=== PATIENT | female | born 1945 | race Caucasian/White ===

== ENCOUNTER 2017-05-05 12:31 | Day surgery (SDC) | payer MEDICARE, OTHER, SELFPAY ==
[2017-05-05] VITALS (11 sets, daily range): BP systolic 126–145; BP diastolic 73–90; PULSE 85–99; RESP 16–20; TEMP 36.1–36.7; O2SAT 93–100; BMI 25.8
--- NOTE | 2017-05-05 12:51 | EKG12_ITS ---
Test Reason : CP Blood Pressure : / mmHG Vent. Rate : 093 BPM Atrial Rate : 093 BPM P-R Int : 168 ms QRS Dur : 092 ms QT Int : 356 ms P-R-T Axes : 056 -22 058 degrees QTc Int : 442 ms Normal sinus rhythm Normal ECG Confirmed by MARY HEALY, EMERITA ([id number]), research editor BOB KINSEY ([id number] on 05/06/2017 1:19:51 PM Referred By: CASSANDRA Confirmed By:EMERITA HERNANDEZ MD
--- NOTE | 2017-05-05 12:51 | RAD_ITS ---
STUDY: X-RAY CHEST REASON FOR EXAM: Female, 72 years old. One-month history of chest pain. TECHNIQUE: Single AP portable view of the chest. COMPARISON: Comparison is made with prior study dated April 08, 2017. FINDINGS: EKG electrodes are seen. The lungs are clear and expanded. There is no demonstrated pleural abnormality. There is borderline cardiomegaly. Normal mediastinum and arnav. Normal visualized pulmonary arteries. There is atherosclerotic calcification of the aortic arch with tortuosity. There is a dextroscoliosis of the thoracic spine. Normal visualized ribs, clavicles, and shoulders. There is no demonstrated abnormality of the visualized soft tissue structures of the upper abdomen. RAD/Chest 1 View (Portable) IMPRESSION: Borderline cardiomegaly. No acute abnormality is seen. Electronically Signed: Josr Su MD at 13:17 EST Tel [phone], Service support ,
--- NOTE | 2017-05-05 12:54 | ED.DCSUM_ITS ---
- ER Visit Summary Date of Service: 05/05/17 Chief Complaint: Chest pain History of Present Illness: The patient is a 72 F patient sent down by Dr. Toscano for evaluation. Seen approximately a month ago for chest pains in the ED. Boot Maker is Dr. Denny. States daily chest pain symptoms down her left arm and dyspnea with ambulation. Symptoms resolved with rest. Remote tobacco. History diabetes and hypercholesterolemia. Still with chronic back pain followed by pain management. No injuries. Also is on eardrops for right ear pain by Dr. Lazaro. No fevers. Patient had a stress test ordered today, however did not well well enough for the testing. Last stress test was in 2004. Currently no chest pains. Physical Examination: General: Alert and oriented ?3, no acute distress HEENT: Normocephalic, atraumatic. Moist mucosa membranes. Scarring around TM right ear, no erythema. Neck: supple, nontender. Cardiovascular: Regular rate and rhythm, no murmurs Respiratory: Normal breath sounds, symmetric, no distress Abdomen: Soft, nontender, nondistended Extremities: Nontender, no edema, pulses intact ?4 Neuro: no focal neurological deficits. Test Results: EKG: Sinus rate of 93, no ST or T-wave changes. Cardiac labs, chest x-ray pending. Emergency Department Course and Treatment: Patient evaluated, Dr. Toscano was bedside. EKG normal. Plan is to take the patient to straight to heart cath from the ED. Labs are ordered and is pending. She took aspirin at home today. Treatment Plan: Heart cath by cardiology Disposition: After heart cath by cardiology Impression: Acute chest pain This note was generated with [employer] dictation software. It may contain incorrect words, spelling, and punctuation that were not noted in review of the chart prior to signing ED Disposition - Plan for ED Patient: Disposition: Acute Care Hospital - Other Chief Complaint: General Illness Diagnosis: Acute chest pain
--- NOTE | 2017-05-05 13:02 | PCM.CONS.C ---
Reason for Consult Date of Consultation: 05/05/17 Reason for Consultation: Chest pain History of Present Illness: The patient is a 72 year old F no previous cardiac history who has been complaining of chest discomfort for a few months and has been seeing her primary documentation liaison Dr. Bora Denny. She describes these chest pains as being intense and sharp at times dull. She had previously been diagnosed with nonischemic cardiomyopathy and hypertension but has not had any previous cardiac catheterization. She had been scheduled to have a stress test for the above today and when she accompanied her to the hospital she also started complaining of chest discomfort at rest. It was therefore decided to defer the stress test and obtain blood work. When she went down to get the blood work done she got presyncopal and vagal. She also complained of marked shortness of breath when she exerted herself. She was therefore taken to the emergency room for evaluation and management. She was recently in the emergency room on April 08, 2017 with chest discomfort and heaviness as well as twinges. She was treated with aspirin and pain medication and subsequently discharged. It appears that she is rather concerned about this chest discomfort. She had a transthoracic echocardiogram in November 2016 which demonstrated an ejection fraction 52% with stage I diastolic dysfunction. No other wall motion abnormalities were noted. At this particular time she appears to be fading pain-free and Shultz echocardiogram demonstrates normal sinus rhythm with no acute changes. [] Past Medical History Allergies/Adverse Reactions: Allergies ciprofloxacin [From Cipro] Adverse Reaction (Verified 04/08/17 18:11) Rash erythromycin base Adverse Reaction (Verified 04/08/17 18:11) Rash Penicillins Adverse Reaction (Verified 04/08/17 18:11) Rash sulfamethoxazole [From Bactrim] Adverse Reaction (Verified 04/08/17 18:11) Rash trimethoprim [From Bactrim] Adverse Reaction (Verified 04/08/17 18:11) Rash Home Medications: Ambulatory Orders Medication Instructions Recorded Biotin 5 mg PO DAILY 03/09/17 Cholecalciferol (VIT D3) [Vitamin 5,000 unit PO DAILY 03/09/17 D] Loratadine/Pseudo 240/10 1 tablet PO DAILY 03/09/17 [Claritin-D 24 Hr] Nitroglycerin [Nitrostat] 0.4 mg SL PRN PRN 03/09/17 Omeprazole [Prilosec] 20 mg PO DAILY 03/09/17 Tizanidine HCl [Zanaflex] 4 mg PO QHS 03/09/17 Aspirin 81 mg PO DAILY 05/05/17 Docusate Sodium [Colace] 100 mg PO DAILY PRN 05/05/17 Tizanidine HCl [Tizanidine HCl] 4 mg PO BID 05/05/17 Surgical History: - - parotid surgery ASSISTANT PROFESSOR OF DRAMA History: No pertinent ASSISTANT PROFESSOR OF DRAMA history Lives: Spouse/ Significant Other Smoking Status: Former smoker Drugs: None Review of Systems - Review of Systems General: Denies: Fever, Night Sweats, Fatigue Cardiovascular: Reports: Chest Discomfort at Rest, Chest Discomfort with Exertion, Chest Pressure, Near Syncope. Denies: Chest Discomfort, Shortness of Breath, Orthopnea, PND, Peripheral Edema, Palpitations, Lightheadedness, Dizziness, Syncope Respiratory: Denies: Cough, Sputum Production, Hemoptysis Gastrointestinal: Denies: Hematemesis, Hematochezia, Melena Genitourinary: Denies: Dysuria, Hematuria Skin: Denies: Rash Psychiatric: Reports: Anxiety Subjectve: Lady in no apparent distress. Objective: Vital Signs Temp Pulse Resp BP Pulse Ox 97 F L 97 18 139/86 H 97 05/05/17 12:32 05/05/17 12:32 05/05/17 12:32 05/05/17 12:32 05/05/17 12:32 Oxygen Delivery Method Room Air Weight: 165 lb Body Mass Index (BMI) 25.8 General: Awake, Alert, Oriented x 3 HEENT: PERRL, EOMI, Sclera Non Icteric Neck: Supple, Good ROM, No Lymph Node Enlargement Lungs: Clear to auscultation Cardiovascular: Regular Rhythm, Normal S1, Normal S2, No Murmurs, No Rubs, No Gallops Vascular: No Carotid Bruits, Normal Femoral Pulses, Normal Radial Pulses, Normal Dorsalis Pedal Pulse, Normal Posterior Tibial Pulses Abdomen: Bowel Sounds Present, Soft, Non Tender, No HSM, No Organomegaly Extremities: No Cyanosis, No Clubbing, No edema Neurological: No Focal Motor or Sensory Deficit Rhythm: EKG: Sinus rhythm with no acute changes. Assessment/Plan 1. Chest discomfort Etiology of her chest discomfort is not clear at this particular time however she appears to be having it more frequently and more intensely and at this time it was decided that we should do further stress testing. I did talk to her and we decided to pursue a cardiac catheterization to assess her coronary anatomy. The risks benefits and alternatives have been explained to her she understands and agrees to proceed. Depending on the findings further recommendations will be made. 2. Hypertension Blood pressure appears to be under good control at this particular time and I would not recommend making any other changes. Thank you for allowing me to participate in the care of your patient. Please don't hesitate to call if any issues arise
[2017-05-05 13:19] LABS: Absolute Lymphocyte Count 1.33 X10^3/ul (0.83-4.51); Absolute Neutrophil Count 3.6 X10^3/uL (2.0-7.7); Basophil# 0.03 X10^3/uL; Basophil% 0.5 % (0-1); Eosinophil# 0.06 X10^3/uL; Eosinophils% 1.1 % (0-5); Hematocrit 38.5 % (37-47); Hemoglobin 12.6 g/dl (12.0-15.0); Lymphocyte # 1.33 X10^3/ul (4.0); Lymphocyte % 24.1 % (19-41); Mean Corp Hgb Conc 32.7 g/gl (32-36); Mean Corpuscular Hgb 29.5 pg (27.0-32.0); Mean Corpuscular Volume 90.2 fL (81-99); Mean Platelet Vol. 9.8 fl (6.2-12.0); Monocyte# 0.54 X10^3/uL; Monocyte% 9.8 % (0-10); Neutrophil # 3.55 X10^3/uL (2.7-7.7); Neutrophil % 64.3 % (47-70); Platelet Count 245 K/mm3 (150-450); RBC Distribution Width CV 12.2 % (11.6-14.6); RBC Distribution Width SD 39.7 fl (35.1-43.9); Red Blood Count 4.27 M/mm3 (4.2-5.4); White Blood Count 5.5 K/mm3 (4.4-11.0)
[2017-05-05 13:22] LABS: Prothrombin Time (Protime)PT. 12.8 SECONDS (11.7-14.9)
[2017-05-05 13:23] LABS: Partial Thromboplast Time 27.5 Seconds (24.1-36.2)
[2017-05-05 13:27] LABS: POSITIVE COUNT NO; POSITIVE DIFFERENTIAL NO; POSITIVE MORPHOLOGY NO
--- NOTE | 2017-05-05 13:29 | NURSING ---
PT IS NOT A STEMI. PT WAS SET UP FOR AN OUTPATIENT STRESS TEST, HOWEVER THE STORE PRODUCT DEMONSTRATOR WANTED TO JUST DO A CATH ON HER AND THEN DISCHARGE HER FROM BUSINESS INTEGRATION ANALYST.
[2017-05-05 13:30] LABS: Anion Gap 10 (5-15); BUN 20 mg/dL (7-18); BUN/Creat Ratio 25.6 RATIO (10-20); Calcium,Total 9.3 mg/dL (8.5-10.1); Chloride 105 mmol/L (98-107); Creatinine, Serum 0.78 mg/dL (0.55-1.02); EST Glomerular Filtration Rate 77 mL/min (>60); Est Glom Filt Rate - Afr Amer 93 mL/min (>60); Estimated Creatinine Clearance 49.45 ml/min; Glucose 134 mg/dL (74-106); Potassium 3.9 mmol/L (3.5-5.1); Sodium Level 140 mmol/L (136-145)
--- NOTE | 2017-05-05 14:42 | CL.D_ITS ---
Patient Name: AMALIA BRIGGS Study Date: 05/05/2017 Performing: Farshad Toscano MD Ht: 67 inches 170 cm : 1945 Wt: 165.6 lbs 75 kg Age: 72 Gender: female BSA: 1.86 PROCEDURE(S) PERFORMED [id number]/LV CLINICAL PROFILE AND INDICATIONS INDICATIONS: 72 yo lady with chest pain Stress/Imaging Stress/Image Study Performed: No CAD Presentations: No Sxs, no angina. Symptom unlikely to be ischemic. CONCLUSIONS Non obstructive coronary arteries RECOMMENDATIONS Medical therapy DESCRIPTION OF PROCEDURE The patient arrived to the procedure lab. The risks and benefits of the procedure as well as a full d escription of our services here and current unavailability of surgical backup were fully explained to the patient and/or their significant other prior to the catheterization. The Timeout was completed, verifying the correct patient and procedure. The patient's procedural site was prepped and draped in the usual fashion. Local anesthetic was given subcutaneously to right radial region with Lidocaine 2% . Using a modified Seldinger technique, arterial access was obtained via the right radial artery, a 6 Fr sheath was inserted. Left Coronary Artery selective angiography was performed in multiple views u sing a 5 Fr. 4.0 Ulm catheter. Right Coronary Artery selective angiography was then performed in mu ltiple views using a 5 Fr. 4.0 Ulm catheter. Left Ventriculography was performed in SALINAS projection using a 5 Fr. Pigtail catheter. LV to AO pullback pressures were then recorded.The arterial sheath wa s pulled and a TR Band was applied for hemostasis- 14cc of air CORONARY ANGIOGRAPHY DOMINANCE: Right Dominant LEFT HEART ASSESSMENT Left Ventricular Ejection Fraction: by LV Gram 55 % Normal Left Ventricular systolic function LEFT MAIN: Angiographically normal LEFT ANTERIOR DECENDING ARTERY: Mild luminal irregularities MID LAD: Moderate luminal irregularities up to 50% CIRCUMFLEX ARTERY: Mild luminal irregularities RIGHT CORONARY ARTERY: Mild luminal irregularities COMPLICATIONS No Complications PROCEDURE MEDICATIONS Versed 1 mg IV Fentanyl 50 mcg IV Versed 1 mg IV Oxygen: 2 L/min via nasal cannula Heparin diluted in 23cc Heparinized saline. Patient given 10cc IA of this solution. 05/05/2017 14:12: 53 Verapamil 2.5mg, Ntg 100mcgs, 2000 units of Heparin diluted in 23cc Heparinized saline. Patient give n 10cc IA of this solution. 05/05/2017 14:12:53 SUMMARY OF HEMODYNAMIC DATA Time AIR REST ECG 13:47:01 AO 102/77 (91) SA 14:15:18 LV 142/8, 16 14:23:26 LV 145/6, 13 14:23:33 LV 141/8, 15 14:24:38 LVp 143/7, 15 14:24:42 AOp 130/67 (95) 14:24:47 Signed By Farshad Toscano MD On 05/05/2017 2:42:05 PM Farshad Toscano MD
== END 2017-05-05 18:20 | disposition home or self-care (01) ==
LOC: ED 13:21 → CLSP 13:25 → PCU 14:56
PROVIDERS: Emergency Provider Emergency Medicine; Family Provider Internal Medicine; PCP Internal Medicine; Visit Provider Internal Medicine Cardiovascular Disease
DX: R07.9 Chest pain, unspecified (principal); I10 Essential (primary) hypertension; Z87.891 Personal history of nicotine dependence
CPT/HCPCS: 71045; 80048; 84484; 85025; 85610; 85730; 93005; 93458; 99152; 99153; 99284; J7040; Q9967; A4216; C1769; C1894

== ENCOUNTER 2017-09-28 09:41 | Emergency (ER) | payer MEDICARE, OTHER, SELFPAY ==
[2017-09-28 09:42] VITALS: BP 152/91; PULSE 98; RESP 15; TEMP 36.1; O2SAT 98; BMI 25.7
--- NOTE | 2017-09-28 09:58 | CT_ITS ---
STUDY: CT BRAIN WITHOUT CONTRAST REASON FOR EXAM: Female, 72 years old. Right-sided facial numbness for one month. RADIATION DOSAGE (If Supplied By Facility): CTDIvol = ( 44.99 ) mGy, DLP = ( 846.73 ) mGycm TECHNIQUE: Transaxial CT imaging of the brain was performed without administration of intravenous contrast material. Multiplanar reformations are submitted for interpretation. Individualized dose optimization techniques were used for this CT. COMPARISON: Prior comparable comparison studies are not available for review at this time. FINDINGS: Patient apparently has had surgical resection of the right parotid gland. 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 There is opacification of the right mastoid. This may be the result of acute or chronic disease. Sequela of treatment and/or metastatic parotid cancer is also possible. There is mild cerebral atrophy with widening of the extra-axial spaces and ventricular dilatation. There are areas of decreased attenuation within the white matter tracts of the supratentorial brain, consistent with microvascular disease changes. There are focal calcifications within the basal ganglia. Normal brainstem. There is mild cerebellar atrophy. There is no intracranial hemorrhage. There is mild atherosclerotic calcification of intracranial arteries. Normal visualized paranasal sinuses. CT/Brain/Head without Contrast IMPRESSION: 1. Chronic involutional changes of the brain. 2. No CT evidence of acute intracranial hemorrhage. 3. Status post right-sided parotidectomy. 4. Abnormal attenuation and opacification of the right-sided mastoid air cells may be the result of radiation therapy. An acute inflammatory process cannot be excluded. Electronically Signed: Trina Aguila MD at 10:39 EDT , Service support ,
--- NOTE | 2017-09-28 09:59 | EKG12_ITS ---
Test Reason : OTHER PAIN Blood Pressure : / mmHG Vent. Rate : 088 BPM Atrial Rate : 088 BPM P-R Int : 152 ms QRS Dur : 088 ms QT Int : 354 ms P-R-T Axes : 041 -21 049 degrees QTc Int : 428 ms Normal sinus rhythm Leftward axis Poor R wave progression Confirmed by DALE HEALY, JOSE ([id number]), editor house organ BOB KINSEY ([id number]) on 10/02/2017 1:02:57 PM Referred By: KOLE Confirmed By:JOSE HUNTER MD
--- NOTE | 2017-09-28 10:06 | ED.VISSUMM ---
- ER Visit Summary Date of Service: 09/28/17 Chief Complaint: Pain, arm pain, shortness of breath History of Present Illness: The patient is a 72 F who presents with multiple complaints. She has a history of chronic back pain and pain that radiates down her left arm. She states the pain has become constant and more severe. She has tried injections in the past with pain management. She states she is currently just taking Tylenol or ibuprofen. She is also complaining of right facial numbness for the past 1 month. She reports a history of shingles to that same area approximately a year and a half ago, the numbness did not start until recently. She complains of a full sensation in her right ear as if there is something in her ear. She is complaining of shortness of breath on exertion and states she is only able to take small steps when she walks, describing her legs just cannot keep up with her. She states she gets a pressure sensation in her trunk region with exertion. Patient's records were reviewed. She did have a cardiac cath in April that showed no significant coronary disease. 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 She again reports no facial numbness to that area after her surgery, it has only started in the past month or so. Physical Examination: Blood pressure is 152/91, temperature 97, heart rate 98, respiratory rate 15, pulse ox 98% on room air. Patient sitting upright in bed no acute distress. Head and neck examination reveals cerium in the right ear canal. Left TM is clear. There is no facial edema or erythema. Heart is regular rate and rhythm. Lung sounds are clear with good air movement. Abdomen is soft nontender. Patient does report decreased sensation to light touch over the right face. She has full range of motion to all extremities. She has strong and equal distal pulses throughout. Test Results: EKG is sinus 88 with no sign of acute ischemia. Two-view chest x-ray is normal. CT the head shows chronic involutional changes. There is abnormal attenuation of the right mastoid air cell which may be result of radiation. Acute inflammatory process is not excluded. Patient does confirm that she had radiation to this area. CBC and chemistry studies are unremarkable. Troponin is less than 0.015. D-dimer 0.47. Emergency Department Course and Treatment: Patient was given 1 tab of p.o. oxycodone. Debrox was placed in the right ear and right ear was irrigated. On repeat examination cerumen has been removed. She has a slightly hazy fluid behind the TM but no erythema or bulging. My suspicion is that her facial paresthesias are secondary to nerve damage from her prior surgery as well as her shingles. She was encouraged to follow-up with her primary care physician for this. She will be referred to different pain management physicians in the area as she was would like a second opinion. Treatment Plan: [] Disposition: Discharge Impression: 1. Chronic back pain with radiculopathy 2. Dyspnea, uncertain etiology This note was generated with [employer] dictation software. It may contain incorrect words, spelling, and punctuation that were not noted in review of the chart prior to signing ED Disposition - Plan for ED Patient: Chief Complaint: Other, Pain/Inj Referrals: Janki Conrad MD [Primary Care Provider] -
[2017-09-28] MEDS: oxyCODONE 5 MG Tablet PO (10:12)
[2017-09-28] MEDS: Carbamide Peroxide 15 ML Bottle 5 DRP OTIC (10:13)
--- NOTE | 2017-09-28 10:30 | RAD_ITS ---
STUDY: X-RAY CHEST REASON FOR EXAM: Female, 72 years old. Shortness of breath. TECHNIQUE: PA and lateral views of the chest. COMPARISON: May 05, 2017. FINDINGS: Cardiac monitoring leads are present. There are interstitial fibrotic changes of the lungs. There is pleural fibrotic thickening of the pulmonary lung apices. Normal size heart. There are calcified mediastinal and hilar lymph nodes. Normal visualized pulmonary arteries. There is atherosclerotic tortuosity of the aortic arch and descending thoracic aorta. There is demineralization of the osseous structures. There are multilevel degenerative changes of the thoracic spine. Normal visualized ribs, clavicles, and shoulders. Endovascular coils are visible in left upper quadrant. RAD/Chest PA and Lateral IMPRESSION: No radiographic evidence of acute cardiopulmonary disease. Electronically Signed: Trina Aguila MD at 10:43 EDT , Service support ,
[2017-09-28 10:38] LABS: Absolute Lymphocyte Count 0.96 X10^3/ul (0.83-4.51); Absolute Neutrophil Count 3.7 X10^3/uL (2.0-7.7); Basophil# 0.02 X10^3/uL; Basophil% 0.4 % (0-1); Eosinophils% 1.9 % (0-5); Hematocrit 37.6 % (37-47); Hemoglobin 12.8 g/dl (12.0-15.0); Lymphocyte # 0.96 X10^3/ul (4.0); Lymphocyte % 18.6 % (19-41); Mean Corpuscular Hgb 30.8 pg (27.0-32.0); Mean Corpuscular Volume 90.4 fL (81-99); Mean Platelet Vol. 9.6 fl (6.2-12.0); Monocyte# 0.42 X10^3/uL; Monocyte% 8.1 % (0-10); Neutrophil # 3.65 X10^3/uL (2.7-7.7); Neutrophil % 70.8 % (47-70); POSITIVE COUNT NO; POSITIVE DIFFERENTIAL NO; POSITIVE MORPHOLOGY NO; Platelet Count 283 K/mm3 (150-450); RBC Distribution Width SD 39.6 fl (35.1-43.9); Red Blood Count 4.16 M/mm3 (4.2-5.4); White Blood Count 5.2 K/mm3 (4.4-11.0)
[2017-09-28 10:39] LABS: D-Dimer Quantitative (DVT/PE) 0.47 FEU/ug/m (0.27-0.49)
[2017-09-28 10:47] LABS: Anion Gap 10 (5-15); BUN 18 mg/dL (7-18); BUN/Creat Ratio 20.2 RATIO (10-20); Calcium,Total 9.1 mg/dL (8.5-10.1); Chloride 101 mmol/L (98-107); Creatinine, Serum 0.89 mg/dL (0.55-1.02); EST Glomerular Filtration Rate 66 mL/min (>60); Est Glom Filt Rate - Afr Amer 80 mL/min (>60); Estimated Creatinine Clearance 55.56 ml/min; Glucose 140 mg/dL (74-106); Sodium Level 134 mmol/L (136-145)
--- NOTE | 2017-09-28 11:37 | ED.DEP ---
ED Disposition - Plan for ED Patient: Disposition: Home or Assisted Living Chief Complaint: Other, Pain/Inj Instructions: ED Neck Back Pain General, ED Dyspnea Shortness of Breath Prescriptions: Oxycodone HCl/Acetaminophen [Percocet 5/325] 1 tablet PO Q6H PRN PRN 3 Days #12 tablet PRN Reason: Pain Referrals: Janki Conrad MD [Primary Care Provider] - As soon as possible
--- NOTE | 2017-09-28 11:43 | ED.DEP ---
ED Disposition - Plan for ED Patient: Disposition: Home or Assisted Living Chief Complaint: Other, Pain/Inj Instructions: ED Dyspnea Shortness of Breath, ED Neck Back Pain General Prescriptions: Oxycodone HCl/Acetaminophen [Percocet 5/325] 1 tablet PO Q6H PRN PRN 3 Days #12 tablet PRN Reason: Pain Referrals: Janki Conrad MD [Primary Care Provider] - As soon as possible Renato Romero MD [STAFF PHYSICIAN] - Haroon Fulton MD [STAFF PHYSICIAN] -
== END 2017-09-28 11:50 | disposition home or self-care (01) ==
PROVIDERS: Emergency Provider Emergency Medicine; Family Provider Internal Medicine; PCP Internal Medicine
DX: R06.02 Shortness of breath (principal); G89.29 Other chronic pain; M54.9 Dorsalgia, unspecified; M54.10 Radiculopathy, site unspecified; R06.00 Dyspnea, unspecified; E11.9 Type 2 diabetes mellitus without complications; E78.00 Pure hypercholesterolemia, unspecified; Z85.89 Personal history of malignant neoplasm of other organs and systems
CPT/HCPCS: 70450; 71046; 80048; 84484; 85025; 85379; 93005; 99285

== ENCOUNTER 2017-10-14 18:18 | Emergency (ER) | payer MEDICARE, OTHER, SELFPAY ==
[2017-10-14 18:18] VITALS: BP 157/82; PULSE 100; PULSE 97; RESP 16; RESP 18; TEMP 36.9; O2SAT 98; O2SAT 99; BMI 25.0
--- NOTE | 2017-10-14 18:31 | ED.RN ---
RN CALLED FOR EKG, PULLED OLD EKG'S FOR
[2017-10-14 18:32] VITALS: BP 141/79; PULSE 98; RESP 20; O2SAT 96
--- NOTE | 2017-10-14 18:40 | US_ITS ---
STUDY: VENOUS DOPPLER ULTRASOUND - LEFT LOWER EXTREMITY REASON FOR EXAM: Female, 72 years old. Left leg pain. TECHNIQUE: Ultrasound evaluation of the deep vein system to include brar-scale imaging and compression was performed. Brar-scale imaging and Doppler sonographic evaluation, including duplex spectral analysis and qualitative color flow sonography, was performed. COMPARISON: None. FINDINGS: Common Femoral Vein: Normal compression, spontaneity and augmentation. Normal color Doppler. Common Femoral Vein/Greater Saphenous Junction: Normal compression, spontaneity and augmentation. Normal color Doppler. Deep Femoral Vein: Normal compression, spontaneity and augmentation. Normal color Doppler. Femoral Proximal: Normal compression, spontaneity and augmentation. Normal color Doppler. Femoral Middle: Normal compression, spontaneity and augmentation. Normal color Doppler. Femoral Distal: Normal compression, spontaneity and augmentation. Normal color Doppler. Popliteal Vein: Normal compression, spontaneity and augmentation. Normal color Doppler. Posterior Tibial Vein: Normal compression, spontaneity and augmentation. Normal color Doppler. Peroneal Vein: Normal compression, spontaneity and augmentation. Normal color Doppler. There is no demonstrated deep venous thrombosis. US/Venous Duplex Imag/Limited/Uni IMPRESSION: Normal venous Doppler ultrasound of the lower extremity. Electronically Signed: Fabio Poon MD at 19:14 EDT , Service support ,
--- NOTE | 2017-10-14 19:17 | ED.DCSUM_ITS ---
- ER Visit Summary Date of Service: 10/14/17 Chief Complaint: Left leg pain History of Present Illness: The patient is a 72 F who presents with left leg pain. She complains of aching pain in her calf that began earlier today. She also complains of some numbness in the lower leg and foot. She does complain of back pain and left arm pain as well however this is been a chronic recurrent issue which she was recently evaluated for. No chest pain or shortness of breath. No recent travel or surgery. No history of DVT or pulmonary embolism. No abdominal pain. Physical Examination: Afebrile vitals are unremarkable Moist mucous membranes Heart regular rate and rhythm Lungs are clear Abdomen soft Left calf tenderness but easily palpable dorsalis pedis pulse brisk capillary refill normal sensation to light touch Normal strength and sensation 5 out of 5 dorsiflexion, plantar flexion, extensor hallucis longus Test Results: Venous duplex is negative for DVT Emergency Department Course and Treatment: Venous duplex was obtained which is negative. Patient does not have evidence of arterial ischemia. Sensation is intact to light touch. Advised that this could be due to lumbar radiculopathy. She was advised to follow-up with her primary care physician. She was instructed on supportive care. She was discharged. Treatment Plan: [] Disposition: Discharge Impression: Left leg pain This note was generated with [employer] dictation software. It may contain incorrect words, spelling, and punctuation that were not noted in review of the chart prior to signing ED Disposition - Plan for ED Patient: Chief Complaint: Other, Pain/Inj Referrals: Janki Conrad MD [Primary Care Provider] -
--- NOTE | 2017-10-14 19:18 | ED.DEP ---
ED Disposition - Plan for ED Patient: Chief Complaint: Other, Pain/Inj Instructions: ED Muscle Pain Leg Cramps Referrals: Janki Conrad MD [Primary Care Provider] -
[2017-10-14 19:23] VITALS: BP 138/78; PULSE 92; RESP 14; O2SAT 94
== END 2017-10-14 19:32 | disposition home or self-care (01) ==
LOC: ED 19:11
PROVIDERS: Emergency Provider Emergency Medicine; Family Provider Internal Medicine; PCP Internal Medicine
DX: M79.662 Pain in left lower leg (principal); R20.0 Anesthesia of skin; M54.9 Dorsalgia, unspecified; M79.602 Pain in left arm; G89.29 Other chronic pain; K21.9 Gastro-esophageal reflux disease without esophagitis; E11.9 Type 2 diabetes mellitus without complications; Z86.39 Personal history of other endocrine, nutritional and metabolic disease; Z90.49 Acquired absence of other specified parts of digestive tract; Z79.82 Long term (current) use of aspirin; Z79.899 Other long term (current) drug therapy
CPT/HCPCS: 93971; 99282

== ENCOUNTER 2017-10-29 18:32 | Emergency (ER) | payer MEDICARE, OTHER, SELFPAY ==
[2017-10-29 18:33] VITALS: BP 166/94; PULSE 94; RESP 18; TEMP 36.9; O2SAT 97; BMI 25.0
--- NOTE | 2017-10-29 19:05 | RAD_ITS ---
STUDY: X-RAY CHEST REASON FOR EXAM: Female, 72 years old. Chest pain TECHNIQUE: 1 view COMPARISON: Prior chest radiograph of September 28, 2017 FINDINGS: The lungs are clear and expanded. Mild elevation of the left diaphragm. Normal size heart. Normal mediastinum and arnav. Normal visualized pulmonary arteries. There is atherosclerotic calcification of the aortic arch with tortuosity. There are diffuse degenerative changes of the visualized thoracic spine with a dextroscoliosis. Demineralized osseous structures. Stable group of coiled metallic opacities of the left abdomen. RAD/Chest 1 View (Portable) IMPRESSION: No acute cardiopulmonary findings or changes. Negative for new consolidation, focal atelectasis, cardiomegaly or pleural effusion. Mild elevation of the left diaphragm. Electronically Signed: Char Goldman MD at 19:16 EDT , Service support ,
[2017-10-29 19:14] VITALS: O2SAT 95
[2017-10-29] MEDS: 0.9% Normal Saline 1,000 ML 150 ML IV (19:15)
[2017-10-29] MEDS: Aspirin 81 MG TAB.CHEW 324 MG PO (19:15)
[2017-10-29 19:20] LABS: Absolute Lymphocyte Count 1.43 X10^3/ul (0.83-4.51); Absolute Neutrophil Count 4.2 X10^3/uL (2.0-7.7); Basophil# 0.02 X10^3/uL; Basophil% 0.3 % (0-1); Eosinophil# 0.11 X10^3/uL; Eosinophils% 1.8 % (0-5); Hematocrit 37.9 % (37-47); Hemoglobin 12.8 g/dl (12.0-15.0); Lymphocyte # 1.43 X10^3/ul (4.0); Lymphocyte % 22.8 % (19-41); Mean Corp Hgb Conc 33.8 g/gl (32-36); Mean Corpuscular Hgb 30.3 pg (27.0-32.0); Mean Corpuscular Volume 89.8 fL (81-99); Mean Platelet Vol. 9.9 fl (6.2-12.0); Monocyte# 0.54 X10^3/uL; Monocyte% 8.6 % (0-10); Neutrophil # 4.16 X10^3/uL (2.7-7.7); Neutrophil % 66.3 % (47-70); POSITIVE COUNT NO; POSITIVE DIFFERENTIAL NO; POSITIVE MORPHOLOGY NO; Platelet Count 287 K/mm3 (150-450); RBC Distribution Width SD 38.9 fl (35.1-43.9); Red Blood Count 4.22 M/mm3 (4.2-5.4); White Blood Count 6.3 K/mm3 (4.4-11.0)
[2017-10-29 20:05] VITALS: BP 164/86; PULSE 89; RESP 13; O2SAT 95
[2017-10-29 20:17] LABS: Anion Gap 11 (5-15); BUN 14 mg/dL (7-18); BUN/Creat Ratio 14.5 RATIO (10-20); Calcium,Total 9.1 mg/dL (8.5-10.1); Chloride 98 mmol/L (98-107); Creatinine, Serum 0.97 mg/dL (0.55-1.02); EST Glomerular Filtration Rate 60 mL/min (>60); Est Glom Filt Rate - Afr Amer 73 mL/min (>60); Estimated Creatinine Clearance 50.98 ml/min; Glucose 189 mg/dL (74-106); Potassium 3.8 mmol/L (3.5-5.1); Sodium Level 133 mmol/L (136-145)
--- NOTE | 2017-10-29 20:36 | NURSING ---
PATIENT TOLD TRANSIT OPERATOR AND THIS NURSE ABOUT HER MISSING PURPLE CANE. THIS NURSE AND OTHER STAFF LOOKED IN THE WAITING ROOM AND TRIAGE ROOM ALONG WITH HER ROOM AND WE ARE UNABLE TO LOCATE IT. THIS NURSE LET SECURITY KNOW ABOUT AND HE IS GOING TO FOLLOW UP WITH THE PATIENT.
--- NOTE | 2017-10-29 20:58 | ED.RN ---
DR. JANE MADE AWARE OF PATIENT'S NAUSEA AND VERBALLY TOLD ME TO PUT AN ORDER IN FOR ZOFRAN 4 MG WHICH I DID AND GAVE TO HER. THE HEMP FIBER TAKER OFF CHECKED IN THE PATIENT'S CAR AND SHE LEFT HER PURPLE CANE IN THERE. PATIENT WAS MADE AWARE.
[2017-10-29 21:02] VITALS: BP 146/106; PULSE 90; RESP 16; O2SAT 96
[2017-10-29] MEDS: Ondansetron 4 MG/2 ML Vial IV (21:02)
--- NOTE | 2017-10-29 21:56 | ED.VISSUMM ---
- ER Visit Summary Date of Service: 10/29/17 Chief Complaint: [Chest pain] History of Present Illness: The patient is a 72 F [presents the emergency department complaint chest pain for over 2 weeks. Patient states that she has intermittent episodes lasting over an hour at times. Patient states at times it is brought on by exertion. Patient describes a lot of pressure in center of her chest and epigastric region. Patient also describes a cough that she has had for 5 weeks and right ear congestion. Patient has been seen by ENT and is currently on clindamycin. Patient denies recent travel or surgery. Patient tells me that she was seen by cardiology and had a heart catheterization that was done in April of this year that did not show anything significant that would require any type of intervention. Patient does not currently have discomfort.] Physical Examination: [HEENT-PERRLA, EOMI. Cranial nerves II through XII grossly intact. TMs clear. Mucous membranes moist. No adenopathy. Cardiovascular-regular rate and rhythm without murmur or ectopy Lungs-clear to auscultation, chest wall stable without crepitus or subcu emphysema Abdomen-normoactive bowel sounds, soft, nontender, no rebound or rigidity, no peritoneal signs. Extremities-intact ?4, normal range of motion, normal pulses, atraumatic] Test Results: [EKG obtained on arrival showed a normal sinus rhythm with a ventricular rate of 92 bpm with no acute ST segment changes. CBC with differential obtained showed a white count of 6.3, hemoglobin 12.8, hematocrit 38, platelets 287. Chemistries unremarkable. Troponin is less than 0.015. D-dimer was 0.40. Chest x-ray showed a mild left hemidiaphragm elevation otherwise nothing acute.] Emergency Department Course and Treatment: [Patient received aspirin in the emergency department] Treatment Plan: [I did review patient's heart cath from April of this year and it was noted that she had no obstructive coronary arteries. Her LV function was 55%, left main was angiographically normal, left anterior descending had mild luminal irregularities, mid LAD had moderate luminal irregularities up to 50%, circumflex artery had mild luminal irregularities, and right coronary artery had mild luminal irregular piece. At this point I do not feel her chest pain is cardiac in nature. Patient also with respiratory symptoms including persistent cough and deep congestion. I discussed case with patient's tight cooper Dr. Froylan Saunders. At this point patient will be given referral to pulmonology for follow-up.] Disposition: [Discharged home in stable condition] Impression: [Chest pain-etiology uncertain Cough-chronic] This note was generated with [employer] dictation software. It may contain incorrect words, spelling, and punctuation that were not noted in review of the chart prior to signing ED Disposition - Plan for ED Patient: Chief Complaint: Chest Pain Referrals: Janki Conrad MD [Primary Care Provider] -
--- NOTE | 2017-10-29 21:59 | ED.DCSUM_ITS ---
- ER Visit Summary Date of Service: 10/29/17 Chief Complaint: [Chest pain] History of Present Illness: The patient is a 72 F [presents the emergency department complaint chest pain for over 2 weeks. Patient states that she has intermittent episodes lasting over an hour at times. Patient states at times it is brought on by exertion. Patient describes a lot of pressure in center of her chest and epigastric region. Patient also describes a cough that she has had for 5 weeks and right ear congestion. Patient has been seen by ENT and is currently on clindamycin. Patient denies recent travel or surgery. Patient tells me that she was seen by cardiology and had a heart catheterization that was done in April of this year that did not show anything significant that would require any type of intervention. Patient does not currently have discomfort.] Physical Examination: [HEENT-PERRLA, EOMI. Cranial nerves II through XII grossly intact. TMs clear. Mucous membranes moist. No adenopathy. Cardiovascular-regular rate and rhythm without murmur or ectopy Lungs-clear to auscultation, chest wall stable without crepitus or subcu emphysema Abdomen-normoactive bowel sounds, soft, nontender, no rebound or rigidity, no peritoneal signs. Extremities-intact ?4, normal range of motion, normal pulses, atraumatic] Test Results: [EKG obtained on arrival showed a normal sinus rhythm with a ventricular rate of 92 bpm with no acute ST segment changes. CBC with differential obtained showed a white count of 6.3, hemoglobin 12.8, hematocrit 38, platelets 287. Chemistries unremarkable. Troponin is less than 0.015. D- dimer was 0.40. Chest x-ray showed a mild left hemidiaphragm elevation otherwise nothing acute.] Emergency Department Course and Treatment: [Patient received aspirin in the emergency department] Treatment Plan: [I did review patient's heart cath from April of this year and it was noted that she had no obstructive coronary arteries. Her LV function was 55%, left main was angiographically normal, left anterior descending had mild luminal irregularities, mid LAD had moderate luminal irregularities up to 50%, circumflex artery had mild luminal irregularities, and right coronary artery had mild luminal irregular piece. At this point I do not feel her chest pain is cardiac in nature. Patient also with respiratory symptoms including persistent cough and deep congestion. I discussed case with patient's white sugar supervisor Dr. Froylan Saunders. At this point patient will be given referral to pulmonology for follow-up.] Disposition: [Discharged home in stable condition] Impression: [Chest pain-etiology uncertain Cough-chronic] This note was generated with [employer] dictation software. It may contain incorrect words, spelling, and punctuation that were not noted in review of the chart prior to signing ED Disposition - Plan for ED Patient: Chief Complaint: Chest Pain Referrals: Janki Conrad MD [Primary Care Provider] -
--- NOTE | 2017-10-29 22:00 | ED.DEP ---
ED Disposition - Plan for ED Patient: Chief Complaint: Chest Pain Instructions: ED Chest Pain Atypical Unkn Cause Referrals: Janki Conrad MD [Primary Care Provider] - Bogdan Cherry MD [STAFF PHYSICIAN] - 5-7 Days
[2017-10-29 22:03] VITALS: BP 165/93; PULSE 88; RESP 15; O2SAT 95
[2017-10-29 22:04] VITALS: BP 165/93; PULSE 88; RESP 17; O2SAT 94
== END 2017-10-29 22:13 | disposition home or self-care (01) ==
PROVIDERS: Emergency Provider Emergency Medicine; Family Provider Internal Medicine; PCP Internal Medicine
DX: R07.9 Chest pain, unspecified (principal); R05 Cough; R06.00 Dyspnea, unspecified; E11.9 Type 2 diabetes mellitus without complications; Z85.89 Personal history of malignant neoplasm of other organs and systems
CPT/HCPCS: 71045; 80048; 84484; 85025; 85379; 93005; 99284; J7030; A4216; J2405

== ENCOUNTER 2017-12-18 12:26 | Emergency (ER) | payer MEDICARE, OTHER, SELFPAY ==
[2017-12-18 12:27] VITALS: BP 127/76; PULSE 101; RESP 18; TEMP 36.6; O2SAT 98; BMI 25.8
[2017-12-18 12:33] VITALS: BP 120/75; PULSE 75; RESP 14; O2SAT 98
--- NOTE | 2017-12-18 13:03 | ED.VISSUMM ---
- ER Visit Summary Date of Service: 12/18/17 Chief Complaint: Chronic back pain History of Present Illness: The patient is a 72 F history of chronic pain for years. States that she sees pain management Dr. Alonso's office. Also see Dr. Conrad. Has a pending MRI at [facility] in 3-4 weeks. States he has to be sedated for that to be done. She states her pain is progressively gotten worse over the last several months. Nothing helps her pain. She states she has no relief with Tylenol, Motrin, Percocet, Vicodin or other medications. She denies any recent falls. She denies any recent fever. She denies any weakness to her upper or lower extremities. States the pain starts in her lower back goes all the way up to her neck. Sometimes radiates down her left arm. She denies any bowel or bladder incontinence. Physical Examination: Well-appearing older female. Family at bedside. Vital signs stable afebrile. H EENT exam unremarkable. Neck nontender. Lungs clear to auscultation bilaterally. Heart regular rhythm no murmur. Chest nontender. Abdomen soft nontender. She is moving all 4 extremities. They are neurovascularly intact. She has 5 out of 5 disabilities caregiver strength in both upper extremities. Dorsi and plantar flexion intact in both lower extremities. No cauda equina. No saddle anesthesia. Normal medial thigh sensation. Her back has diffuse tenderness along the spine. There is no redness or warmth. No signs of trauma. Neurologically she is awake and alert with no focal motor or sensory deficits. Test Results: None Emergency Department Course and Treatment: I discussed with the patient and family with limited options since nothing is helped her. She requested to be tried on a fentanyl patch. She will be discharged to home and she will follow-up with her pain management physician Dr. Alonso. Treatment Plan: Fentanyl patch. Disposition: Discharge Impression: Acute on chronic back pain This note was generated with [employer] dictation software. It may contain incorrect words, spelling, and punctuation that were not noted in review of the chart prior to signing ED Disposition - Plan for ED Patient: Chief Complaint: Back Referrals: Janki Conrad MD [Primary Care Provider] -
--- NOTE | 2017-12-18 13:06 | ED.DCSUM_ITS ---
- ER Visit Summary Date of Service: 12/18/17 Chief Complaint: Chronic back pain History of Present Illness: The patient is a 72 F history of chronic pain for years. States that she sees pain management Dr. Alonso's office. Also see Dr. Conrad. Has a pending MRI at [facility] in 3-4 weeks. States he has to be sedated for that to be done. She states her pain is progressively gotten worse over the last several months. Nothing helps her pain. She states she has no relief with Tylenol, Motrin, Percocet, Vicodin or other medications. She denies any recent falls. She denies any recent fever. She denies any weakness to her upper or lower extremities. States the pain starts in her lower back goes all the way up to her neck. Sometimes radiates down her left arm. She denies any bowel or bladder incontinence. Physical Examination: Well-appearing older female. Family at bedside. Vital signs stable afebrile. H EENT exam unremarkable. Neck nontender. Lungs clear to auscultation bilaterally. Heart regular rhythm no murmur. Chest nontender. Abdomen soft nontender. She is moving all 4 extremities. They are neurovascularly intact. She has 5 out of 5 cut off machine helper strength in both upper extremities. Dorsi and plantar flexion intact in both lower extremities. No c auda equina. No saddle anesthesia. Normal medial thigh sensation. Her back has diffuse tenderness along the spine. There is no redness or warmth. No signs of trauma. Neurologically she is awake and alert with no focal motor or sensory deficits. Test Results: None Emergency Department Course and Treatment: I discussed with the patient and family with limited options since nothing is helped her. She requested to be tried on a fentanyl patch. She will be discharged to home and she will follow- up with her pain management physician Dr. Alonso. Treatment Plan: Fentanyl patch. Disposition: Discharge Impression: Acute on chronic back pain This note was generated with [employer] dictation software. It may contain incorrect words, spelling, and punctuation that were not noted in review of the chart prior to signing ED Disposition - Plan for ED Patient: Chief Complaint: Back Referrals: Janki Conrad MD [Primary Care Provider] -
--- NOTE | 2017-12-18 13:06 | ED.DEP ---
ED Disposition - Plan for ED Patient: Disposition: Home or Assisted Living Chief Complaint: Back Referrals: Janki Conrad MD [Primary Care Provider] - As soon as possible Jim Alonso [NON-STAFF] - As soon as possible Additional Instructions: Use fentanyl patch if it gives her relief Dr. Gavin Conrad can write her prescription. See if they can move up your MRI or have it scheduled here at [facility] they may be able do it sooner than the next 3 weeks.
[2017-12-18 13:27] VITALS: BP 129/80; PULSE 95; RESP 14; O2SAT 98
== END 2017-12-18 13:28 | disposition home or self-care (01) ==
PROVIDERS: Emergency Provider Emergency Medicine; Family Provider Internal Medicine; PCP Internal Medicine
DX: G89.29 Other chronic pain (principal); M54.9 Dorsalgia, unspecified
CPT/HCPCS: 99283

== ENCOUNTER 2018-01-04 17:11 | Emergency (ER) | payer MEDICARE, OTHER, SELFPAY ==
[2018-01-04 17:12] VITALS: BP 147/82; PULSE 93; RESP 15; TEMP 36.9; O2SAT 98; BMI 24.4
--- NOTE | 2018-01-04 18:04 | ED.VISSUMM ---
- ER Visit Summary Date of Service: 01/04/18 Chief Complaint: Right ear pain History of Present Illness: The patient is a 72 F who presents with right ear pain that has gotten worse over the past several months. Patient states the pain became worse today. Patient admits to some paresthesias over the right side of her face as well. Patient describes her pain as aching. Patient states nothing makes the pain better or worse. Patient also admits to a headache. Patient also admits to some blurred vision out of her right eye. Patient states her ear pain is worse with movement of her external ear. Patient states she feels like there is congestion in her ears. Physical Examination: Vital signs are stable. Patient is afebrile. Patient is in no acute distress. The right external auditory canal is erythematous and edematous. There is pain with manipulation of the right external ear. There is no discharge or drainage. The tympanic membrane is partially occluded with cerumen. The left tympanic membrane and external auditory canal are clear. Oral mucosa is pink and moist. Neck is supple. Trachea is midline. There is no JVD noted. There is no lymphadenopathy noted. Cranial nerves II through XII are intact. There are no focal motor or sensory deficits noted. There is no tenderness over the temporal artery. The remaining physical exam is within normal limits. Emergency Department Course and Treatment: The right external auditory canal was irrigated. Patient was given a prescription for Cortisporin otic suspension. Patient was instructed to follow-up with her primary care physician in 5-7 days. Patient understood and was agreeable with the plan. All questions were answered. Disposition: Discharged home Impression: Right otitis externa This note was generated with [employer] dictation software. It may contain incorrect words, spelling, and punctuation that were not noted in review of the chart prior to signing ED Disposition - Plan for ED Patient: Disposition: Home or Assisted Living Chief Complaint: Ear Problem Diagnosis: Right otitis externa Instructions: ED Otitis Externa Prescriptions: Neomycin Coyle/Colist/Hc/Thonzon [Coly-Mycin S Otic Susp Drop] 4 drp OT 4X/DAY #10 ml Referrals: Janki Conrad MD [Primary Care Provider] -
[2018-01-04] MEDS: Carbamide Peroxide 15 ML Bottle 5 DRP OTIC (18:58)
[2018-01-04 19:57] VITALS: BP 150/93; PULSE 84; RESP 16; O2SAT 94
== END 2018-01-04 20:13 | disposition home or self-care (01) ==
LOC: ED 18:23
PROVIDERS: Emergency Provider Emergency Medicine; Family Provider Internal Medicine; PCP Internal Medicine
DX: H60.91 Unspecified otitis externa, right ear (principal); R11.0 Nausea; R51 Headache; E11.9 Type 2 diabetes mellitus without complications
CPT/HCPCS: 99283

== ENCOUNTER 2018-01-05 15:46 | Emergency (ER) | payer MEDICARE, OTHER, SELFPAY ==
[2018-01-05 15:48] VITALS: BP 150/80; PULSE 93; RESP 16; TEMP 36.6; O2SAT 98; BMI 24.0
--- NOTE | 2018-01-05 16:07 | CT_ITS ---
STUDY: CT BRAIN WITHOUT CONTRAST REASON FOR EXAM: Female, 72 years old. Headache. RADIATION DOSAGE (If Supplied By Facility): CTDIvol = ( 44.99 ) mGy, DLP = ( 829.85 ) mGycm TECHNIQUE: Transaxial CT imaging of the brain was performed without administration of intravenous contrast material. Individualized dose optimization techniques were used for this CT. COMPARISON: September 28, 2017 FINDINGS: Normal soft tissue structures. Stable calvarium. There is mild cerebral atrophy with widening of the extra-axial spaces and ventricular dilatation. Normal white matter tracts of the cerebral hemispheres. There are small punctate calcifications of the basal ganglia which are seen in the aging brain as a normal variant. Normal brainstem. There is mild cerebellar atrophy. There is no intracranial hemorrhage. There are no findings of an acute ischemic infarction. Normal visualized paranasal sinuses. There is stable opacification of the right mastoid air cells associated with increased sclerosis. CT/Brain/Head without Contrast IMPRESSION: Chronic involutional changes of the brain. No acute intracranial process. Stable opacification and increased sclerosis of the right mastoid air cells may be partially related to a history of mastoiditis. Electronically Signed: Lashaun Barajas MD at 17:08 EDT Tel , Service support ,
--- NOTE | 2018-01-05 16:07 | EKG12_ITS ---
Test Reason : WEAKNESS Blood Pressure : / mmHG Vent. Rate : 082 BPM Atrial Rate : 082 BPM P-R Int : 158 ms QRS Dur : 092 ms QT Int : 366 ms P-R-T Axes : 055 -08 052 degrees QTc Int : 427 ms Sinus rhythm with Premature atrial complexes Minimal voltage criteria for LVH, may be normal variant Borderline ECG Confirmed by DALE HEALY, JOSE ([id number]), photograph editor BOB KINSEY ([id number]) on 01/08/2018 11:11:06 AM Referred By: DEVAN Confirmed By:JOSE HUNTER MD
[2018-01-05] MEDS: hydrOXYzine PAM 25 MG Capsule PO (16:10)
--- NOTE | 2018-01-05 16:14 | ED.VISSUMM ---
- ER Visit Summary Date of Service: 01/05/18 Chief Complaint: Weakness History of Present Illness: The patient is a 72 F with multiple complaints. She was diagnosed with an otitis externa yesterday and was irrigated today she presents with weakness bilateral hand numbness blurred vision headache head and chest will popped open. She feels like she cannot breathe she has neck pain she has congestion of the nose and ears she has anxiety and also dyspnea. Which she denies is fever chills and urinary symptoms, otherwise she agrees to most review of system items. To sum it up she has a generalized feeling of not feeling well. Physical Examination: Not appear in acute distress. Moist mucous membranes, no obvious facial deformity and she has a right-sided otitis media, she has upper airway congestion swollen nasal turbinates which are erythematous. She has postnasal drip and frontal sinus pressure. She has normal posterior oropharynx, she has no lymphadenopathy. No C-spine tenderness supple neck. Regular rate and rhythm without any obvious murmurs Clear lungs bilaterally speaking in full sentences without any obvious respiratory distress Abdomen soft and nontender no guarding or rebound Moves all extremities without any difficulty or pain. Skin does not show any obvious rashes or lesions, no trauma. Alert oriented ?3 with no gross focal deficit. She has normal gait. Normal cerebellar. Normal strength. NIH stroke scale done by me was 0. Emergency Department Course and Treatment: Patient has a benign physical examination other than an upper respiratory infection however because of her age and her multiple: Planes, for her safety head CT and chest x-ray as well as blood work were done. EKG showed sinus rhythm at 82 without any significant abnormalities. The rest of her workup is unremarkable. She certainly has an upper respiratory infection and otitis media. She has some sinusitis I will treat her with azithromycin. She is discharged in stable condition. Disposition: [Discharge stable condition] Impression: Sinusitis Generalized feeling of not being well This note was generated with [employer] dictation software. It may contain incorrect words, spelling, and punctuation that were not noted in review of the chart prior to signing ED Disposition - Plan for ED Patient: Disposition: Home or Assisted Living Chief Complaint: Weakness Instructions: ED Weakness [facility] Prescriptions: Azithromycin 250 mg PO DAILY #4 tab Referrals: Janki Conrad MD [Primary Care Provider] - 3-5 Days
--- NOTE | 2018-01-05 16:15 | RAD_ITS ---
STUDY: X-RAY CHEST REASON FOR EXAM: Female, 72 years old. Weakness. TECHNIQUE: Single frontal view of the chest. COMPARISON: October 29, 2017 FINDINGS: There is no new focal consolidation. Normal size heart. Normal mediastinum and arnav. Normal visualized pulmonary arteries. There is atherosclerotic calcification of the aortic arch with tortuosity. There is a dextroscoliosis of the thoracic spine associated with degenerative changes. Normal visualized ribs, clavicles, and shoulders. There are stable metallic coils projecting over the left upper quadrant of the abdomen. RAD/Chest 1 View (Portable) IMPRESSION: No acute cardiopulmonary process. Electronically Signed: Lashaun Barajas MD at 16:38 EDT Tel , Service support ,
[2018-01-05 16:59] LABS: Absolute Lymphocyte Count 1.19 X10^3/ul (0.83-4.51); Absolute Neutrophil Count 3.4 X10^3/uL (2.0-7.7); Basophil# 0.02 X10^3/uL; Basophil% 0.4 % (0-1); Eosinophil# 0.05 X10^3/uL; Hematocrit 37.1 % (37-47); Hemoglobin 12.4 g/dl (12.0-15.0); Lymphocyte # 1.19 X10^3/ul (4.0); Lymphocyte % 22.7 % (19-41); Mean Corp Hgb Conc 33.4 g/gl (32-36); Mean Corpuscular Volume 89.6 fL (81-99); Mean Platelet Vol. 10.1 fl (6.2-12.0); Monocyte# 0.62 X10^3/uL; Monocyte% 11.8 % (0-10); Neutrophil # 3.35 X10^3/uL (2.7-7.7); Neutrophil % 63.9 % (47-70); Platelet Count 276 K/mm3 (150-450); RBC Distribution Width CV 12.3 % (11.6-14.6); RBC Distribution Width SD 40.1 fl (35.1-43.9); Red Blood Count 4.14 M/mm3 (4.2-5.4); White Blood Count 5.2 K/mm3 (4.4-11.0)
[2018-01-05 17:09] LABS: ALB/GLOB Ratio 1.2 RATIO (0.9-2.4); AST(SGOT) 11 U/L (15-37); Alanine Aminotransfer ALT/SGPT 25 U/L (13-56); Albumin, Serum 3.9 g/dL (3.2-5.0); Alkaline Phosphatase 80 U/L (45-117); Anion Gap 9 (5-15); BUN 15 mg/dL (7-18); BUN/Creat Ratio 21.3 RATIO (10-20); Calcium,Total 9.2 mg/dL (8.5-10.1); Chloride 102 mmol/L (98-107); EST Glomerular Filtration Rate 87 mL/min (>60); Est Glom Filt Rate - Afr Amer 105 mL/min (>60); Estimated Creatinine Clearance 49.45 ml/min; Globulin 3.2 g/dL (2.2-4.2); Glucose 139 mg/dL (74-106); Potassium 3.7 mmol/L (3.5-5.1); Protein, Total 7.1 g/dL (6.4-8.2); Sodium Level 135 mmol/L (136-145)
[2018-01-05 17:12] LABS: POSITIVE COUNT NO; POSITIVE DIFFERENTIAL NO; POSITIVE MORPHOLOGY NO
[2018-01-05 17:32] VITALS: BP 155/96; PULSE 79; RESP 16; O2SAT 97
[2018-01-05] MEDS: Azithromycin 250 MG Tablet 500 MG PO (17:36)
== END 2018-01-05 18:09 | disposition home or self-care (01) ==
PROVIDERS: Emergency Provider Emergency Medicine; Family Provider Internal Medicine; PCP Internal Medicine
DX: J32.9 Chronic sinusitis, unspecified (principal); F41.9 Anxiety disorder, unspecified; E11.9 Type 2 diabetes mellitus without complications; Z85.89 Personal history of malignant neoplasm of other organs and systems
CPT/HCPCS: 70450; 71045; 80053; 85025; 93005; 99284; J7030; J7040

== ENCOUNTER 2018-01-22 17:15 | Inpatient (IN) | payer MEDICARE, OTHER, SELFPAY ==
[2018-01-22 18:05] VITALS: BP 117/68; PULSE 88; RESP 20; TEMP 35.9; O2SAT 98; BMI 24.2
[2018-01-22 19:30] VITALS: RESP 18
[2018-01-22] MEDS: traZODone 50 MG Tablet PO (21:22)
[2018-01-22] MEDS: oxyCODONE 5 MG Tablet 20 MG PO (21:22)
[2018-01-22] MEDS: Montelukast 10 MG Tablet PO (21:23)
[2018-01-22] MEDS: Atorvastatin Calcium 40 MG Tablet PO (21:23)
[2018-01-22] MEDS: Gabapentin 300 MG Capsule PO (21:23)
[2018-01-22] MEDS: Amitriptyline 10 MG Tablet PO (21:23)
[2018-01-22 21:50] LABS: Bedside Glucose 279 mg/dL (70-110)
--- NOTE | 2018-01-22 21:52 | PCM.HP.STD ---
Problem List (1) Metastatic sarcoma Status: Acute (2) Coronary artery disease Status: Chronic (3) Vitamin D deficiency Status: Chronic (4) GERD (gastroesophageal reflux disease) Status: Chronic (5) Muscle spasm Status: Chronic (6) Stroke Status: Chronic (7) Right hemiplegia Status: Acute (8) Diabetes mellitus Status: Chronic (9) Hypertension Status: Chronic (10) Urinary incontinence Status: Acute History of Present Illness Date of Admission: 01/22/18 Chief Complaint: Here for rehabilitation, strengthening, prior to disposition determination. The patient is a 72 year old Female with below past medical history presented to [facility] Emergency Department 01/05/2018 with weakness. 01/05/2018 CT brain showed chronic involutional changes, mastoiditis. 01/15/2018 EKG showed sinus rhythm with premature atrial contractions, minimal left ventricular hypertrophy. Patient had multiple complaints, summed up as malaise, physical exam benign. Treated for sinusitis with Z-ger. Patient has remote history of sarcoma right parotid gland which was treated. Thoracic mass removed consistent sarcoma. 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 Patient underwent radiation treatment, suffered stroke with dense right hemiplegia. Intermittent urinary incontinence. 01/22/2018 Admit to TCU with debility, here for rehabilitation, strengthening, prior to disposition determination. Resident is [id number]-[id number], palliative care. Past Medical History Past Medical History (Chronic Problems): Chronic Problems Coronary artery disease (Chronic) Vitamin D deficiency (Chronic) GERD (gastroesophageal reflux disease) (Chronic) Muscle spasm (Chronic) Stroke (Chronic) Diabetes mellitus (Chronic) Hypertension (Chronic) Allergies cephalexin [From Keflex] Allergy (Verified 01/22/18 19:01) Rash ciprofloxacin [From Cipro] Adverse Reaction (Verified 01/04/18 17:12) Rash erythromycin base Adverse Reaction (Verified 01/04/18 17:12) Rash Penicillins Adverse Reaction (Verified 01/04/18 17:12) Rash sulfamethoxazole [From Bactrim] Adverse Reaction (Verified 01/04/18 17:12) Rash trimethoprim [From Bactrim] Adverse Reaction (Verified 01/04/18 17:12) Rash Home Medications: Ambulatory Orders Medication Instructions Recorded Calcium Carbonate/Vitamin D3 1 tab PO DAILY 12/18/17 [Caltrate 600 Plus D3 Tablet] Cholecalciferol (Vitamin D3) 2,000 unit PO DAILY 01/04/18 [Vitamin D3] Montelukast Sodium 10 mg PO QHS 01/05/18 Amitriptyline HCl [Elavil] 10 mg PO QHS 01/22/18 Aspirin E.C. [Ecotrin] 81 mg PO DAILY@0800 01/22/18 Atorvastatin Calcium 40 mg PO QHS 01/22/18 Clobetasol Propionate [Temovate 1 applic TOPICAL DAILY 01/22/18 Ointment] Dexamethasone [Decadron] 4 mg PO BIDCM 01/22/18 Gabapentin [Neurontin] 300 mg PO QHS 01/22/18 Guaifenesin [Mucinex] 1,200 mg PO BID 01/22/18 Insulin Lispro [Humalog KwikPen] 15 unit SQ TIDCM 01/22/18 Lactulose [Chronulac, Cephulac] 20 gm PO TID 01/22/18 Loratadine/Pseudo 240/10 1 tablet PO DAILY PRN PRN 01/22/18 [Claritin-D 24 Hr] Nitroglycerin 0.4 mg SL X1 PRN 01/22/18 [place]-3 Fatty Acids [Fish Oil] 500 mg PO DAILY 01/22/18 Omeprazole [Prilosec] 20 mg PO DAILY 01/22/18 Oxycodone [Oxyir] 20 mg PO Q3H PRN 01/22/18 Senna/Docusate Sodium [Senokot-S, 2 tablet PO BID 01/22/18 Sheila-Colace] Sertraline HCl [Zoloft] 25 mg PO DAILY 01/22/18 Topiramate [Topamax] 25 mg PO QHS PRN PRN 01/22/18 traZODone [Desyrel] 50 mg PO QHS 01/22/18 Surgical History: - - parotid surgery Psychiatric History: No pertinent psych hx 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 Smoking Status: Former smoker Tobacco Use: Non-smoker Alcohol: None Drugs: None - *Family History Maternal History Items: No pertinent history Paternal History Items: No pertinent history Review of Systems Constitutional: Denies: Chills, Fever, Weight Change HEENT: Denies: Head Aches, Sinus Congestion, Sinus Drainage Cardiovascular: Denies: Chest Pain, Palpitations Respiratory: Denies: Cough, Shortness of breath at rest, Sputum production Gastrointestinal: Reports: Diarrhea. Denies: Abdominal Pain, Nausea, Vomiting Genitourinary: Denies: Dysuria Musculoskeletal: Denies: Joint Pain, Joint Tenderness Skin: Denies: Rash, Wounds Neurological: Reports: - - Right sided weakness.. Denies: Focal weakness, Numbness, Tingling Psychiatric: Denies: Anxiety, Depression, Homicidal Ideations, Suicidal Ideations Hematologic/ Lymphatic: Denies: Easy Bruising, Easy Bleeding VTE Information - Inpt Only VTE Present on Admission: No VTE Mechan Device Prophylaxis: Knee High WILLY Hose VTE Pharm Prophylaxis ordered?: Yes Patient Problems: Active and Suspected Problems Metastatic sarcoma (Acute) Right hemiplegia (Acute) Urinary incontinence (Acute) - Physical Exam General: Alert, Oriented x3, Cooperative HEENT: Atraumatic, PERRLA, EOMI, Normocephalic Neck: Supple, No JVD, Negative Carotid Bruits Lungs: Clear to auscultation, Normal air movement Cardiovascular: Regular rate, No murmurs Abdomen: Bowel Sounds Present, Soft, Non Tender Extremities: No edema, Capillary Refill Less than 3 Seconds Skin: No rashes, No breakdown Musculoskeletal: No Tenderness to Palpation of Joints or Extremities Neurological: Cranial nerves II-XII grossly intact, - - Dense right hemiplegia. Psych/Mental Status: Normal Affect, Appropriate Vital Signs Temp Pulse Resp BP Pulse Ox 96.6 F L 88 20 H 117/68 98 01/22/18 18:05 01/22/18 18:05 01/22/18 18:05 01/22/18 18:05 01/22/18 18:05 Oxygen Delivery Method Room Air Weight: 68.039 kg Body Mass Index (BMI) 24.2 POC Glucose 01/22/18 21:14 POC Glucose 279 H Assessment/Plan All Active Problems Acute chest pain (Acute) Metastatic sarcoma (Acute) Right hemiplegia (Acute) Urinary incontinence (Acute) 72 year old female with below past medical history significant for metastatic sarcoma, hospitalized for stroke, dense right hemiplegia, admitted to TCU with debility, here for rehabilitation, strengthening, prior to disposition determination. Debility - PT/OT. Pain - Tylenol 1000MG Q8H PRN mild pain, Oxycodone 20MG Q3H PRN severe pain. Bowel - Miralax 17GM daily, Senna/colace 2 tablets BID, Dulcolax 10MG PO daily PRN. Pneumonia vaccination - Administer Prevnar 13 and/or Pneumovax 23 as necessary. DVT prophylaxis - Lovenox 40MG SC daily. Stroke right hemiplegia - Aspirin 81MG daily. Hyperlipidemia - Atorvastatin 40MG QHS. Calcium deficiency - Os-Jimmie 500MG daily. Vitamin D deficiency - D3 2000IU daily. Vaginitis - Temovate ointment daily PRN. Metastatic sarcoma - Decadron taper. Neuropathic pain - Gabapentin 300MG QHS. Congestion - Mucinex 1200MG BID. 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 Allergic Rhinitis - Singulair 10MG QHS. GERD - Pantoprazole 20MG daily. Depression - Rx Paroxetine 20MG QHS. Insomnia - Doxepin 25MG QHS.
--- NOTE | 2018-01-22 21:59 | HP.PCM_ITS ---
Problem List (1) Metastatic sarcoma Status: Acute (2) Coronary artery disease Status: Chronic (3) Vitamin D deficiency Status: Chronic (4) GERD (gastroesophageal reflux disease) Status: Chronic (5) Muscle spasm Status: Chronic (6) Stroke Status: Chronic (7) Right hemiplegia Status: Acute (8) Diabetes mellitus Status: Chronic (9) Hypertension Status: Chronic (10) Urinary incontinence Status: Acute History of Present Illness Date of Admission: 01/22/18 Chief Complaint: Here for rehabilitation, strengthening, prior to disposition determination. The patient is a 72 year old Female with below past medical history presented to [facility] Emergency Department 01/05/2018 with weakness. 01/05/2018 CT brain showed chronic involutional changes, mastoiditis. 01/15/2018 EKG showed sinus rhythm with premature atrial contractions, minimal left ventricular hypertrophy. Patient had multiple complaints, summed up as malaise, physical exam benign. Treated for sinusitis with Z-ger. Patient has remote history of sarcoma right parotid gland which was treated. Thoracic mass removed consistent sarcoma. 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 Patient underwent radiation treatment, suffered stroke with dense right hemiplegia. Intermittent urinary incontinence. 01/22/2018 Admit to TCU with debility, here for rehabilitation, strengthening, prior to disposition determination. Resident is DNRCC-A, palliative care. Past Medical History Past Medical History (Chronic Problems): Chronic Problems Coronary artery disease (Chronic) Vitamin D deficiency (Chronic) GERD (gastroesophageal reflux disease) (Chronic) Muscle spasm (Chronic) Stroke (Chronic) Diabetes mellitus (Chronic) Hypertension (Chronic) Allergies cephalexin [From Keflex] Allergy (Verified 01/22/18 19:01) Rash ciprofloxacin [From Cipro] Adverse Reaction (Verified 01/04/18 17:12) Rash erythromycin base Adverse Reaction (Verified 01/04/18 17:12) Rash Penicillins Adverse Reaction (Verified 01/04/18 17:12) Rash sulfamethoxazole [From Bactrim] Adverse Reaction (Verified 01/04/18 17:12) Rash trimethoprim [From Bactrim] Adverse Reaction (Verified 01/04/18 17:12) Rash Home Medications: Ambulatory Orders Medication Instructions Recorded Calcium Carbonate/Vitamin D3 1 tab PO DAILY 12/18/17 [Caltrate 600 Plus D3 Tablet] Cholecalciferol (Vitamin D3) 2,000 unit PO DAILY 01/04/18 [Vitamin D3] Montelukast Sodium 10 mg PO QHS 01/05/18 Amitriptyline HCl [Elavil] 10 mg PO QHS 01/22/18 Aspirin E.C. [Ecotrin] 81 mg PO DAILY@0800 01/22/18 Atorvastatin Calcium 40 mg PO QHS 01/22/18 Clobetasol Propionate [Temovate 1 applic TOPICAL DAILY 01/22/18 Ointment] Dexamethasone [Decadron] 4 mg PO BIDCM 01/22/18 Gabapentin [Neurontin] 300 mg PO QHS 01/22/18 Guaifenesin [Mucinex] 1,200 mg PO BID 01/22/18 Insulin Lispro [Humalog KwikPen] 15 unit SQ TIDCM 01/22/18 Lactulose [Chronulac, Cephulac] 20 gm PO TID 01/22/18 Loratadine/Pseudo 240/10 1 tablet PO DAILY PRN PRN 01/22/18 [Claritin-D 24 Hr] Nitroglycerin 0.4 mg SL X1 PRN 01/22/18 [place]-3 Fatty Acids [Fish Oil] 500 mg PO DAILY 01/22/18 Omeprazole [Prilosec] 20 mg PO DAILY 01/22/18 Oxycodone [Oxyir] 20 mg PO Q3H PRN 01/22/18 Senna/Docusate Sodium [Senokot-S, 2 tablet PO BID 01/22/18 Sheila-Colace] Sertraline HCl [Zoloft] 25 mg PO DAILY 01/22/18 Topiramate [Topamax] 25 mg PO QHS PRN PRN 01/22/18 traZODone [Desyrel] 50 mg PO QHS 01/22/18 Surgical History: - - parotid surgery Psychiatric History: No pertinent psych hx 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 Smoking Status: Former smoker Tobacco Use: Non-smoker Alcohol: None Drugs: None - *Family History Maternal History Items: No pertinent history Paternal History Items: No pertinent history Review of Systems Constitutional: Denies: Chills, Fever, Weight Change HEENT: Denies: Head Aches, Sinus Congestion, Sinus Drainage Cardiovascular: Denies: Chest Pain, Palpitations Respiratory: Denies: Cough, Shortness of breath at rest, Sputum production Gastrointestinal: Reports: Diarrhea. Denies: Abdominal Pain, Nausea, Vomiting Genitourinary: Denies: Dysuria Musculoskeletal: Denies: Joint Pain, Joint Tenderness Skin: Denies: Rash, Wounds Neurological: Reports: - - Right sided weakness.. Denies: Focal weakness, Numbness, Tingling Psychiatric: Denies: Anxiety, Depression, Homicidal Ideations, Suicidal Ideations Hematologic/ Lymphatic: Denies: Easy Bruising, Easy Bleeding VTE Information - Inpt Only VTE Present on Admission: No VTE Mechan Device Prophylaxis: Knee High WILLY Hose VTE Pharm Prophylaxis ordered?: Yes Patient Problems: Active and Suspected Problems Metastatic sarcoma (Acute) Right hemiplegia (Acute) Urinary incontinence (Acute) - Physical Exam General: Alert, Oriented x3, Cooperative HEENT: Atraumatic, PERRLA, EOMI, Normocephalic Neck: Supple, No JVD, Negative Carotid Bruits Lungs: Clear to auscultation, Normal air movement Cardiovascular: Regular rate, No murmurs Abdomen: Bowel Sounds Present, Soft, Non Tender Extremities: No edema, Capillary Refill Less than 3 Seconds Skin: No rashes, No breakdown Musculoskeletal: No Tenderness to Palpation of Joints or Extremities Neurological: Cranial nerves II-XII grossly intact, - - Dense right hemiplegia. Psych/Mental Status: Normal Affect, Appropriate Vital Signs Temp Pulse Resp BP Pulse Ox 96.6 F L 88 20 H 117/68 98 01/22/18 18:05 01/22/18 18:05 01/22/18 18:05 01/22/18 18:05 01/22/18 18:05 Oxygen Delivery Method Room Air Weight: 68.039 kg Body Mass Index (BMI) 24.2 POC Glucose 01/22/18 21:14 POC Glucose 279 H Assessment/Plan All Active Problems Acute chest pain (Acute) Metastatic sarcoma (Acute) Right hemiplegia (Acute) Urinary incontinence (Acute) 72 year old female with below past medical history significant for metastatic sarcoma, hospitalized for stroke, dense right hemiplegia, admitted to TCU with debility, here for rehabilitation, strengthening, prior to disposition determination. * Debility - PT/OT. * Pain - Tylenol 1000MG Q8H PRN mild pain, Oxycodone 20MG Q3H PRN severe pain. * Bowel - Miralax 17GM daily, Senna/colace 2 tablets BID, Dulcolax 10MG PO daily PRN. * Pneumonia vaccination - Administer Prevnar 13 and/or Pneumovax 23 as necessary. * DVT prophylaxis - Lovenox 40MG SC daily. * Stroke right hemiplegia - Aspirin 81MG daily. * Hyperlipidemia - Atorvastatin 40MG QHS. * Calcium deficiency - Os-Jimmie 500MG daily. * Vitamin D deficiency - D3 2000IU daily. * Vaginitis - Temovate ointment daily PRN. * Metastatic sarcoma - Decadron taper. * Neuropathic pain - Gabapentin 300MG QHS. * Congestion - Mucinex 1200MG BID. 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 * Allergic Rhinitis - Singulair 10MG QHS. * GERD - Pantoprazole 20MG daily. * Depression - Rx Paroxetine 20MG QHS. * Insomnia - Doxepin 25MG QHS.
[2018-01-23] MEDS: Pantoprazole Sodium 20 MG Tablet PO (05:41)
[2018-01-23] MEDS: Enoxaparin 30 MG/0.3 ML Syringe SC (05:41)
[2018-01-23 05:52] LABS: Hematocrit 37.5 % (37-47); Hemoglobin 12.5 g/dl (12.0-15.0); Mean Corp Hgb Conc 33.3 g/gl (32-36); Mean Corpuscular Hgb 30.7 pg (27.0-32.0); Mean Corpuscular Volume 92.1 fL (81-99); Platelet Count 246 K/mm3 (150-450); RBC Distribution Width CV 12.5 % (11.6-14.6); RBC Distribution Width SD 40.7 fl (35.1-43.9); Red Blood Count 4.07 M/mm3 (4.2-5.4); White Blood Count 7.9 K/mm3 (4.4-11.0)
[2018-01-23 05:56] LABS: Differential Indicated MANUAL DIFF; POSITIVE COUNT YES; POSITIVE DIFFERENTIAL YES; POSITIVE MORPHOLOGY YES
[2018-01-23 06:12] LABS: Anion Gap 8 (5-15); BUN 30 mg/dL (7-18); BUN/Creat Ratio 54.9 RATIO (10-20); Calcium,Total 8.2 mg/dL (8.5-10.1); Chloride 102 mmol/L (98-107); Creatinine, Serum 0.55 mg/dL (0.55-1.02); EST Glomerular Filtration Rate 116 mL/min (>60); Est Glom Filt Rate - Afr Amer 141 mL/min (>60); Glucose 132 mg/dL (74-106); Potassium 3.9 mmol/L (3.5-5.1); Sodium Level 137 mmol/L (136-145)
[2018-01-23 06:18] LABS: Lymphocyte 7 % (19-41); Monocyte 8 % (0-10); Neutrophil-Segmented 85 % (47-70); Total Cells Counted 100 (MANUAL DIFF)
[2018-01-23 06:21] LABS: Absolute Lymphocyte Count 0.55 X10^3/ul (0.83-4.51); Absolute Neutrophil Count 6.7 X10^3/uL (2.0-7.7)
[2018-01-23 07:15] LABS: Bedside Glucose 145 mg/dL (70-110)
[2018-01-23] MEDS: Aspirin E.C. 81 MG Tablet PO (10:02)
[2018-01-23] MEDS: Insulin Lispro 100 UNIT/ML INSULN.PEN 15 UNIT SC ×3 (10:02→17:37)
[2018-01-23] MEDS: oxyCODONE 5 MG Tablet 20 MG PO ×2 (10:05→20:53)
[2018-01-23] MEDS: Glucerna Shake 120 ML LIQUID PO ×3 (12:04→20:43)
[2018-01-23] MEDS: Tuberculin,Purif.prot.deriv. 50 TU/ML Vial 5 ML ID (13:45)
[2018-01-23 14:32] LABS: Pathologist Review Reviewed
--- NOTE | 2018-01-23 16:06 | CASEMGMT ---
Reviewed and approved attached social work student documentation. SIAURA HartW, TRAVEL INSURANCE AGENT
[2018-01-23] MEDS: guaiFENesin 1,200 MG Tablet 1200 MG PO (17:35)
[2018-01-23] MEDS: Senna/Docusate Sodium 1 Tablet 2 TABLET PO (17:35)
[2018-01-23] MEDS: Menthol/Lanolin/Calamine/Znox 113 GM Tube 1 APPLIC TOPICAL ×2 (17:38→20:58)
[2018-01-23 17:41] LABS: Bedside Glucose 350 mg/dL (70-110)
[2018-01-23] MEDS: Gabapentin 300 MG Capsule PO (20:44)
[2018-01-23] MEDS: Atorvastatin Calcium 40 MG Tablet PO (20:44)
[2018-01-23] MEDS: Montelukast 10 MG Tablet PO (20:45)
[2018-01-23] MEDS: Doxepin Hcl 25 MG Capsule PO (20:45)
[2018-01-23 22:51] LABS: Bedside Glucose 336 mg/dL (70-110)
[2018-01-24] MEDS: Glucerna Shake 120 ML LIQUID PO ×4 (05:53→20:24)
[2018-01-24] MEDS: oxyCODONE 5 MG Tablet 20 MG PO ×3 (05:53→20:34)
[2018-01-24] MEDS: guaiFENesin 1,200 MG Tablet 1200 MG PO ×2 (05:54→17:40)
[2018-01-24] MEDS: Enoxaparin 30 MG/0.3 ML Syringe SC (05:54)
[2018-01-24] MEDS: Pantoprazole Sodium 20 MG Tablet PO (05:54)
[2018-01-24] MEDS: Senna/Docusate Sodium 1 Tablet 2 TABLET PO ×2 (05:54→17:40)
[2018-01-24] MEDS: Nystatin Powder 15gm Bottle 1 APPLIC TOPICAL ×2 (06:32→20:24)
[2018-01-24] MEDS: Menthol/Lanolin/Calamine/Znox 113 GM Tube 1 APPLIC TOPICAL ×3 (06:32→20:24)
[2018-01-24 06:36] LABS: Bedside Glucose 170 mg/dL (70-110)
[2018-01-24] MEDS: Aspirin E.C. 81 MG Tablet PO (08:47)
[2018-01-24] MEDS: Insulin Lispro 100 UNIT/ML INSULN.PEN 10 UNIT SC ×2 (08:48→11:54)
[2018-01-24 11:56] LABS: Bedside Glucose 236 mg/dL (70-110)
[2018-01-24 16:00] VITALS: BP 119/61; PULSE 81; RESP 16; TEMP 36.1; O2SAT 98
[2018-01-24 17:01] LABS: Bedside Glucose 296 mg/dL (70-110)
[2018-01-24] MEDS: Insulin Lispro 100 UNIT/ML INSULN.PEN 13 UNIT SC (17:42)
[2018-01-24] MEDS: Atorvastatin Calcium 40 MG Tablet PO (20:25)
[2018-01-24] MEDS: Montelukast 10 MG Tablet PO (20:27)
[2018-01-24] MEDS: Gabapentin 300 MG Capsule PO (20:27)
[2018-01-24] MEDS: Doxepin Hcl 25 MG Capsule PO (20:27)
[2018-01-24 20:35] VITALS: PULSE 84; O2SAT 96
[2018-01-24 21:25] LABS: Bedside Glucose 256 mg/dL (70-110)
[2018-01-25] MEDS: Menthol/Lanolin/Calamine/Znox 113 GM Tube 1 APPLIC TOPICAL ×3 (05:42→21:21)
[2018-01-25] MEDS: Glucerna Shake 120 ML LIQUID PO ×4 (05:43→21:21)
[2018-01-25] MEDS: guaiFENesin 1,200 MG Tablet 1200 MG PO ×2 (05:43→17:14)
[2018-01-25] MEDS: Nystatin Powder 15gm Bottle 1 APPLIC TOPICAL ×2 (05:43→17:18)
[2018-01-25] MEDS: Enoxaparin 30 MG/0.3 ML Syringe SC (05:43)
[2018-01-25] MEDS: Senna/Docusate Sodium 1 Tablet 2 TABLET PO ×2 (05:43→17:11)
[2018-01-25] MEDS: Pantoprazole Sodium 20 MG Tablet PO (05:43)
[2018-01-25] MEDS: oxyCODONE 5 MG Tablet 20 MG PO ×2 (05:46→21:34)
[2018-01-25 06:21] LABS: Bedside Glucose 150 mg/dL (70-110)
[2018-01-25] MEDS: Insulin Lispro 100 UNIT/ML INSULN.PEN 13 UNIT SC (07:56)
[2018-01-25] MEDS: Aspirin E.C. 81 MG Tablet PO (07:56)
[2018-01-25 11:55] LABS: Bedside Glucose 266 mg/dL (70-110)
[2018-01-25] MEDS: Insulin Lispro 100 UNIT/ML INSULN.PEN 10 UNIT SC ×2 (12:35→17:12)
[2018-01-25 16:00] VITALS: BP 128/75; PULSE 93; RESP 16; TEMP 37.1; O2SAT 95
[2018-01-25 17:05] LABS: Bedside Glucose 178 mg/dL (70-110)
[2018-01-25 17:24] LABS: Bacteria 0 SEEN /hpf (None Seen); Mucous, Urine 0 SEEN /hpf (<or=2+); Red Blood Cells-Urine 0 SEEN /hpf (0-5); Squamous Epithelial Cells - UA 0 SEEN /hpf (5-10); White Blood Cells 0 SEEN /hpf (0-5)
[2018-01-25 17:30] LABS: Color, Urine Yellow (Yellow); Glucose, Dipstick 250 mg/dl (Normal); Ketone-Dipstick Negative (Negative); Leukocyte Esterase-Dipstick Negative /ul (Negative); Nitrite-Dipstick Negative (Negative); Occult Blood-Urine Negative /ul (Negative); Protein-Dipstick Negative (Negative); Specific Gravity, Urine 1.005 (1.002-1.030); Urine Bilirubin Dipstick Negative (Negative); Urine Clarity Clear (Clear); Urine Urobilinogen Normal (Normal); Urine pH 6.5 (5.0 - 8.0)
[2018-01-25] MEDS: Doxepin Hcl 25 MG Capsule PO (21:22)
[2018-01-25] MEDS: Atorvastatin Calcium 40 MG Tablet PO (21:22)
[2018-01-25] MEDS: Gabapentin 300 MG Capsule PO (21:22)
[2018-01-25] MEDS: Montelukast 10 MG Tablet PO (21:22)
[2018-01-25 21:25] LABS: Bedside Glucose 204 mg/dL (70-110)
[2018-01-25 21:36] VITALS: PULSE 76; O2SAT 99
[2018-01-26 06:51] LABS: Bedside Glucose 135 mg/dL (70-110)
[2018-01-26] MEDS: Menthol/Lanolin/Calamine/Znox 113 GM Tube 1 APPLIC TOPICAL ×3 (06:55→21:21)
[2018-01-26] MEDS: Glucerna Shake 120 ML LIQUID PO ×3 (06:56→21:19)
[2018-01-26] MEDS: Senna/Docusate Sodium 1 Tablet 2 TABLET PO ×2 (06:57→16:58)
[2018-01-26] MEDS: Nystatin Powder 15gm Bottle 1 APPLIC TOPICAL ×2 (06:57→16:57)
[2018-01-26] MEDS: oxyCODONE 5 MG Tablet 20 MG PO ×2 (06:57→12:47)
[2018-01-26] MEDS: Pantoprazole Sodium 20 MG Tablet PO (06:57)
[2018-01-26] MEDS: Enoxaparin 30 MG/0.3 ML Syringe SC (06:57)
[2018-01-26] MEDS: guaiFENesin 1,200 MG Tablet 1200 MG PO ×2 (06:57→16:57)
[2018-01-26] MEDS: Insulin Lispro 100 UNIT/ML INSULN.PEN 10 UNIT SC ×3 (08:54→16:56)
[2018-01-26] MEDS: Aspirin E.C. 81 MG Tablet PO (08:55)
[2018-01-26 11:15] LABS: Bedside Glucose 250 mg/dL (70-110)
--- NOTE | 2018-01-26 12:40 | RAD_ITS ---
STUDY: X-RAY - ABDOMEN/PELVIS REASON FOR EXAM: Female, 72 years old. Left upper quadrant abdominal pain TECHNIQUE: Two AP supine views of the abdomen and pelvis. COMPARISON: None. FINDINGS: Normal visualized lung bases. There is an abundance of fecal material throughout the colon. There is no demonstrated free abdominal air. Vascular coils in the left upper quadrant region. Prior ventral wall abdominal hernia repair mesh The visualized liver, spleen and kidneys are grossly normal in size and morphology. Normal soft tissue structures. Normal visualized osseous structures. RAD/Abdomen Single View (Portable) IMPRESSION: Abundant constipation Electronically Signed: Fausto Ramirez DO at 13:42 EST Tel , Service support ,
[2018-01-26] MEDS: Magnesium Citrate 300 ML PO (15:04)
[2018-01-26 16:00] VITALS: BP 124/66; PULSE 84; RESP 18; TEMP 35.8; O2SAT 96
[2018-01-26] MEDS: Ondansetron ODT 4 MG Tablet PO (16:56)
--- NOTE | 2018-01-26 18:06 | NURSING ---
Addendum entered by Elza Johnson 01/26/18 18:35: dr craig notified of pharmacy does not carry norflex, new order to give baclofen now. Original Note: c/o stiff neck and severe pain when she leans her head back. she would like to see you. Dr Craig aware, new order appt with dr brand and start toradol, diclofen, norflex and baclofen.
[2018-01-26] MEDS: Ketorolac 60 MG/2 ML Vial IM (18:15)
[2018-01-26] MEDS: Baclofen 10 MG Tablet PO ×2 (18:36→21:19)
[2018-01-26] MEDS: Gabapentin 300 MG Capsule PO (21:19)
[2018-01-26] MEDS: Atorvastatin Calcium 40 MG Tablet PO (21:19)
[2018-01-26] MEDS: Montelukast 10 MG Tablet PO (21:19)
[2018-01-26] MEDS: Doxepin Hcl 25 MG Capsule PO (21:19)
[2018-01-27] MEDS: oxyCODONE 5 MG Tablet 20 MG PO ×3 (03:23→20:11)
[2018-01-27] MEDS: Menthol/Lanolin/Calamine/Znox 113 GM Tube 1 APPLIC TOPICAL ×3 (03:28→21:56)
[2018-01-27] MEDS: Nystatin Powder 15gm Bottle 1 APPLIC TOPICAL ×2 (03:29→18:21)
[2018-01-27] MEDS: Glucerna Shake 120 ML LIQUID PO ×4 (06:14→21:55)
[2018-01-27] MEDS: Polyethylene Glycol 3350 17 GM PACKET PO (06:14)
[2018-01-27] MEDS: Pantoprazole Sodium 20 MG Tablet PO (06:14)
[2018-01-27] MEDS: guaiFENesin 1,200 MG Tablet 1200 MG PO ×2 (06:14→18:20)
[2018-01-27] MEDS: Enoxaparin 30 MG/0.3 ML Syringe SC (06:14)
[2018-01-27] MEDS: Senna/Docusate Sodium 1 Tablet 2 TABLET PO ×2 (06:14→18:20)
[2018-01-27 06:56] LABS: Bedside Glucose 112 mg/dL (70-110)
[2018-01-27] MEDS: Aspirin E.C. 81 MG Tablet PO (09:02)
[2018-01-27 11:16] LABS: Bedside Glucose 221 mg/dL (70-110)
--- NOTE | 2018-01-27 13:31 | NURSING ---
Soap suds enema given with lg soft formed stool. daughters at bedside. Resting in bed, call light in reach.
--- NOTE | 2018-01-27 14:53 | PCM.PN.RX ---
<Senthil Tidwellip D - Last Filed: 01/27/18 14:53> Progress Note - Pharmacy Subjective: TCU Admission Objective: Allergies cephalexin [From Keflex] Allergy (Verified 01/22/18 19:01) Rash ciprofloxacin [From Cipro] Adverse Reaction (Verified 01/04/18 17:12) Rash erythromycin base Adverse Reaction (Verified 01/04/18 17:12) Rash Penicillins Adverse Reaction (Verified 01/04/18 17:12) Rash sulfamethoxazole [From Bactrim] Adverse Reaction (Verified 01/04/18 17:12) Rash trimethoprim [From Bactrim] Adverse Reaction (Verified 01/04/18 17:12) Rash Current Medications Generic Name Dose Route Start Last Admin Trade Name Freq PRN Reason Stop Dose Admin Aspirin 81 mg 01/23/18 08:00 01/27/18 09:02 Ecotrin PO 81 mg DAILY@0800 [facility] Administration Atorvastatin Calcium 40 mg 01/22/18 22:00 01/26/18 21:19 Lipitor PO 40 mg QHS [facility] Administration Baclofen 10 mg 01/26/18 22:00 01/26/18 21:19 Lioresal PO 02/02/18 22:01 10 mg QHS [facility] Administration Bisacodyl 10 mg 01/22/18 22:19 Dulcolax PO DAILY PRN Constipation Calamine/Phenol 1 applic 01/23/18 14:00 01/27/18 03:28 Calmoseptine Ointment TOPICAL 1 applicatio TID IMTIAZ Administration Protocol Clobetasol Propionate 1 applic 01/22/18 18:45 Temovate Ointment TOPICAL DAILY PRN PRN ITCHING Protocol Dexamethasone 4 mg 01/26/18 08:00 01/27/18 09:01 Decadron PO 01/28/18 10:00 4 mg DAILY@0800 [facility] Administration Diclofenac Sodium 50 mg 01/27/18 08:00 01/27/18 09:01 Voltaren PO 02/03/18 08:01 50 mg BIDCM IMT[facility] Administration Doxepin HCl 25 mg 01/23/18 22:00 01/26/18 21:19 Sinequan PO 25 mg QHS [facility] Administration Enoxaparin Sodium 30 mg 01/23/18 06:00 01/27/18 06:14 Lovenox SC 30 mg DAILY@0600 [facility] Administration Gabapentin 300 mg 01/22/18 22:00 01/26/18 21:19 Neurontin PO 300 mg QHS [facility] Administration Guaifenesin 1,200 mg 01/23/18 06:00 01/27/18 06:14 Mucinex PO 1,200 mg BID IMTIAZ Administration Insulin Glargine 10 units 01/27/18 18:00 Lantus (Bkc) SC BID IMTIAZ Montelukast Sodium 10 mg 01/22/18 22:00 01/26/18 21:19 Singulair PO 10 mg QHS [facility] Administration Nitroglycerin 0.4 mg 01/22/18 18:47 Nitrostat SUBLINGUAL X1 PRN CARDIAC/CHEST PAIN Nutritional Formula (Lactose Free) 120 ml 01/23/18 12:00 01/27/18 11:41 Glucerna Shake PO 120 ml 4X/DAY IMTIAZ Administration Nystatin 1 applic 01/23/18 18:00 01/27/18 03:29 Mycostatin Powder TOPICAL 1 applicatio BID IMTIAZ Administration Protocol Ondansetron HCl 4 mg 01/26/18 08:09 01/26/18 16:56 Zofran Odt PO 4 mg Q6H PRN PRN Administration NAUSEA Oxycodone HCl 20 mg 01/22/18 22:19 01/27/18 11:43 Oxyir PO 20 mg Q3H PRN PRN Administration SEVERE PAIN (6-10/10) Pantoprazole Sodium 20 mg 01/23/18 06:00 01/27/18 06:14 Protonix PO 20 mg DAILY IMTIAZ Administration Paroxetine HCl 20 mg 01/23/18 22:00 01/26/18 21:19 Paxil PO 20 mg QHS I[facility] Administration Polyethylene Glycol 17 gm 01/23/18 06:00 01/27/18 06:14 Miralax PO 17 gm DAILY IMTIAZ Administration Senna/Docusate Sodium 2 tablet 01/23/18 06:00 01/27/18 06:14 Senokot-S, Sheila-Colace PO 2 tablet BID [facility] Administration Tuberculin PPD 5 tu 01/30/18 10:00 Tubersol, Aplisol, Ppd ID 01/30/18 10:01 X1 ONE Problem List Metastatic sarcoma (Acute) Coronary artery disease (Chronic) Vitamin D deficiency (Chronic) GERD (gastroesophageal reflux disease) (Chronic) Muscle spasm (Chronic) Stroke (Chronic) Right hemiplegia (Acute) Diabetes mellitus (Chronic) Hypertension (Chronic) Urinary incontinence (Acute) Vital Signs Temp Pulse Resp BP Pulse Ox 96.4 F L 84 18 124/66 H 96 01/26/18 16:00 01/26/18 16:00 01/26/18 16:00 01/26/18 16:00 01/26/18 16:00 Oxygen Delivery Method Room Air Weight: 69.513 kg Body Mass Index (BMI) 24.2 Sodium 137 mmol/L (136-145) 01/23/18 05:25 Potassium 3.9 mmol/L (3.5-5.1) 01/23/18 05:25 Chloride 102 mmol/L (98-107) 01/23/18 05:25 Carbon Dioxide 27.0 mmol/L (21.0-32.0) 01/23/18 05:25 Anion Gap 8 (5-15) 01/23/18 05:25 BUN 30 mg/dL (7-18) H 01/23/18 05:25 Creatinine 0.55 mg/dL (0.55-1.02) 01/23/18 05:25 Est GFR (MDRD) Af Amer 141 mL/min (>60) 01/23/18 05:25 Est GFR (MDRD) Non-Af 116 mL/min (>60) 01/23/18 05:25 BUN/Creatinine Ratio 54.9 RATIO (10-20) H 01/23/18 05:25 Glucose 132 mg/dL (74-106) H 01/23/18 05:25 Assessment/Plan: 1) Pain Oxycodone for severe pain, gabapentin at HS, short term baclofen, dexamethasone, and diclofenac. Continue to monitor daily pain scores, prn medication use. 2) Hx Stroke ASA, atorvastatin. Continue to monitor lipids, s/s stroke. 3) DM (steroid induced) Insulin glargine twice daily. Continue to monitor BGT, s/s hyper/hypoglycemia. 4) GI Pantoprazole daily, ondansetron as needed. Continue to monitor prn medication use, s/s GI distress. 5) DVT PPx Enoxaparin daily. Continue to monitor s/s bleeding/clot. 6) Pulm Guaifenesin, montelukast. Continue to monitor for congestion, shortness of breath. Psychotropic Medications: 7) Depression/Insomnia Paroxetine daily, doxepin at HS. Continue to monitor for depression, s/s serotonin syndrome with dual serotonergic drug use. Unnecessary Medications: None Bowel Regimen: 8) Senna/s, PEG, prn bisacodyl. Continue to monitor prn medication use, for constipation/diarrhea. Date of Note:: 01/27/18 - Provider Comments Provider responsibility: Provider responsible to enter orders to implement recommendations <Lukas Craig Chi - Last Filed: 01/27/18 17:43> Progress Note - Pharmacy Subjective: [] Objective: Allergies cephalexin [From Keflex] Allergy (Verified 01/22/18 19:01) Rash ciprofloxacin [From Cipro] Adverse Reaction (Verified 01/04/18 17:12) Rash erythromycin base Adverse Reaction (Verified 01/04/18 17:12) Rash Penicillins Adverse Reaction (Verified 01/04/18 17:12) Rash sulfamethoxazole [From Bactrim] Adverse Reaction (Verified 01/04/18 17:12) Rash trimethoprim [From Bactrim] Adverse Reaction (Verified 01/04/18 17:12) Rash Current Medications Generic Name Dose Route Start Last Admin Trade Name Freq PRN Reason Stop Dose Admin Aspirin 81 mg 01/23/18 08:00 01/27/18 09:02 Ecotrin PO 81 mg DAILY@0800 [facility] Administration Atorvastatin Calcium 40 mg 01/22/18 22:00 01/26/18 21:19 Lipitor PO 40 mg QHS [facility] Administration Baclofen 10 mg 01/26/18 22:00 01/26/18 21:19 Lioresal PO 02/02/18 22:01 10 mg QHS I[facility] Administration Bisacodyl 10 mg 01/22/18 22:19 Dulcolax PO DAILY PRN Constipation Calamine/Phenol 1 applic 01/23/18 14:00 01/27/18 15:55 Calmoseptine Ointment TOPICAL 1 applicatio TID IMTIAZ Administration Protocol Clobetasol Propionate 1 applic 01/22/18 18:45 Temovate Ointment TOPICAL DAILY PRN PRN ITCHING Protocol Dexamethasone 4 mg 01/26/18 08:00 01/27/18 09:01 Decadron PO 01/28/18 10:00 4 mg DAILY@0800 [facility] Administration Diclofenac Sodium 50 mg 01/27/18 08:00 01/27/18 09:01 Voltaren PO 02/03/18 08:01 50 mg BIDCM IMT[facility] Administration Doxepin HCl 25 mg 01/23/18 22:00 01/26/18 21:19 Sinequan PO 25 mg QHS [facility] Administration Enoxaparin Sodium 30 mg 01/23/18 06:00 01/27/18 06:14 Lovenox SC 30 mg DAILY@0600 [facility] Administration Gabapentin 300 mg 01/22/18 22:00 01/26/18 21:19 Neurontin PO 300 mg QHS [facility] Administration Guaifenesin 1,200 mg 01/23/18 06:00 01/27/18 06:14 Mucinex PO 1,200 mg BID IMTIAZ Administration Insulin Glargine 10 units 01/27/18 18:00 Lantus (Bkc) SC BID IMTIAZ Montelukast Sodium 10 mg 01/22/18 22:00 01/26/18 21:19 Singulair PO 10 mg QHS [facility] Administration Nitroglycerin 0.4 mg 01/22/18 18:47 Nitrostat SUBLINGUAL X1 PRN CARDIAC/CHEST PAIN Nutritional Formula (Lactose Free) 120 ml 01/23/18 12:00 01/27/18 11:41 Glucerna Shake PO 120 ml 4X/DAY [facility] Administration Nystatin 1 applic 01/23/18 18:00 01/27/18 03:29 Mycostatin Powder TOPICAL 1 applicatio BID IMTIAZ Administration Protocol Ondansetron HCl 4 mg 01/26/18 08:09 01/26/18 16:56 Zofran Odt PO 4 mg Q6H PRN PRN Administration NAUSEA Oxycodone HCl 20 mg 01/22/18 22:19 01/27/18 11:43 Oxyir PO 20 mg Q3H PRN PRN Administration SEVERE PAIN (6-10/10) Pantoprazole Sodium 20 mg 01/23/18 06:00 01/27/18 06:14 Protonix PO 20 mg DAILY IMT[facility] Administration Paroxetine HCl 20 mg 01/23/18 22:00 01/26/18 21:19 Paxil PO 20 mg QHS [facility] Administration Polyethylene Glycol 17 gm 01/23/18 06:00 01/27/18 06:14 Miralax PO 17 gm DAILY [facility] Administration Senna/Docusate Sodium 2 tablet 01/23/18 06:00 01/27/18 06:14 Senokot-S, Sheila-Colace PO 2 tablet BID [facility] Administration Tuberculin PPD 5 tu 01/30/18 10:00 Tubersol, Aplisol, Ppd ID 01/30/18 10:01 X1 ONE Problem List Metastatic sarcoma (Acute) Coronary artery disease (Chronic) Vitamin D deficiency (Chronic) GERD (gastroesophageal reflux disease) (Chronic) Muscle spasm (Chronic) Stroke (Chronic) Right hemiplegia (Acute) Diabetes mellitus (Chronic) Hypertension (Chronic) Urinary incontinence (Acute) Vital Signs Temp Pulse Resp BP Pulse Ox 98.6 F 81 18 128/75 H 95 01/27/18 16:00 01/27/18 16:00 01/27/18 16:00 01/27/18 16:00 01/27/18 16:00 Oxygen Delivery Method Room Air Weight: 69.513 kg Body Mass Index (BMI) 24.2 Sodium 137 mmol/L (136-145) 01/23/18 05:25 Potassium 3.9 mmol/L (3.5-5.1) 01/23/18 05:25 Chloride 102 mmol/L (98-107) 01/23/18 05:25 Carbon Dioxide 27.0 mmol/L (21.0-32.0) 01/23/18 05:25 Anion Gap 8 (5-15) 01/23/18 05:25 BUN 30 mg/dL (7-18) H 01/23/18 05:25 Creatinine 0.55 mg/dL (0.55-1.02) 01/23/18 05:25 Est GFR (MDRD) Af Amer 141 mL/min (>60) 01/23/18 05:25 Est GFR (MDRD) Non-Af 116 mL/min (>60) 01/23/18 05:25 BUN/Creatinine Ratio 54.9 RATIO (10-20) H 01/23/18 05:25 Glucose 132 mg/dL (74-106) H 01/23/18 05:25 Assessment/Plan: Psychotropic Medications: Unnecessary Medications: Bowel Regimen: - Provider Comments Provider responsibility: Provider responsible to enter orders to implement recommendations Provider Comments to Recommendations by Pharmacy: Agree
--- NOTE | 2018-01-27 15:01 | PHA.CONS_ITS ---
<Senthil Tidwellip D - Last Filed: 01/27/18 14:53> Progress Note - Pharmacy Subjective: TCU Admission Objective: Allergies cephalexin [From Keflex] Allergy (Verified 01/22/18 19:01) Rash ciprofloxacin [From Cipro] Adverse Reaction (Verified 01/04/18 17:12) Rash erythromycin base Adverse Reaction (Verified 01/04/18 17:12) Rash Penicillins Adverse Reaction (Verified 01/04/18 17:12) Rash sulfamethoxazole [From Bactrim] Adverse Reaction (Verified 01/04/18 17:12) Rash trimethoprim [From Bactrim] Adverse Reaction (Verified 01/04/18 17:12) Rash Current Medications Generic Name Dose Route Start Last Admin Trade Name Freq PRN Reason Stop Dose Admin Aspirin 81 mg 01/23/18 08:00 01/27/18 09:02 Ecotrin PO 81 mg DAILY@0800 [facility] Administration Atorvastatin Calcium 40 mg 01/22/18 22:00 01/26/18 21:19 Lipitor PO 40 mg QHS [facility] Administration Baclofen 10 mg 01/26/18 22:00 01/26/18 21:19 Lioresal PO 02/02/18 22:01 10 mg QHS [facility] Administration Bisacodyl 10 mg 01/22/18 22:19 Dulcolax PO DAILY PRN Constipation Calamine/Phenol 1 applic 01/23/18 14:00 01/27/18 03:28 Calmoseptine Ointment TOPICAL 1 applicatio TID IMTIAZ Administration Protocol Clobetasol Propionate 1 applic 01/22/18 18:45 Temovate Ointment TOPICAL DAILY PRN PRN ITCHING Protocol Dexamethasone 4 mg 01/26/18 08:00 01/27/18 09:01 Decadron PO 01/28/18 10:00 4 mg DAILY@0800 [facility] Administration Diclofenac Sodium 50 mg 01/27/18 08:00 01/27/18 09:01 Voltaren PO 02/03/18 08:01 50 mg BIDCM I[facility] Administration Doxepin HCl 25 mg 01/23/18 22:00 01/26/18 21:19 Sinequan PO 25 mg QHS [facility] Administration Enoxaparin Sodium 30 mg 01/23/18 06:00 01/27/18 06:14 Lovenox SC 30 mg DAILY@0600 [facility] Administration Gabapentin 300 mg 01/22/18 22:00 01/26/18 21:19 Neurontin PO 300 mg QHS [facility] Administration Guaifenesin 1,200 mg 01/23/18 06:00 01/27/18 06:14 Mucinex PO 1,200 mg BID IMTIAZ Administration Insulin Glargine 10 units 01/27/18 18:00 Lantus (Bkc) SC BID IMTIAZ Montelukast Sodium 10 mg 01/22/18 22:00 01/26/18 21:19 Singulair PO 10 mg QHS [facility] Administration Nitroglycerin 0.4 mg 01/22/18 18:47 Nitrostat SUBLINGUAL X1 PRN CARDIAC/CHEST PAIN Nutritional Formula (Lactose Free) 120 ml 01/23/18 12:00 01/27/18 11:41 Glucerna Shake PO 120 ml 4X/DAY IMT[facility] Administration Nystatin 1 applic 01/23/18 18:00 01/27/18 03:29 Mycostatin Powder TOPICAL 1 applicatio BID IMTIAZ Administration Protocol Ondansetron HCl 4 mg 01/26/18 08:09 01/26/18 16:56 Zofran Odt PO 4 mg Q6H PRN PRN Administration NAUSEA Oxycodone HCl 20 mg 01/22/18 22:19 01/27/18 11:43 Oxyir PO 20 mg Q3H PRN PRN Administration SEVERE PAIN (6-10/10) Pantoprazole Sodium 20 mg 01/23/18 06:00 01/27/18 06:14 Protonix PO 20 mg DAILY IMTIAZ Administration Paroxetine HCl 20 mg 01/23/18 22:00 01/26/18 21:19 Paxil PO 20 mg QHS [facility] Administration Polyethylene Glycol 17 gm 01/23/18 06:00 01/27/18 06:14 Miralax PO 17 gm DAILY [facility] Administration Senna/Docusate Sodium 2 tablet 01/23/18 06:00 01/27/18 06:14 Senokot-S, Sheila-Colace PO 2 tablet BID [facility] Administration Tuberculin PPD 5 tu 01/30/18 10:00 Tubersol, Aplisol, Ppd ID 01/30/18 10:01 X1 ONE Problem List Metastatic sarcoma (Acute) Coronary artery disease (Chronic) Vitamin D deficiency (Chronic) GERD (gastroesophageal reflux disease) (Chronic) Muscle spasm (Chronic) Stroke (Chronic) Right hemiplegia (Acute) Diabetes mellitus (Chronic) Hypertension (Chronic) Urinary incontinence (Acute) Vital Signs Temp Pulse Resp BP Pulse Ox 96.4 F L 84 18 124/66 H 96 01/26/18 16:00 01/26/18 16:00 01/26/18 16:00 01/26/18 16:00 01/26/18 16:00 Oxygen Delivery Method Room Air Weight: 69.513 kg Body Mass Index (BMI) 24.2 Sodium 137 mmol/L (136-145) 01/23/18 05:25 Potassium 3.9 mmol/L (3.5-5.1) 01/23/18 05:25 Chloride 102 mmol/L (98-107) 01/23/18 05:25 Carbon Dioxide 27.0 mmol/L (21.0-32.0) 01/23/18 05:25 Anion Gap 8 (5-15) 01/23/18 05:25 BUN 30 mg/dL (7-18) H 01/23/18 05:25 Creatinine 0.55 mg/dL (0.55-1.02) 01/23/18 05:25 Est GFR (MDRD) Af Amer 141 mL/min (>60) 01/23/18 05:25 Est GFR (MDRD) Non-Af 116 mL/min (>60) 01/23/18 05:25 BUN/Creatinine Ratio 54.9 RATIO (10-20) H 01/23/18 05:25 Glucose 132 mg/dL (74-106) H 01/23/18 05:25 Assessment/Plan: 1) Pain Oxycodone for severe pain, gabapentin at HS, short term baclofen, dexamethasone, and diclofenac. Continue to monitor daily pain scores, prn medication use. 2) Hx Stroke ASA, atorvastatin. Continue to monitor lipids, s/s stroke. 3) DM (steroid induced) Insulin glargine twice daily. Continue to monitor BGT, s/s hyper/hypoglycemia. 4) GI Pantoprazole daily, ondansetron as needed. Continue to monitor prn medication use, s/s GI distress. 5) DVT PPx Enoxaparin daily. Continue to monitor s/s bleeding/clot. 6) Pulm Guaifenesin, montelukast. Continue to monitor for congestion, shortness of breath. Psychotropic Medications: 7) Depression/Insomnia Paroxetine daily, doxepin at HS. Continue to monitor for depression, s/s serotonin syndrome with dual serotonergic drug use. Unnecessary Medications: None Bowel Regimen: 8) Senna/s, PEG, prn bisacodyl. Continue to monitor prn medication use, for constipation/diarrhea. Date of Note:: 01/27/18 - Provider Comments Provider responsibility: Provider responsible to enter orders to implement recommendations <Lukas Craig Chi - Last Filed: 01/27/18 17:43> Progress Note - Pharmacy Subjective: [] Objective: Allergies cephalexin [From Keflex] Allergy (Verified 01/22/18 19:01) Rash ciprofloxacin [From Cipro] Adverse Reaction (Verified 01/04/18 17:12) Rash erythromycin base Adverse Reaction (Verified 01/04/18 17:12) Rash Penicillins Adverse Reaction (Verified 01/04/18 17:12) Rash sulfamethoxazole [From Bactrim] Adverse Reaction (Verified 01/04/18 17:12) Rash trimethoprim [From Bactrim] Adverse Reaction (Verified 01/04/18 17:12) Rash Current Medications Generic Name Dose Route Start Last Admin Trade Name Freq PRN Reason Stop Dose Admin Aspirin 81 mg 01/23/18 08:00 01/27/18 09:02 Ecotrin PO 81 mg DAILY@0800 [facility] Administration Atorvastatin Calcium 40 mg 01/22/18 22:00 01/26/18 21:19 Lipitor PO 40 mg QHS [facility] Administration Baclofen 10 mg 01/26/18 22:00 01/26/18 21:19 Lioresal PO 02/02/18 22:01 10 mg QHS [facility] Administration Bisacodyl 10 mg 01/22/18 22:19 Dulcolax PO DAILY PRN Constipation Calamine/Phenol 1 applic 01/23/18 14:00 01/27/18 15:55 Calmoseptine Ointment TOPICAL 1 applicatio TID IMTIAZ Administration Protocol Clobetasol Propionate 1 applic 01/22/18 18:45 Temovate Ointment TOPICAL DAILY PRN PRN ITCHING Protocol Dexamethasone 4 mg 01/26/18 08:00 01/27/18 09:01 Decadron PO 01/28/18 10:00 4 mg DAILY@0800 [facility] Administration Diclofenac Sodium 50 mg 01/27/18 08:00 01/27/18 09:01 Voltaren PO 02/03/18 08:01 50 mg BIDCM [facility] Administration Doxepin HCl 25 mg 01/23/18 22:00 01/26/18 21:19 Sinequan PO 25 mg QHS [facility] Administration Enoxaparin Sodium 30 mg 01/23/18 06:00 01/27/18 06:14 Lovenox SC 30 mg DAILY@0600 [facility] Administration Gabapentin 300 mg 01/22/18 22:00 01/26/18 21:19 Neurontin PO 300 mg QHS [facility] Administration Guaifenesin 1,200 mg 01/23/18 06:00 01/27/18 06:14 Mucinex PO 1,200 mg BID IMT[facility] Administration Insulin Glargine 10 units 01/27/18 18:00 Lantus (Bkc) SC BID IMT[facility] Montelukast Sodium 10 mg 01/22/18 22:00 01/26/18 21:19 Singulair PO 10 mg QHS [facility] Administration Nitroglycerin 0.4 mg 01/22/18 18:47 Nitrostat SUBLINGUAL X1 PRN CARDIAC/CHEST PAIN Nutritional Formula (Lactose Free) 120 ml 01/23/18 12:00 01/27/18 11:41 Glucerna Shake PO 120 ml 4X/DAY [facility] Administration Nystatin 1 applic 01/23/18 18:00 01/27/18 03:29 Mycostatin Powder TOPICAL 1 applicatio BID [facility] Administration Protocol Ondansetron HCl 4 mg 01/26/18 08:09 01/26/18 16:56 Zofran Odt PO 4 mg Q6H PRN PRN Administration NAUSEA Oxycodone HCl 20 mg 01/22/18 22:19 01/27/18 11:43 Oxyir PO 20 mg Q3H PRN PRN Administration SEVERE PAIN (6-10/10) Pantoprazole Sodium 20 mg 01/23/18 06:00 01/27/18 06:14 Protonix PO 20 mg DAILY IMT[facility] Administration Paroxetine HCl 20 mg 01/23/18 22:00 01/26/18 21:19 Paxil PO 20 mg QHS [facility] Administration Polyethylene Glycol 17 gm 01/23/18 06:00 01/27/18 06:14 Miralax PO 17 gm DAILY [facility] Administration Senna/Docusate Sodium 2 tablet 01/23/18 06:00 01/27/18 06:14 Senokot-S, Sheila-Colace PO 2 tablet BID [facility] Administration Tuberculin PPD 5 tu 01/30/18 10:00 Tubersol, Aplisol, Ppd ID 01/30/18 10:01 X1 ONE Problem List Metastatic sarcoma (Acute) Coronary artery disease (Chronic) Vitamin D deficiency (Chronic) GERD (gastroesophageal reflux disease) (Chronic) Muscle spasm (Chronic) Stroke (Chronic) Right hemiplegia (Acute) Diabetes mellitus (Chronic) Hypertension (Chronic) Urinary incontinence (Acute) Vital Signs Temp Pulse Resp BP Pulse Ox 98.6 F 81 18 128/75 H 95 01/27/18 16:00 01/27/18 16:00 01/27/18 16:00 01/27/18 16:00 01/27/18 16:00 Oxygen Delivery Method Room Air Weight: 69.513 kg Body Mass Index (BMI) 24.2 Sodium 137 mmol/L (136-145) 01/23/18 05:25 Potassium 3.9 mmol/L (3.5-5.1) 01/23/18 05:25 Chloride 102 mmol/L (98-107) 01/23/18 05:25 Carbon Dioxide 27.0 mmol/L (21.0-32.0) 01/23/18 05:25 Anion Gap 8 (5-15) 01/23/18 05:25 BUN 30 mg/dL (7-18) H 01/23/18 05:25 Creatinine 0.55 mg/dL (0.55-1.02) 01/23/18 05:25 Est GFR (MDRD) Af Amer 141 mL/min (>60) 01/23/18 05:25 Est GFR (MDRD) Non-Af 116 mL/min (>60) 01/23/18 05:25 BUN/Creatinine Ratio 54.9 RATIO (10-20) H 01/23/18 05:25 Glucose 132 mg/dL (74-106) H 01/23/18 05:25 Assessment/Plan: Psychotropic Medications: Unnecessary Medications: Bowel Regimen: - Provider Comments Provider responsibility: Provider responsible to enter orders to implement recommendations Provider Comments to Recommendations by Pharmacy: Agree
[2018-01-27 16:00] VITALS: BP 128/75; PULSE 81; RESP 18; TEMP 37; O2SAT 95
[2018-01-27 17:10] LABS: Bedside Glucose 326 mg/dL (70-110)
[2018-01-27] MEDS: Electrolyte Solution/Peg's 4000 ML 1000 ML PO (20:16)
[2018-01-27 21:50] LABS: Bedside Glucose 280 mg/dL (70-110)
[2018-01-27] MEDS: Gabapentin 300 MG Capsule PO (21:55)
[2018-01-27] MEDS: Montelukast 10 MG Tablet PO (21:55)
[2018-01-27] MEDS: Baclofen 10 MG Tablet PO (21:55)
[2018-01-27] MEDS: Atorvastatin Calcium 40 MG Tablet PO (21:55)
[2018-01-27] MEDS: Doxepin Hcl 25 MG Capsule PO (21:55)
[2018-01-28] MEDS: Polyethylene Glycol 3350 17 GM PACKET PO (06:31)
[2018-01-28] MEDS: Senna/Docusate Sodium 1 Tablet 2 TABLET PO ×2 (06:35→16:40)
[2018-01-28] MEDS: oxyCODONE 5 MG Tablet 20 MG PO ×2 (06:35→10:00)
[2018-01-28] MEDS: Pantoprazole Sodium 20 MG Tablet PO (06:35)
[2018-01-28] MEDS: guaiFENesin 1,200 MG Tablet 1200 MG PO ×2 (06:35→16:39)
[2018-01-28] MEDS: Menthol/Lanolin/Calamine/Znox 113 GM Tube 1 APPLIC TOPICAL ×3 (06:36→21:27)
[2018-01-28] MEDS: Enoxaparin 30 MG/0.3 ML Syringe SC (06:36)
[2018-01-28] MEDS: Nystatin Powder 15gm Bottle 1 APPLIC TOPICAL ×2 (06:36→16:40)
[2018-01-28] MEDS: Glucerna Shake 120 ML LIQUID PO ×4 (06:40→21:21)
[2018-01-28 06:45] LABS: Bedside Glucose 145 mg/dL (70-110)
[2018-01-28] MEDS: Aspirin E.C. 81 MG Tablet PO (09:25)
[2018-01-28 10:00] VITALS: PULSE 84; RESP 18
[2018-01-28 12:06] LABS: Bedside Glucose 249 mg/dL (70-110)
--- NOTE | 2018-01-28 14:55 | CASEMGMT ---
Plan of care meeting held. Resident present as well as resident family. No discharge date set at this time. Resident plans to discharge to home alone at time of discharge. Resident currently requires 24hr care as well as assist of 2 people at times. Resident aware that home alone is something that resident is not able to do at this time. Resident making progress with therapy. Resident spouse currently at the [facility] [place] receiving care and this would be resident first choice is resident would need to discharge to another facility. At this time resident will continue with further care and treatment on the Transitional Care Unit. Support given. Will continue to follow. Rosana Bhat, COMBINATION SAW OPERATOR, PRODUCTION CONTROL SPECIALIST
[2018-01-28 16:00] VITALS: BP 119/78; PULSE 97; RESP 18; TEMP 36.7; O2SAT 94
[2018-01-28 16:50] LABS: Bedside Glucose 441 mg/dL (70-110)
[2018-01-28 21:16] LABS: Bedside Glucose 315 mg/dL (70-110)
[2018-01-28] MEDS: Atorvastatin Calcium 40 MG Tablet PO (21:21)
[2018-01-28] MEDS: Doxepin Hcl 25 MG Capsule PO (21:21)
[2018-01-28] MEDS: Montelukast 10 MG Tablet PO (21:21)
[2018-01-28] MEDS: Gabapentin 300 MG Capsule PO (21:21)
[2018-01-28] MEDS: Baclofen 10 MG Tablet PO (21:22)
[2018-01-29] MEDS: guaiFENesin 1,200 MG Tablet 1200 MG PO ×2 (05:34→17:49)
[2018-01-29] MEDS: Enoxaparin 30 MG/0.3 ML Syringe SC (05:34)
[2018-01-29] MEDS: Polyethylene Glycol 3350 17 GM PACKET PO (05:34)
[2018-01-29] MEDS: Pantoprazole Sodium 20 MG Tablet PO (05:34)
[2018-01-29] MEDS: Senna/Docusate Sodium 1 Tablet 2 TABLET PO ×2 (05:34→17:49)
[2018-01-29] MEDS: oxyCODONE 5 MG Tablet 20 MG PO ×4 (05:34→21:11)
[2018-01-29] MEDS: Glucerna Shake 120 ML LIQUID PO ×4 (05:35→21:12)
[2018-01-29] MEDS: Nystatin Powder 15gm Bottle 1 APPLIC TOPICAL ×2 (05:38→17:57)
[2018-01-29] MEDS: Menthol/Lanolin/Calamine/Znox 113 GM Tube 1 APPLIC TOPICAL ×3 (05:39→21:15)
[2018-01-29 06:51] LABS: Bedside Glucose 206 mg/dL (70-110)
[2018-01-29] MEDS: Aspirin E.C. 81 MG Tablet PO (09:51)
[2018-01-29] MEDS: Insulin Lispro 100 UNIT/ML INSULN.PEN 10 UNIT SC ×3 (09:52→17:50)
[2018-01-29 11:21] LABS: Bedside Glucose 244 mg/dL (70-110)
--- NOTE | 2018-01-29 13:37 | CASEMGMT ---
Addendum entered by Rosana Bhat 01/29/18 14:17: Reviewed and approved social work student MDS documentation. MARQUES Hart, GRAIN PICKER Original Note: Brief interview for mental status (BIMS) and mood (PHQ-9) completed on this day. BIMS score 13/15. PHQ-9 score 13/27. Herberth Mosqueda social work student
[2018-01-29 15:25] VITALS: BP 108/64; PULSE 90; RESP 14; TEMP 36.9; O2SAT 96
[2018-01-29 17:06] LABS: Bedside Glucose 156 mg/dL (70-110)
[2018-01-29] MEDS: Baclofen 10 MG Tablet PO (21:11)
[2018-01-29] MEDS: Montelukast 10 MG Tablet PO (21:11)
[2018-01-29] MEDS: Doxepin Hcl 25 MG Capsule PO (21:11)
[2018-01-29] MEDS: Atorvastatin Calcium 40 MG Tablet PO (21:11)
[2018-01-29] MEDS: Gabapentin 300 MG Capsule PO (21:14)
[2018-01-29 21:16] LABS: Bedside Glucose 254 mg/dL (70-110)
[2018-01-30] MEDS: oxyCODONE 5 MG Tablet 20 MG PO ×3 (01:59→10:23)
[2018-01-30] MEDS: Bisacodyl 5 MG Tablet 10 MG PO (01:59)
--- NOTE | 2018-01-30 02:00 | NURSING ---
Pt complaint of severe lower abd pain. Abd distended and firm. Dr. Craig updated. Orders entered.
[2018-01-30] MEDS: Electrolyte Solution/Peg's 4000 ML 2000 ML PO (03:13)
[2018-01-30 05:58] LABS: Hematocrit 34.3 % (37-47); Hemoglobin 10.9 g/dl (12.0-15.0); Mean Corp Hgb Conc 31.8 g/gl (32-36); Mean Corpuscular Hgb 30.4 pg (27.0-32.0); Mean Corpuscular Volume 95.5 fL (81-99); Mean Platelet Vol. 9.8 fl (6.2-12.0); Platelet Count 135 K/mm3 (150-450); RBC Distribution Width CV 13.1 % (11.6-14.6); RBC Distribution Width SD 43.7 fl (35.1-43.9); Red Blood Count 3.59 M/mm3 (4.2-5.4); White Blood Count 4.6 K/mm3 (4.4-11.0)
[2018-01-30 06:01] LABS: Differential Indicated MANUAL DIFF; POSITIVE COUNT YES; POSITIVE DIFFERENTIAL YES; POSITIVE MORPHOLOGY YES
[2018-01-30 06:19] LABS: Anion Gap 9 (5-15); BUN 39 mg/dL (7-18); BUN/Creat Ratio 83.9 RATIO (10-20); Calcium,Total 8.1 mg/dL (8.5-10.1); Chloride 99 mmol/L (98-107); Creatinine, Serum 0.46 mg/dL (0.55-1.02); EST Glomerular Filtration Rate 140 mL/min (>60); Est Glom Filt Rate - Afr Amer 169 mL/min (>60); Glucose 123 mg/dL (74-106); Potassium 3.9 mmol/L (3.5-5.1); Sodium Level 137 mmol/L (136-145)
[2018-01-30] MEDS: Pantoprazole Sodium 20 MG Tablet PO (06:27)
[2018-01-30] MEDS: Enoxaparin 30 MG/0.3 ML Syringe SC (06:27)
[2018-01-30] MEDS: Senna/Docusate Sodium 1 Tablet 2 TABLET PO ×2 (06:27→17:47)
[2018-01-30] MEDS: Polyethylene Glycol 3350 17 GM PACKET PO (06:27)
[2018-01-30] MEDS: guaiFENesin 1,200 MG Tablet 1200 MG PO ×2 (06:28→17:47)
[2018-01-30] MEDS: Nystatin Powder 15gm Bottle 1 APPLIC TOPICAL ×2 (06:33→17:46)
[2018-01-30] MEDS: Menthol/Lanolin/Calamine/Znox 113 GM Tube 1 APPLIC TOPICAL ×3 (06:33→21:15)
[2018-01-30 06:41] LABS: Bedside Glucose 117 mg/dL (70-110)
[2018-01-30 06:41] LABS: Eosinophil 1 % (0-5); Lymphocyte 6 % (19-41); Metamyelocyte 1 % (0-1); Monocyte 2 % (0-10); Neutrophil-Band 5 % (0-5); Neutrophil-Segmented 85 % (47-70); Total Cells Counted 100 (MANUAL DIFF)
[2018-01-30 06:42] LABS: Platelet Estimate SLT DEC (ADEQ); Red Cell Morphology NORM C+C NORMAL (NORM C&C)
[2018-01-30 06:46] LABS: Absolute Lymphocyte Count 0.28 X10^3/ul (0.83-4.51); Absolute Neutrophil Count 4.1 X10^3/uL (2.0-7.7)
--- NOTE | 2018-01-30 08:25 | RAD_ITS ---
STUDY: X-RAY - ABDOMEN/PELVIS REASON FOR EXAM: Female, 72 years old. Constipation with abdominal distention TECHNIQUE: Two AP supine views of the abdomen and pelvis. COMPARISON: 01/26/2018 FINDINGS: As compared to the most recent prior, significant decrease in fecal retention throughout the colon. Scattered gaseous distended loops of colon with gaseous distended stomach. No evidence of small bowel obstruction. Remainder is unchanged RAD/Abdomen Single View (Portable) IMPRESSION: Overall, decreased fecal retention. Gaseous distended loops of colon and stomach. No evidence of small bowel obstruction. Electronically Signed: Fausto Ramirez DO at 12:38 EST Tel , Service support ,
[2018-01-30] MEDS: Aspirin E.C. 81 MG Tablet PO (08:59)
[2018-01-30 10:00] VITALS: PULSE 70
[2018-01-30] MEDS: Tuberculin,Purif.prot.deriv. 50 TU/ML Vial 5 ML ID (10:27)
[2018-01-30] MEDS: Magnesium Citrate 300 ML PO (10:29)
--- NOTE | 2018-01-30 10:33 | NURSING ---
Pt very down, depressed. Pt ABD firm and tender Pt c/o stabbing pain 9/10 at this time. Pt given mag citriate per Dr order, and drank all 300Ml. Pt refused breakfast and therapy this day. Elza SINGH aware.
[2018-01-30 11:20] LABS: Bedside Glucose 105 mg/dL (70-110)
[2018-01-30 12:55] LABS: Pathologist Review Reviewed
[2018-01-30 15:39] VITALS: BP 118/64; PULSE 72; RESP 18; TEMP 36.7; O2SAT 91
[2018-01-30 17:16] LABS: Bedside Glucose 101 mg/dL (70-110)
--- NOTE | 2018-01-30 17:55 | NURSING ---
reported to this nurse by Crystal SINGH Pt has small green bile emesis. Elza SINGH aware
[2018-01-30] MEDS: Gabapentin 300 MG Capsule PO (21:14)
[2018-01-30] MEDS: Baclofen 10 MG Tablet PO (21:14)
[2018-01-30] MEDS: Atorvastatin Calcium 40 MG Tablet PO (21:14)
[2018-01-30] MEDS: Doxepin Hcl 25 MG Capsule PO (21:14)
[2018-01-30] MEDS: Montelukast 10 MG Tablet PO (21:14)
[2018-01-30] MEDS: Glucerna Shake 120 ML LIQUID PO (21:15)
[2018-01-30 21:31] LABS: Bedside Glucose 94 mg/dL (70-110)
[2018-01-31 03:42] VITALS: BP 122/70; PULSE 83; O2SAT 91
[2018-01-31] MEDS: Bisacodyl 5 MG Tablet 10 MG PO (05:10)
[2018-01-31] MEDS: guaiFENesin 1,200 MG Tablet 1200 MG PO ×2 (05:10→17:02)
[2018-01-31] MEDS: Polyethylene Glycol 3350 17 GM PACKET PO ×2 (05:11→17:01)
[2018-01-31] MEDS: Senna/Docusate Sodium 1 Tablet 2 TABLET PO ×2 (05:11→17:01)
[2018-01-31] MEDS: Pantoprazole Sodium 20 MG Tablet PO (05:11)
[2018-01-31] MEDS: Nystatin Powder 15gm Bottle 1 APPLIC TOPICAL ×2 (05:11→17:07)
[2018-01-31] MEDS: Enoxaparin 30 MG/0.3 ML Syringe SC (05:11)
[2018-01-31] MEDS: Glucerna Shake 120 ML LIQUID PO ×3 (05:11→21:21)
[2018-01-31] MEDS: Menthol/Lanolin/Calamine/Znox 113 GM Tube 1 APPLIC TOPICAL ×3 (05:11→21:21)
[2018-01-31] MEDS: Ondansetron ODT 4 MG Tablet PO (05:19)
--- NOTE | 2018-01-31 06:50 | NURSING ---
Pt had two large BM last HS but unable to void this AM. Bladder scanned for >999mL after two attempts to void. Dr. Craig updated, N.O. to start Flomax 0.4mg daily and insert a FC. Pt updated and FC inserted at this time. fish and wildlife technician used and FC had an immediate return of clear yellow urine. Pt expressing relief.
[2018-01-31 06:51] LABS: Bedside Glucose 145 mg/dL (70-110)
[2018-01-31] MEDS: Aspirin E.C. 81 MG Tablet PO (09:02)
[2018-01-31] MEDS: Insulin Lispro 100 UNIT/ML INSULN.PEN 10 UNIT SC ×3 (09:03→17:00)
[2018-01-31 11:10] LABS: Bedside Glucose 255 mg/dL (70-110)
[2018-01-31] MEDS: oxyCODONE 5 MG Tablet 20 MG PO ×2 (11:29→16:09)
[2018-01-31 16:00] VITALS: BP 111/56; PULSE 97; RESP 18; TEMP 36.6; O2SAT 94
[2018-01-31 16:50] LABS: Bedside Glucose 170 mg/dL (70-110)
[2018-01-31] MEDS: Tamsulosin HCl 0.4 MG Capsule PO (17:00)
[2018-01-31 21:16] LABS: Bedside Glucose 259 mg/dL (70-110)
[2018-01-31 21:20] VITALS: PULSE 93; O2SAT 97
[2018-01-31] MEDS: Baclofen 10 MG Tablet PO (21:22)
[2018-01-31] MEDS: Gabapentin 300 MG Capsule PO (21:22)
[2018-01-31] MEDS: Atorvastatin Calcium 40 MG Tablet PO (21:22)
[2018-01-31] MEDS: Montelukast 10 MG Tablet PO (21:23)
[2018-01-31] MEDS: Doxepin Hcl 25 MG Capsule PO (21:23)
[2018-02-01] MEDS: Menthol/Lanolin/Calamine/Znox 113 GM Tube 1 APPLIC TOPICAL ×3 (06:17→21:03)
[2018-02-01] MEDS: Polyethylene Glycol 3350 17 GM PACKET PO (06:17)
[2018-02-01] MEDS: Bisacodyl 5 MG Tablet 10 MG PO (06:18)
[2018-02-01] MEDS: Glucerna Shake 120 ML LIQUID PO ×3 (06:18→17:46)
[2018-02-01] MEDS: Nystatin Powder 15gm Bottle 1 APPLIC TOPICAL ×2 (06:19→17:46)
[2018-02-01] MEDS: Enoxaparin 30 MG/0.3 ML Syringe SC (06:19)
[2018-02-01] MEDS: Senna/Docusate Sodium 1 Tablet 2 TABLET PO ×2 (06:19→17:45)
[2018-02-01] MEDS: Pantoprazole Sodium 20 MG Tablet PO (06:19)
[2018-02-01] MEDS: guaiFENesin 1,200 MG Tablet 1200 MG PO ×2 (06:19→17:45)
[2018-02-01 06:56] LABS: Bedside Glucose 126 mg/dL (70-110)
[2018-02-01] MEDS: Aspirin E.C. 81 MG Tablet PO (08:14)
[2018-02-01] MEDS: Insulin Lispro 100 UNIT/ML INSULN.PEN 10 UNIT SC ×3 (08:15→17:44)
[2018-02-01 11:15] LABS: Bedside Glucose 236 mg/dL (70-110)
[2018-02-01 15:30] VITALS: BP 128/70; PULSE 91; RESP 18; TEMP 36.2; O2SAT 95
[2018-02-01 16:55] LABS: Bedside Glucose 187 mg/dL (70-110)
[2018-02-01] MEDS: Tamsulosin HCl 0.4 MG Capsule PO (17:45)
[2018-02-01 21:01] LABS: Bedside Glucose 215 mg/dL (70-110)
[2018-02-01] MEDS: Baclofen 10 MG Tablet PO (21:03)
[2018-02-01] MEDS: Gabapentin 300 MG Capsule PO (21:04)
[2018-02-01] MEDS: Atorvastatin Calcium 40 MG Tablet PO (21:04)
[2018-02-01] MEDS: Montelukast 10 MG Tablet PO (21:04)
[2018-02-01] MEDS: Doxepin Hcl 25 MG Capsule PO (21:04)
[2018-02-01 21:07] VITALS: PULSE 95; O2SAT 97
[2018-02-02 01:45] VITALS: PULSE 92; RESP 18; O2SAT 97
[2018-02-02] MEDS: Menthol/Lanolin/Calamine/Znox 113 GM Tube 1 APPLIC TOPICAL ×3 (05:56→21:23)
[2018-02-02] MEDS: oxyCODONE 5 MG Tablet 20 MG PO ×3 (05:56→18:12)
[2018-02-02] MEDS: Bisacodyl 5 MG Tablet 10 MG PO (05:57)
[2018-02-02] MEDS: guaiFENesin 1,200 MG Tablet 1200 MG PO ×2 (05:57→18:13)
[2018-02-02] MEDS: Pantoprazole Sodium 20 MG Tablet PO (05:57)
[2018-02-02] MEDS: Glucerna Shake 120 ML LIQUID PO ×3 (05:57→21:25)
[2018-02-02] MEDS: Nystatin Powder 15gm Bottle 1 APPLIC TOPICAL ×2 (05:57→21:22)
[2018-02-02] MEDS: Senna/Docusate Sodium 1 Tablet 2 TABLET PO ×2 (05:57→18:13)
[2018-02-02] MEDS: Enoxaparin 30 MG/0.3 ML Syringe SC (05:57)
[2018-02-02 07:01] LABS: Bedside Glucose 130 mg/dL (70-110)
[2018-02-02] MEDS: Aspirin E.C. 81 MG Tablet PO (08:10)
[2018-02-02] MEDS: Insulin Lispro 100 UNIT/ML INSULN.PEN 10 UNIT SC ×3 (08:11→18:14)
[2018-02-02 11:45] LABS: Bedside Glucose 149 mg/dL (70-110)
[2018-02-02 15:33] VITALS: BP 117/67; PULSE 92; RESP 14; TEMP 36.8; O2SAT 98
[2018-02-02 16:55] LABS: Bedside Glucose 151 mg/dL (70-110)
[2018-02-02] MEDS: Tamsulosin HCl 0.4 MG Capsule PO (18:13)
[2018-02-02] MEDS: Polyethylene Glycol 3350 17 GM PACKET PO (18:13)
[2018-02-02 21:06] LABS: Bedside Glucose 219 mg/dL (70-110)
[2018-02-02] MEDS: Montelukast 10 MG Tablet PO (21:20)
[2018-02-02] MEDS: Gabapentin 300 MG Capsule PO (21:21)
[2018-02-02] MEDS: Doxepin Hcl 25 MG Capsule PO (21:21)
[2018-02-02] MEDS: Atorvastatin Calcium 40 MG Tablet PO (21:21)
[2018-02-02] MEDS: Baclofen 10 MG Tablet PO (21:21)
[2018-02-03] MEDS: Enoxaparin 30 MG/0.3 ML Syringe SC (04:43)
[2018-02-03] MEDS: Glucerna Shake 120 ML LIQUID PO ×2 (04:43→11:36)
[2018-02-03] MEDS: Bisacodyl 5 MG Tablet 10 MG PO (04:43)
[2018-02-03] MEDS: Pantoprazole Sodium 20 MG Tablet PO (04:43)
[2018-02-03] MEDS: Menthol/Lanolin/Calamine/Znox 113 GM Tube 1 APPLIC TOPICAL ×3 (04:43→21:09)
[2018-02-03] MEDS: guaiFENesin 1,200 MG Tablet 1200 MG PO ×2 (04:43→17:20)
[2018-02-03] MEDS: Senna/Docusate Sodium 1 Tablet 2 TABLET PO ×2 (04:43→17:20)
[2018-02-03] MEDS: Nystatin Powder 15gm Bottle 1 APPLIC TOPICAL ×2 (04:47→21:09)
[2018-02-03 06:36] LABS: Bedside Glucose 130 mg/dL (70-110)
[2018-02-03] MEDS: Insulin Lispro 100 UNIT/ML INSULN.PEN 10 UNIT SC ×3 (08:32→17:56)
[2018-02-03] MEDS: Aspirin E.C. 81 MG Tablet PO (08:36)
--- NOTE | 2018-02-03 09:36 | MDS.RN ---
Information for the mds was obtained from review of the clinical record, interview of resident, staff, and direct observation of resident's care.
[2018-02-03] MEDS: oxyCODONE 5 MG Tablet 20 MG PO ×3 (11:36→21:03)
[2018-02-03 11:55] LABS: Bedside Glucose 185 mg/dL (70-110)
[2018-02-03 16:00] VITALS: BP 114/71; PULSE 93; RESP 18; TEMP 36.8; O2SAT 94
--- NOTE | 2018-02-03 16:10 | CHAPLAIN ---
Type of Pastoral Visit _x__ Initial Visit ___ Follow-up Visit ___ On-call Visit ___ General Patient Visit ___ Spiritual Assessment ___ Family Conference ___ Bereavement ___ Rapid Response ___ Code Blue ___ Other (describe below) Pastoral Care Referral From _x__ Patient ___ Family ___ Nurse ___ Physician ___ Safety And Occupational Health Manager ___ Rate Quoting Operator _x__ Bull Gang Supervisor/Other (describe below) Sacrament/Intervention _x__ Active listening ___ Anointing ___ Lutheran ___ Bereavement ___ Communion _x__ Qiana exploration ___ _x__ Life review _x__ Prayer ___ Reconciliation ___ Sacrament of Sick _x__ Supportive presence ___ Wedding ___ Other (describe below) Pastoral Comments patient and her daughter are in room; this page designer followed Palliative Care worker; pt is considering options with Palliative Care and is facing the sale of her home/belongings and the permanent placement of her into an ECF; pt declares she is facing her challenges with qiana in [place] and waiting on her healing; patient welcomed prayer and is open to further visits with the page designer
[2018-02-03 16:55] LABS: Bedside Glucose 128 mg/dL (70-110)
[2018-02-03] MEDS: Tamsulosin HCl 0.4 MG Capsule PO (17:20)
--- NOTE | 2018-02-03 19:05 | NURSING ---
AID ASKED THIS NURSE TO COME TO PT ROOM AND LOOK AT PT CATH BAG. SEEN THERE WAS BLOOD IN BAG. ASKED PT IF HER CATH WAS PULLED ON TODAY OR ANY DISCOMFORT. PT STATED NO. REPORTED TO SAMANTHA SMITH
[2018-02-03] MEDS: Atorvastatin Calcium 40 MG Tablet PO (21:03)
[2018-02-03] MEDS: Gabapentin 300 MG Capsule PO (21:03)
[2018-02-03] MEDS: Doxepin Hcl 25 MG Capsule PO (21:03)
[2018-02-03 21:06] LABS: Bedside Glucose 137 mg/dL (70-110)
[2018-02-03] MEDS: Montelukast 10 MG Tablet PO (21:10)
[2018-02-04] MEDS: oxyCODONE 5 MG Tablet 20 MG PO ×5 (01:37→21:13)
[2018-02-04] MEDS: Senna/Docusate Sodium 1 Tablet 2 TABLET PO ×2 (05:54→16:49)
[2018-02-04] MEDS: guaiFENesin 1,200 MG Tablet 1200 MG PO (05:54)
[2018-02-04] MEDS: Bisacodyl 5 MG Tablet 10 MG PO (05:54)
[2018-02-04] MEDS: Pantoprazole Sodium 20 MG Tablet PO (05:54)
[2018-02-04] MEDS: Enoxaparin 30 MG/0.3 ML Syringe SC (05:55)
[2018-02-04] MEDS: Nystatin Powder 15gm Bottle 1 APPLIC TOPICAL ×2 (06:09→21:15)
[2018-02-04] MEDS: Menthol/Lanolin/Calamine/Znox 113 GM Tube 1 APPLIC TOPICAL ×3 (06:10→21:16)
[2018-02-04 06:46] LABS: Bedside Glucose 127 mg/dL (70-110)
[2018-02-04] MEDS: Aspirin E.C. 81 MG Tablet PO (09:41)
[2018-02-04] MEDS: Ondansetron ODT 4 MG Tablet PO (09:49)
--- NOTE | 2018-02-04 10:25 | CASEMGMT ---
Brief interview for mental status (BIMS) and resident mood interview (PHQ-9) completed on this day. BIMS score 1515. PHQ-9 score 06/17
[2018-02-04 11:50] LABS: Bedside Glucose 168 mg/dL (70-110)
[2018-02-04] MEDS: Insulin Lispro 100 UNIT/ML INSULN.PEN 10 UNIT SC ×2 (11:50→16:54)
[2018-02-04 15:47] VITALS: BP 113/59; PULSE 97; RESP 18; TEMP 36.7; O2SAT 92
[2018-02-04] MEDS: Tamsulosin HCl 0.4 MG Capsule PO (16:49)
[2018-02-04 16:51] LABS: Bedside Glucose 145 mg/dL (70-110)
--- NOTE | 2018-02-04 17:04 | PCM.CONS.U ---
Reason for Consult Date of Consultation: 02/04/18 Reason for Consultation: Urinary retention after stroke History of Present Illness: The patient is a 72 year old female with metastatic sarcoma treated with radiation she unfortunately suffered a stroke and is now in rehab, her right side is affected severely bladder weakness in the right arm a lot of weakness in the right light leg can only get up and move around with full help and pivots but is full assist with movement. She has a urinary catheter in place for retention of urine she is on Flomax we could try adding bethanechol and do another voiding trial to see if she could urinate but given her conditions possible she may not be able to. Past Medical History Past Medical History (Chronic Problems): Chronic Problems Coronary artery disease (Chronic) Vitamin D deficiency (Chronic) GERD (gastroesophageal reflux disease) (Chronic) Muscle spasm (Chronic) Stroke (Chronic) Diabetes mellitus (Chronic) Hypertension (Chronic) Allergies cephalexin [From Keflex] Allergy (Verified 01/22/18 19:01) Rash ciprofloxacin [From Cipro] Adverse Reaction (Verified 01/04/18 17:12) Rash erythromycin base Adverse Reaction (Verified 01/04/18 17:12) Rash Penicillins Adverse Reaction (Verified 01/04/18 17:12) Rash sulfamethoxazole [From Bactrim] Adverse Reaction (Verified 01/04/18 17:12) Rash trimethoprim [From Bactrim] Adverse Reaction (Verified 01/04/18 17:12) Rash Home Medications: Ambulatory Orders Medication Instructions Recorded Calcium Carbonate/Vitamin D3 1 tab PO DAILY 12/18/17 [Caltrate 600 Plus D3 Tablet] Cholecalciferol (Vitamin D3) 2,000 unit PO DAILY 01/04/18 [Vitamin D3] Montelukast Sodium 10 mg PO QHS 01/05/18 Amitriptyline HCl [Elavil] 10 mg PO QHS 01/22/18 Aspirin E.C. [Ecotrin] 81 mg PO DAILY@0800 01/22/18 Atorvastatin Calcium 40 mg PO QHS 01/22/18 Clobetasol Propionate [Temovate 1 applic TOPICAL DAILY 01/22/18 Ointment] Dexamethasone [Decadron] 4 mg PO BIDCM 01/22/18 Gabapentin [Neurontin] 300 mg PO QHS 01/22/18 Guaifenesin [Mucinex] 1,200 mg PO BID 01/22/18 Insulin Lispro [Humalog KwikPen] 15 unit SQ TIDCM 01/22/18 Lactulose [Chronulac, Cephulac] 20 gm PO TID 01/22/18 Loratadine/Pseudo 240/10 1 tablet PO DAILY PRN PRN 01/22/18 [Claritin-D 24 Hr] Nitroglycerin 0.4 mg SL X1 PRN 01/22/18 [place]-3 Fatty Acids [Fish Oil] 500 mg PO DAILY 01/22/18 Omeprazole [Prilosec] 20 mg PO DAILY 01/22/18 Oxycodone [Oxyir] 20 mg PO Q3H PRN 01/22/18 Senna/Docusate Sodium [Senokot-S, 2 tablet PO BID 01/22/18 Sheila-Colace] Sertraline HCl [Zoloft] 25 mg PO DAILY 01/22/18 Topiramate [Topamax] 25 mg PO QHS PRN PRN 01/22/18 traZODone [Desyrel] 50 mg PO QHS 01/22/18 Surgical History: - - parotid surgery Psychiatric History: No pertinent psych hx SKIVER WELT END History: No pertinent SKIVER WELT END history Lives: Alone - lives in LTC facility. Smoking Status: Former smoker Tobacco Use: Non-smoker Alcohol: None Drugs: None - *Family History Maternal History Items: No pertinent history Paternal History Items: No pertinent history Review of Systems Constitutional: Denies: Chills, Fever, Weight Change HEENT: Denies: Head Aches, Sinus Congestion, Sinus Drainage Cardiovascular: Denies: Chest Pain, Palpitations Respiratory: Denies: Cough, Shortness of breath at rest, Sputum production Gastrointestinal: Denies: Abdominal Pain, Nausea, Vomiting Genitourinary: Reports: Retention Musculoskeletal: Denies: Joint Pain, Joint Tenderness Skin: Denies: Rash, Wounds Neurological: Reports: Balance problems, Focal weakness. Denies: Numbness, Tingling Psychiatric: Denies: Anxiety, Depression, Homicidal Ideations, Suicidal Ideations Hematologic/ Lymphatic: Denies: Easy Bruising, Easy Bleeding Physical Exam - Physical Exam Vital Signs Temp 98.1 F 02/04/18 15:47 Pulse 97 02/04/18 15:47 Resp 18 02/04/18 15:47 BP 113/59 L 02/04/18 15:47 Pulse Ox 92 02/04/18 15:47 Intake & Output 02/02/18 02/03/18 02/04/18 23:59 23:59 23:59 Intake Total 990 / 990 720 / 720 523 / 523 Output Total 850 / 850 1000 / 1000 1500 / 1500 Balance 140 / 140 -280 / -280 -977 / -977 Weight: 71.894 kg 71.894 kg Intake: Oral 990 / 990 720 / 720 523 / 523 Output: Urine 850 / 850 1000 / 1000 1500 / 1500 General: Alert, Oriented x3 HEENT: Atraumatic Oral: Moist Mucosa Neck: Supple Lungs: Normal air movement Abdomen: Soft, Obese Assessment/Plan All Active Problems Acute chest pain (Acute) Metastatic sarcoma (Acute) Right hemiplegia (Acute) Urinary incontinence (Acute) 72-year-old female with metastatic sarcoma undergoing radiation treatments who is developed a stroke and now has significant weakness on the right side she developed retention of urine with a catheter she currently is Flomax ordered we could try adding bethanechol 25 mg 3 times daily we could try another voiding trial to see if this will help and see if he can control her bladder and urinate spontaneously or may be used a depends but it is possible she may not be able to urinate spontaneously if that the case up I need a catheter chronically, given questions please give me a call.
--- NOTE | 2018-02-04 17:42 | NURSING ---
DR Duke here to see pt, new order to remove austin on friday and start voiding trials. start pt on betachol.
--- NOTE | 2018-02-04 19:34 | NURSING ---
Pt returned to floor from [address] Toussaint, Dtr went along to mattt, Lucy POWER in room applying wound vac back to [facility]
[2018-02-04] MEDS: BETHANECHOL CHLORIDE 25 MG TABLET PO (21:10)
[2018-02-04] MEDS: Atorvastatin Calcium 40 MG Tablet PO (21:10)
[2018-02-04] MEDS: Gabapentin 300 MG Capsule PO (21:10)
[2018-02-04] MEDS: Doxepin Hcl 25 MG Capsule PO (21:11)
[2018-02-04] MEDS: Montelukast 10 MG Tablet PO (21:11)
[2018-02-04 21:21] LABS: Bedside Glucose 112 mg/dL (70-110)
[2018-02-05] MEDS: Bisacodyl 5 MG Tablet 10 MG PO (05:19)
[2018-02-05] MEDS: BETHANECHOL CHLORIDE 25 MG TABLET PO ×4 (05:19→20:23)
[2018-02-05] MEDS: Enoxaparin 30 MG/0.3 ML Syringe SC (05:19)
[2018-02-05] MEDS: Pantoprazole Sodium 20 MG Tablet PO (05:20)
[2018-02-05] MEDS: Senna/Docusate Sodium 1 Tablet 2 TABLET PO ×2 (05:20→17:38)
[2018-02-05] MEDS: Menthol/Lanolin/Calamine/Znox 113 GM Tube 1 APPLIC TOPICAL ×3 (05:22→20:25)
[2018-02-05] MEDS: Nystatin Powder 15gm Bottle 1 APPLIC TOPICAL ×2 (05:22→20:26)
[2018-02-05 06:51] LABS: Bedside Glucose 137 mg/dL (70-110)
[2018-02-05] MEDS: Insulin Lispro 100 UNIT/ML INSULN.PEN 10 UNIT SC ×3 (08:29→17:37)
[2018-02-05] MEDS: Aspirin E.C. 81 MG Tablet PO (08:29)
[2018-02-05] MEDS: oxyCODONE 5 MG Tablet 20 MG PO ×3 (08:31→20:21)
[2018-02-05 11:01] LABS: Bedside Glucose 210 mg/dL (70-110)
[2018-02-05] MEDS: Glucerna Shake 120 ML LIQUID PO (11:43)
--- NOTE | 2018-02-05 11:48 | NURSING ---
Pt was able to give self insulin injection with some guidance. Pt educated on proper use of insulin pen and needle and different injection sites. Receptive to education.
[2018-02-05 15:50] VITALS: BP 107/57; PULSE 103; RESP 20; TEMP 37.1; O2SAT 94
[2018-02-05 17:01] LABS: Bedside Glucose 137 mg/dL (70-110)
[2018-02-05] MEDS: Tamsulosin HCl 0.4 MG Capsule PO (17:38)
[2018-02-05] MEDS: Doxepin Hcl 25 MG Capsule PO (20:23)
[2018-02-05] MEDS: Gabapentin 300 MG Capsule PO (20:23)
[2018-02-05] MEDS: Atorvastatin Calcium 40 MG Tablet PO (20:23)
[2018-02-05] MEDS: Montelukast 10 MG Tablet PO ×2 (20:23)
[2018-02-05 21:51] LABS: Bedside Glucose 90 mg/dL (70-110)
[2018-02-06] MEDS: oxyCODONE 5 MG Tablet 20 MG PO ×5 (00:42→23:04)
[2018-02-06] MEDS: BETHANECHOL CHLORIDE 25 MG TABLET PO ×4 (05:43→21:36)
[2018-02-06] MEDS: Senna/Docusate Sodium 1 Tablet 2 TABLET PO ×2 (05:44→17:59)
[2018-02-06] MEDS: Bisacodyl 5 MG Tablet 10 MG PO (05:44)
[2018-02-06] MEDS: Enoxaparin 30 MG/0.3 ML Syringe SC (05:44)
[2018-02-06] MEDS: Pantoprazole Sodium 20 MG Tablet PO (05:44)
[2018-02-06] MEDS: Menthol/Lanolin/Calamine/Znox 113 GM Tube 1 APPLIC TOPICAL ×3 (05:48→21:36)
[2018-02-06] MEDS: Nystatin Powder 15gm Bottle 1 APPLIC TOPICAL ×2 (05:49→21:36)
[2018-02-06 06:31] LABS: Hematocrit 30.8 % (37-47); Hemoglobin 9.9 g/dl (12.0-15.0); Mean Corp Hgb Conc 32.1 g/gl (32-36); Mean Corpuscular Hgb 30.2 pg (27.0-32.0); Mean Corpuscular Volume 93.9 fL (81-99); Mean Platelet Vol. 9.4 fl (6.2-12.0); Platelet Count 201 K/mm3 (150-450); RBC Distribution Width CV 13.7 % (11.6-14.6); RBC Distribution Width SD 44.9 fl (35.1-43.9); Red Blood Count 3.28 M/mm3 (4.2-5.4); White Blood Count 2.9 K/mm3 (4.4-11.0)
[2018-02-06 06:32] LABS: Differential Indicated MANUAL DIFF; POSITIVE COUNT YES; POSITIVE DIFFERENTIAL YES; POSITIVE MORPHOLOGY YES
[2018-02-06 06:38] LABS: Anion Gap 8 (5-15); BUN 22 mg/dL (7-18); BUN/Creat Ratio 46.6 RATIO (10-20); Calcium,Total 8.5 mg/dL (8.5-10.1); Chloride 98 mmol/L (98-107); Creatinine, Serum 0.47 mg/dL (0.55-1.02); EST Glomerular Filtration Rate 137 mL/min (>60); Est Glom Filt Rate - Afr Amer 166 mL/min (>60); Glucose 95 mg/dL (74-106); Potassium 3.5 mmol/L (3.5-5.1); Sodium Level 137 mmol/L (136-145)
[2018-02-06 06:56] LABS: Bedside Glucose 98 mg/dL (70-110)
[2018-02-06 06:58] LABS: Eosinophil 2 % (0-5); Lymphocyte 16 % (19-41); Metamyelocyte 1 % (0-1); Monocyte 14 % (0-10); Neutrophil-Band 1 % (0-5); Neutrophil-Segmented 66 % (47-70); Total Cells Counted 100 (MANUAL DIFF)
[2018-02-06 06:59] LABS: Anisocytosis 1+; Hypochromasia 1+
[2018-02-06 07:00] LABS: Polychromasia 1+
[2018-02-06 07:02] LABS: Platelet Estimate ADEQUATE (ADEQ); Platelet Morphology LARGE
[2018-02-06 07:07] LABS: Absolute Lymphocyte Count 0.46 X10^3/ul (0.83-4.51); Absolute Neutrophil Count 1.9 X10^3/uL (2.0-7.7)
--- NOTE | 2018-02-06 07:41 | NURSING ---
THIS NURSE PULLED PT DYSON CATH AT [address] WALLACE.REPORTED TO SAMANTHA MITCHELL
[2018-02-06] MEDS: Aspirin E.C. 81 MG Tablet PO (08:11)
[2018-02-06] MEDS: Insulin Lispro 100 UNIT/ML INSULN.PEN 10 UNIT SC ×2 (08:14→12:08)
--- NOTE | 2018-02-06 11:28 | NURSING ---
AID CALLED THIS NURSE TO PT ROOM. PT RIGHT ANKLE RED AND SWOLLEN. PT STATES ANKLE HURTS WHEN TOUCHED. ASKED PT IF ANY THING HAPPENED TO FOOT OR ANKLE,PT STATED NO. REPORTED TO SAMANTHA MITCHELL
[2018-02-06 11:55] LABS: Bedside Glucose 159 mg/dL (70-110)
--- NOTE | 2018-02-06 14:04 | RAD_ITS ---
STUDY: X-RAY - RIGHT ANKLE REASON FOR EXAM: Female, 72 years old. Pain and swelling TECHNIQUE: 2 view(s) of the ankle. COMPARISON: None. FINDINGS: There is no evidence of fracture or dislocation. There are no significant degenerative changes. There are no radiodense foreign bodies. There is soft tissue swelling noted in the right ankle. RAD/Ankle 2 Views IMPRESSION: No fracture or dislocation. Soft tissue swelling. Electronically Signed: Zeke Storey, at 15:04 EST Tel , Service support ,
--- NOTE | 2018-02-06 15:05 | NURSING ---
wound photo: sacrum
[2018-02-06 16:00] VITALS: BP 136/70; PULSE 88; RESP 18; TEMP 36.5; O2SAT 100
[2018-02-06 16:16] LABS: Uric Acid 3.1 mg/dL (2.6-6.0)
[2018-02-06 16:21] LABS: Erythrocyte Sedimentation Rate 20 mm/hr (0-30)
[2018-02-06 17:06] LABS: Bedside Glucose 103 mg/dL (70-110)
--- NOTE | 2018-02-06 17:55 | NURSING ---
PT IS CRYING OUT IN PAIN IN HER BOTTOM AND ANKLE UP HER RIGHT LEG. PAIN MED WAS GIVEN EARLIER. REPORTED TO SAMANTHA MITCHELL
[2018-02-06] MEDS: MethylPREDNISolone DosePak 4 MG BOX PO ×2 (17:57→21:37)
[2018-02-06] MEDS: Tamsulosin HCl 0.4 MG Capsule PO (17:59)
[2018-02-06 21:06] LABS: Bedside Glucose 144 mg/dL (70-110)
[2018-02-06] MEDS: Gabapentin 300 MG Capsule PO (21:36)
[2018-02-06] MEDS: Atorvastatin Calcium 40 MG Tablet PO (21:36)
[2018-02-06] MEDS: Doxepin Hcl 25 MG Capsule PO (21:36)
[2018-02-07] MEDS: Senna/Docusate Sodium 1 Tablet 2 TABLET PO ×2 (05:40→17:42)
[2018-02-07] MEDS: Nystatin Powder 15gm Bottle 1 APPLIC TOPICAL ×2 (05:40→21:49)
[2018-02-07] MEDS: BETHANECHOL CHLORIDE 25 MG TABLET PO ×4 (05:40→21:47)
[2018-02-07] MEDS: Pantoprazole Sodium 20 MG Tablet PO (05:40)
[2018-02-07] MEDS: Bisacodyl 5 MG Tablet 10 MG PO (05:40)
[2018-02-07] MEDS: Menthol/Lanolin/Calamine/Znox 113 GM Tube 1 APPLIC TOPICAL ×3 (05:41→21:49)
[2018-02-07] MEDS: Enoxaparin 30 MG/0.3 ML Syringe SC (05:41)
[2018-02-07] MEDS: oxyCODONE 5 MG Tablet 20 MG PO ×3 (05:45→21:47)
[2018-02-07 06:51] LABS: Bedside Glucose 188 mg/dL (70-110)
--- NOTE | 2018-02-07 06:54 | NURSING ---
pt denies having to void at this time. pt bladder scan for 299.
[2018-02-07] MEDS: Insulin Lispro 100 UNIT/ML INSULN.PEN 10 UNIT SC ×3 (08:56→17:43)
[2018-02-07] MEDS: Aspirin E.C. 81 MG Tablet PO (08:56)
[2018-02-07] MEDS: MethylPREDNISolone DosePak 4 MG BOX PO ×4 (08:56→21:47)
--- NOTE | 2018-02-07 15:28 | NURSING ---
Repositioned onto Rt side but was unable to tolerate. Refused to lay on Side despite multiple attempts of trying to position pillows and pt onto side. Wanted back on her back.
[2018-02-07 15:31] VITALS: PULSE 88
[2018-02-07 15:37] VITALS: BP 114/64; PULSE 92; RESP 14; TEMP 37.1; O2SAT 94
--- NOTE | 2018-02-07 16:06 | NURSING ---
Aware of Vital Signs taken today at 1537.
[2018-02-07 16:55] LABS: Bedside Glucose 153 mg/dL (70-110)
[2018-02-07] MEDS: Tamsulosin HCl 0.4 MG Capsule PO (17:33)
--- NOTE | 2018-02-07 21:00 | NURSING ---
Pt lying flat on her back. Pt due to be repositioned. Pt refused stating she is comfortable right now and does not want to be moved. Educated on importance of being repositioned Q2 hours to help sore on bottom. Pt resting in bed with call light in reach.
[2018-02-07 21:11] LABS: Bedside Glucose 103 mg/dL (70-110)
[2018-02-07] MEDS: Montelukast 10 MG Tablet PO (21:47)
[2018-02-07] MEDS: Atorvastatin Calcium 40 MG Tablet PO (21:47)
[2018-02-07] MEDS: Doxepin Hcl 25 MG Capsule PO (21:47)
[2018-02-07] MEDS: Gabapentin 300 MG Capsule PO (21:47)
[2018-02-08 04:30] LABS: Mucous, Urine 0 SEEN /hpf (<or=2+); Squamous Epithelial Cells - UA 0 SEEN /hpf (5-10)
[2018-02-08 04:32] LABS: Glucose, Dipstick Normal (Normal); Ketone-Dipstick Negative (Negative); Leukocyte Esterase-Dipstick 500 /ul (Negative); Nitrite-Dipstick Positive (Negative); Occult Blood-Urine 25 /ul (Negative); Protein-Dipstick 30 mg/dl (Negative); Urine Bilirubin Dipstick Negative (Negative); Urine Clarity Cloudy (Clear); Urine Urobilinogen Normal (Normal)
[2018-02-08 04:52] LABS: Bacteria 3+ /hpf (None Seen); White Blood Cells 50-100 SEEN /hpf (0-5)
[2018-02-08 04:53] LABS: Red Blood Cells-Urine 0-5 SEEN /hpf (0-5)
[2018-02-08 04:54] LABS: Color, Urine Yellow (Yellow)
[2018-02-08] MEDS: oxyCODONE 5 MG Tablet 20 MG PO ×3 (06:31→18:52)
[2018-02-08] MEDS: Pantoprazole Sodium 20 MG Tablet PO (06:31)
[2018-02-08] MEDS: Senna/Docusate Sodium 1 Tablet 2 TABLET PO (06:31)
[2018-02-08] MEDS: BETHANECHOL CHLORIDE 25 MG TABLET PO ×4 (06:32→22:06)
[2018-02-08] MEDS: Enoxaparin 30 MG/0.3 ML Syringe SC (06:32)
[2018-02-08] MEDS: Menthol/Lanolin/Calamine/Znox 113 GM Tube 1 APPLIC TOPICAL ×3 (06:36→22:08)
[2018-02-08] MEDS: Nystatin Powder 15gm Bottle 1 APPLIC TOPICAL ×2 (06:37→22:07)
[2018-02-08 06:40] LABS: Bedside Glucose 103 mg/dL (70-110)
[2018-02-08] MEDS: Insulin Lispro 100 UNIT/ML INSULN.PEN 10 UNIT SC ×3 (08:38→18:03)
[2018-02-08] MEDS: MethylPREDNISolone DosePak 4 MG BOX PO ×4 (08:39→22:05)
[2018-02-08] MEDS: Aspirin E.C. 81 MG Tablet PO (08:39)
--- NOTE | 2018-02-08 09:33 | NURSING ---
pt st cathed last night UA sent to lab, postive results called to Dr Craig this AM. new order to start macrobid BID. urine culture pending. pt has been refusing glucerna, new order to DC
[2018-02-08] MEDS: Nitrofurantoin Macrocrystals 100 MG Capsule PO ×2 (10:55→18:50)
[2018-02-08 11:41] LABS: Bedside Glucose 224 mg/dL (70-110)
[2018-02-08 16:00] VITALS: BP 102/63; PULSE 89; RESP 16; TEMP 36.7; O2SAT 95
[2018-02-08 17:06] LABS: Bedside Glucose 126 mg/dL (70-110)
[2018-02-08] MEDS: Tamsulosin HCl 0.4 MG Capsule PO (18:04)
[2018-02-08 21:11] LABS: Bedside Glucose 144 mg/dL (70-110)
[2018-02-08] MEDS: Doxepin Hcl 25 MG Capsule PO (22:05)
[2018-02-08] MEDS: Montelukast 10 MG Tablet PO (22:05)
[2018-02-08] MEDS: Gabapentin 300 MG Capsule PO (22:06)
[2018-02-08] MEDS: Atorvastatin Calcium 40 MG Tablet PO (22:06)
--- NOTE | 2018-02-08 22:38 | NURSING ---
Pt bladder scanned for 632. Pt unable to void. Numerous interventions attempted. Armendariz cath inserted. Immediate return of 750ml of cloudy, foul smelling urine. Pt tolerated well.
[2018-02-09] MEDS: BETHANECHOL CHLORIDE 25 MG TABLET PO ×4 (06:02→20:42)
[2018-02-09] MEDS: Pantoprazole Sodium 20 MG Tablet PO (06:02)
[2018-02-09] MEDS: oxyCODONE 5 MG Tablet 20 MG PO ×3 (06:02→19:24)
[2018-02-09] MEDS: Senna/Docusate Sodium 1 Tablet 2 TABLET PO ×2 (06:02→17:28)
[2018-02-09] MEDS: Nitrofurantoin Macrocrystals 100 MG Capsule PO ×2 (06:02→17:28)
[2018-02-09] MEDS: Enoxaparin 30 MG/0.3 ML Syringe SC (06:02)
[2018-02-09] MEDS: Nystatin Powder 15gm Bottle 1 APPLIC TOPICAL ×2 (06:04→20:45)
[2018-02-09] MEDS: Menthol/Lanolin/Calamine/Znox 113 GM Tube 1 APPLIC TOPICAL ×3 (06:04→20:47)
--- NOTE | 2018-02-09 06:40 | NURSING ---
Pt refusing to be turned numerous times throughout the night. Pt stating it is not comfortable and she prefers to be on her back.
[2018-02-09 06:45] LABS: Bedside Glucose 123 mg/dL (70-110)
[2018-02-09] MEDS: Aspirin E.C. 81 MG Tablet PO (08:53)
[2018-02-09] MEDS: MethylPREDNISolone DosePak 4 MG BOX PO ×3 (08:53→20:40)
[2018-02-09] MEDS: Insulin Lispro 100 UNIT/ML INSULN.PEN 10 UNIT SC ×3 (08:55→17:27)
[2018-02-09 11:45] LABS: Bedside Glucose 167 mg/dL (70-110)
[2018-02-09 12:54] LABS: Pathologist Review Reviewed
[2018-02-09 15:21] VITALS: BP 111/64; PULSE 95; RESP 22; TEMP 36.6; O2SAT 92
[2018-02-09 16:56] LABS: Bedside Glucose 226 mg/dL (70-110)
[2018-02-09] MEDS: Tamsulosin HCl 0.4 MG Capsule PO (17:29)
[2018-02-09] MEDS: Atorvastatin Calcium 40 MG Tablet PO (20:42)
[2018-02-09] MEDS: Doxepin Hcl 25 MG Capsule PO (20:44)
[2018-02-09] MEDS: Montelukast 10 MG Tablet PO (20:44)
[2018-02-09] MEDS: Gabapentin 300 MG Capsule PO (20:44)
[2018-02-09 21:26] LABS: Bedside Glucose 219 mg/dL (70-110)
[2018-02-10] MEDS: Nystatin Powder 15gm Bottle 1 APPLIC TOPICAL ×2 (06:00→20:39)
[2018-02-10] MEDS: Nitrofurantoin Macrocrystals 100 MG Capsule PO ×2 (06:01→17:45)
[2018-02-10] MEDS: Enoxaparin 30 MG/0.3 ML Syringe SC (06:01)
[2018-02-10] MEDS: Pantoprazole Sodium 20 MG Tablet PO (06:01)
[2018-02-10] MEDS: Senna/Docusate Sodium 1 Tablet 2 TABLET PO ×2 (06:02→17:45)
[2018-02-10] MEDS: Bisacodyl 5 MG Tablet 10 MG PO (06:02)
[2018-02-10] MEDS: BETHANECHOL CHLORIDE 25 MG TABLET PO ×4 (06:02→20:39)
[2018-02-10] MEDS: Menthol/Lanolin/Calamine/Znox 113 GM Tube 1 APPLIC TOPICAL (06:03)
[2018-02-10] MEDS: oxyCODONE 5 MG Tablet 20 MG PO ×4 (06:05→20:37)
[2018-02-10 06:45] LABS: Bedside Glucose 136 mg/dL (70-110)
[2018-02-10] MEDS: Aspirin E.C. 81 MG Tablet PO (08:49)
[2018-02-10] MEDS: MethylPREDNISolone DosePak 4 MG BOX PO ×2 (08:49→20:39)
[2018-02-10] MEDS: Insulin Lispro 100 UNIT/ML INSULN.PEN 10 UNIT SC ×3 (08:50→17:45)
--- NOTE | 2018-02-10 11:08 | CASEMGMT ---
Addendum entered by Rosana Bhat 02/10/18 11:58: Reviewed and approved social work student [employer] documentation. MARQUES Hart, [employer] Original Note: Brief interview for mental status (BIMS) and mood (PHQ-9) completed on this day. BIMS score 15/15. PHQ-9 score /. Herberth Mosqueda social work student
[2018-02-10 11:21] LABS: Bedside Glucose 177 mg/dL (70-110)
--- NOTE | 2018-02-10 13:19 | NURSING ---
DR KELSEY NOTIFIED OF PT NEEDING DYSON REINSERTED D/T URINARY RETENTION AND UNABLE TO VOID. WANTS PT TO F/U AFTER TCU D/C. DO NOT REMOVE.
--- NOTE | 2018-02-10 14:27 | NURSING ---
wound photo: sacrum
[2018-02-10 15:55] VITALS: BP 125/71; PULSE 106; RESP 20; TEMP 36; O2SAT 95
--- NOTE | 2018-02-10 16:42 | NURSING ---
RETURNED FROM DR CRAIG, APPT NO NEW ORDERS. F/U IN FEB FOR LABS
[2018-02-10 17:01] LABS: Bedside Glucose 242 mg/dL (70-110)
[2018-02-10] MEDS: Tamsulosin HCl 0.4 MG Capsule PO (17:45)
[2018-02-10 20:26] VITALS: PULSE 92; O2SAT 97
[2018-02-10] MEDS: Atorvastatin Calcium 40 MG Tablet PO (20:39)
[2018-02-10] MEDS: Montelukast 10 MG Tablet PO (20:39)
[2018-02-10] MEDS: Gabapentin 300 MG Capsule PO (20:39)
[2018-02-10] MEDS: Doxepin Hcl 25 MG Capsule PO (20:39)
[2018-02-10 21:26] LABS: Bedside Glucose 97 mg/dL (70-110)
[2018-02-11] MEDS: oxyCODONE 5 MG Tablet 20 MG PO ×4 (01:49→22:58)
[2018-02-11] MEDS: Senna/Docusate Sodium 1 Tablet 2 TABLET PO ×2 (06:03→17:07)
[2018-02-11] MEDS: Bisacodyl 5 MG Tablet 10 MG PO (06:03)
[2018-02-11] MEDS: Nitrofurantoin Macrocrystals 100 MG Capsule PO ×2 (06:03→17:07)
[2018-02-11] MEDS: Enoxaparin 30 MG/0.3 ML Syringe SC (06:03)
[2018-02-11] MEDS: Nystatin Powder 15gm Bottle 1 APPLIC TOPICAL ×2 (06:03→22:58)
[2018-02-11] MEDS: Pantoprazole Sodium 20 MG Tablet PO (06:03)
[2018-02-11] MEDS: BETHANECHOL CHLORIDE 25 MG TABLET PO ×4 (06:03→22:58)
[2018-02-11 06:50] LABS: Bedside Glucose 134 mg/dL (70-110)
[2018-02-11] MEDS: Insulin Lispro 100 UNIT/ML INSULN.PEN 10 UNIT SC ×2 (07:49→11:57)
[2018-02-11] MEDS: MethylPREDNISolone DosePak 4 MG BOX PO (08:25)
[2018-02-11] MEDS: Aspirin E.C. 81 MG Tablet PO (08:27)
[2018-02-11 11:06] LABS: Bedside Glucose 190 mg/dL (70-110)
[2018-02-11 15:49] VITALS: BP 119/70; PULSE 93; RESP 18; TEMP 37.4; O2SAT 96
[2018-02-11 17:00] VITALS: TEMP 36.7
[2018-02-11 17:00] LABS: Bedside Glucose 94 mg/dL (70-110)
[2018-02-11] MEDS: Tamsulosin HCl 0.4 MG Capsule PO (17:07)
[2018-02-11] MEDS: Polyethylene Glycol 3350 17 GM PACKET PO (17:07)
[2018-02-11 18:06] LABS: Bedside Glucose 118 mg/dL (70-110)
[2018-02-11 21:06] LABS: Bedside Glucose 184 mg/dL (70-110)
[2018-02-11 22:45] VITALS: PULSE 86; RESP 16; O2SAT 95
[2018-02-11] MEDS: Montelukast 10 MG Tablet PO (22:57)
[2018-02-11] MEDS: Gabapentin 300 MG Capsule PO (22:57)
[2018-02-11] MEDS: Doxepin Hcl 25 MG Capsule PO (22:57)
[2018-02-11] MEDS: Atorvastatin Calcium 40 MG Tablet PO (22:58)
[2018-02-12] MEDS: Enoxaparin 30 MG/0.3 ML Syringe SC (06:00)
[2018-02-12] MEDS: BETHANECHOL CHLORIDE 25 MG TABLET PO ×4 (06:02→20:13)
[2018-02-12] MEDS: Nitrofurantoin Macrocrystals 100 MG Capsule PO ×2 (06:02→18:51)
[2018-02-12] MEDS: Senna/Docusate Sodium 1 Tablet 2 TABLET PO ×2 (06:02→16:31)
[2018-02-12] MEDS: Pantoprazole Sodium 20 MG Tablet PO (06:02)
[2018-02-12] MEDS: Bisacodyl 5 MG Tablet 10 MG PO (06:02)
[2018-02-12] MEDS: oxyCODONE 5 MG Tablet 20 MG PO ×4 (06:03→18:50)
[2018-02-12] MEDS: Nystatin Powder 15gm Bottle 1 APPLIC TOPICAL ×2 (06:04→20:13)
[2018-02-12 06:35] LABS: Bedside Glucose 94 mg/dL (70-110)
[2018-02-12] MEDS: Aspirin E.C. 81 MG Tablet PO (08:08)
[2018-02-12] MEDS: Insulin Lispro 100 UNIT/ML INSULN.PEN 10 UNIT SC (08:08)
[2018-02-12 10:00] VITALS: RESP 16
[2018-02-12 11:25] LABS: Bedside Glucose 141 mg/dL (70-110)
--- NOTE | 2018-02-12 14:50 | NURSING ---
Patient has c/o severe back pain, oxyir not effective. Dr. Craig notified. NO to give extra dose of 20mg oxyir x1. Patient updated.
[2018-02-12 15:32] VITALS: BP 127/70; PULSE 93; RESP 20; TEMP 36.4; O2SAT 93
[2018-02-12] MEDS: Tamsulosin HCl 0.4 MG Capsule PO (16:31)
[2018-02-12 17:06] LABS: Bedside Glucose 91 mg/dL (70-110)
[2018-02-12] MEDS: Polyethylene Glycol 3350 17 GM PACKET PO (18:51)
--- NOTE | 2018-02-12 19:49 | NURSING ---
Blood sugar was 94 before dinner, she didn't eat much, held humalog but gave lantus.
[2018-02-12] MEDS: Atorvastatin Calcium 40 MG Tablet PO (20:13)
[2018-02-12] MEDS: Gabapentin 300 MG Capsule PO (20:14)
[2018-02-12] MEDS: Doxepin Hcl 25 MG Capsule PO (20:14)
[2018-02-12] MEDS: Montelukast 10 MG Tablet PO (20:15)
--- NOTE | 2018-02-12 20:45 | NURSING ---
Pt c/o having 10+ pain tonight, crying in pain, and stating nothing is working. Dr. Craig aware and new orders for fentanyl patch, 30mg oxyir X1, 500mg depakote X1, and 500mg depakote BID. Pt updated on all. Will continue to monitor.
[2018-02-12] MEDS: fentaNYL 25 MCG Patch TRANSDERM. (21:04)
[2018-02-12] MEDS: oxyCODONE 5 MG Tablet 30 MG PO (21:18)
[2018-02-12] MEDS: Divalproex Sodium 250 MG Tablet 500 MG PO (21:20)
[2018-02-12 21:31] LABS: Bedside Glucose 154 mg/dL (70-110)
[2018-02-13] MEDS: oxyCODONE 5 MG Tablet 20 MG PO ×4 (06:06→20:37)
[2018-02-13] MEDS: Polyethylene Glycol 3350 17 GM PACKET PO ×2 (06:08→17:56)
[2018-02-13] MEDS: Pantoprazole Sodium 20 MG Tablet PO (06:09)
[2018-02-13] MEDS: Nitrofurantoin Macrocrystals 100 MG Capsule PO ×2 (06:09→17:55)
[2018-02-13] MEDS: Senna/Docusate Sodium 1 Tablet 2 TABLET PO ×2 (06:09→17:56)
[2018-02-13] MEDS: Bisacodyl 5 MG Tablet 10 MG PO (06:10)
[2018-02-13] MEDS: BETHANECHOL CHLORIDE 25 MG TABLET PO ×4 (06:10→20:34)
[2018-02-13] MEDS: Nystatin Powder 15gm Bottle 1 APPLIC TOPICAL ×2 (06:11→20:40)
[2018-02-13] MEDS: Enoxaparin 30 MG/0.3 ML Syringe SC (06:11)
[2018-02-13 06:18] LABS: Hematocrit 34.5 % (37-47); Hemoglobin 11.2 g/dl (12.0-15.0); Mean Corp Hgb Conc 32.5 g/gl (32-36); Mean Corpuscular Hgb 30.3 pg (27.0-32.0); Mean Corpuscular Volume 93.2 fL (81-99); Mean Platelet Vol. 9.1 fl (6.2-12.0); Platelet Count 436 K/mm3 (150-450); RBC Distribution Width CV 13.9 % (11.6-14.6); RBC Distribution Width SD 46.1 fl (35.1-43.9); White Blood Count 6.2 K/mm3 (4.4-11.0)
[2018-02-13 06:19] LABS: Differential Indicated MANUAL DIFF; POSITIVE COUNT YES; POSITIVE DIFFERENTIAL NO; POSITIVE MORPHOLOGY YES
[2018-02-13 06:42] LABS: Eosinophil 2 % (0-5); Lymphocyte 21 % (19-41); Metamyelocyte 3 % (0-1); Monocyte 11 % (0-10); Neutrophil-Band 7 % (0-5); Neutrophil-Segmented 56 % (47-70); Total Cells Counted 100 (MANUAL DIFF)
[2018-02-13 06:43] LABS: Anisocytosis 1+; Hypochromasia 1+; Microcytosis 1+; Platelet Estimate ADEQUATE (ADEQ); Platelet Morphology LARGE; Polychromasia 1+
[2018-02-13 06:45] LABS: Absolute Neutrophil Count 3.9 X10^3/uL (2.0-7.7)
[2018-02-13 06:52] LABS: Anion Gap 10 (5-15); BUN 25 mg/dL (7-18); BUN/Creat Ratio 51.5 RATIO (10-20); Chloride 96 mmol/L (98-107); Creatinine, Serum 0.48 mg/dL (0.55-1.02); EST Glomerular Filtration Rate 133 mL/min (>60); Est Glom Filt Rate - Afr Amer 161 mL/min (>60); Glucose 98 mg/dL (74-106); Potassium 4.3 mmol/L (3.5-5.1); Sodium Level 134 mmol/L (136-145)
[2018-02-13 07:51] LABS: Bedside Glucose 113 mg/dL (70-110)
[2018-02-13] MEDS: Aspirin E.C. 81 MG Tablet PO (08:57)
[2018-02-13] MEDS: Divalproex Sodium 250 MG Tablet 500 MG PO ×2 (08:57→17:54)
--- NOTE | 2018-02-13 10:01 | NURSING ---
MARCIANO approached this nurse and stated that pt refused therapy session at this time.
[2018-02-13 11:35] LABS: Bedside Glucose 189 mg/dL (70-110)
--- NOTE | 2018-02-13 15:06 | NURSING ---
pt only consumed bites of breakfast and refused lunch. Routine insulin held d/t this. Pt very painful in bottom and back. Repositioned often with minimal effect. Medicated with PRN OxyIR with some relief stated. Pt also given ice pack for lower back and pt states it helped some, will continue to closely monitor pain control.
[2018-02-13 15:13] VITALS: BP 118/68; PULSE 100; RESP 18; TEMP 36.7; O2SAT 95
--- NOTE | 2018-02-13 16:30 | NURSING ---
pt refused to be turned and repositioned at this time, pt is resting on left side and afraid if she is repositioned her pain will increase again. Education provided on importance of turning and repositioning often but pt declined. Daughter in visiting at this time. Pt resting comfortably, will continue to monitor.
[2018-02-13 16:55] LABS: Bedside Glucose 108 mg/dL (70-110)
[2018-02-13] MEDS: Tamsulosin HCl 0.4 MG Capsule PO (17:54)
[2018-02-13] MEDS: Magnesium Citrate 300 ML PO (17:54)
[2018-02-13] MEDS: Atorvastatin Calcium 40 MG Tablet PO (20:34)
[2018-02-13] MEDS: Doxepin Hcl 25 MG Capsule PO (20:34)
[2018-02-13] MEDS: Montelukast 10 MG Tablet PO (20:34)
[2018-02-13] MEDS: Gabapentin 300 MG Capsule PO (20:41)
[2018-02-13 21:10] LABS: Bedside Glucose 156 mg/dL (70-110)
[2018-02-13 22:36] LABS: Bedside Glucose 182 mg/dL (70-110)
--- NOTE | 2018-02-14 00:30 | NURSING ---
Duragesic patch intact to Lt chest.
[2018-02-14] MEDS: oxyCODONE 5 MG Tablet 20 MG PO ×4 (06:02→22:37)
[2018-02-14] MEDS: Senna/Docusate Sodium 1 Tablet 2 TABLET PO ×2 (06:02→17:06)
[2018-02-14] MEDS: Bisacodyl 5 MG Tablet 10 MG PO (06:03)
[2018-02-14] MEDS: Pantoprazole Sodium 20 MG Tablet PO (06:03)
[2018-02-14] MEDS: BETHANECHOL CHLORIDE 25 MG TABLET PO ×4 (06:03→20:38)
[2018-02-14] MEDS: Nitrofurantoin Macrocrystals 100 MG Capsule PO ×2 (06:03→17:06)
[2018-02-14] MEDS: Polyethylene Glycol 3350 17 GM PACKET PO ×2 (06:03→17:07)
[2018-02-14] MEDS: Enoxaparin 30 MG/0.3 ML Syringe SC (06:03)
[2018-02-14] MEDS: Nystatin Powder 15gm Bottle 1 APPLIC TOPICAL ×2 (06:22→20:38)
--- NOTE | 2018-02-14 06:23 | NURSING ---
Pt still with no BM after drinking mag citrate last HS. Pt passing flatulence. Pt refusing soap suds enema at this time d/t pain. Pt repositioned numerous times throughout the night d/t being uncomfortable and pain. Pt complaint of pain to coccyx 10, Rt shoulder and wrist 10/10. Pain meds given at this time. Pt positioned on her left side with call light in reach. Will update Dr. Craig.
[2018-02-14 07:00] LABS: Bedside Glucose 99 mg/dL (70-110)
[2018-02-14] MEDS: Aspirin E.C. 81 MG Tablet PO (08:23)
[2018-02-14] MEDS: Divalproex Sodium 250 MG Tablet 500 MG PO ×2 (08:23→17:06)
[2018-02-14 11:21] LABS: Bedside Glucose 193 mg/dL (70-110)
[2018-02-14] MEDS: Insulin Lispro 100 UNIT/ML INSULN.PEN 10 UNIT SC (12:56)
[2018-02-14 16:00] VITALS: BP 103/56; PULSE 104; RESP 20; TEMP 36.3; O2SAT 92
[2018-02-14 16:46] LABS: Bedside Glucose 70 mg/dL (70-110)
[2018-02-14] MEDS: Tamsulosin HCl 0.4 MG Capsule PO (17:06)
--- NOTE | 2018-02-14 20:30 | NURSING ---
Dr Craig notified of pt refusing SSE. N.O. for R/S. Dr Craig also requested to inquire if pt if would like to go to inpatient hospice due to having high levels of pain. In to discuss hospice with pt with Maegan SINGH. Pt states I am not ready to go hospice right now. Will continue to monitor.
[2018-02-14] MEDS: Gabapentin 300 MG Capsule PO (20:38)
[2018-02-14] MEDS: Atorvastatin Calcium 40 MG Tablet PO (20:38)
[2018-02-14] MEDS: Doxepin Hcl 25 MG Capsule PO (20:39)
[2018-02-14] MEDS: Montelukast 10 MG Tablet PO (20:40)
[2018-02-14 21:06] LABS: Bedside Glucose 208 mg/dL (70-110)
[2018-02-14] MEDS: Clobetasol Propionate 0.05% Ointment 1 APPLIC TOPICAL (23:52)
[2018-02-15] MEDS: Polyethylene Glycol 3350 17 GM PACKET PO ×2 (05:07→17:47)
[2018-02-15] MEDS: Enoxaparin 30 MG/0.3 ML Syringe SC (05:07)
[2018-02-15] MEDS: Bisacodyl 5 MG Tablet 10 MG PO (05:07)
[2018-02-15] MEDS: Senna/Docusate Sodium 1 Tablet 2 TABLET PO ×2 (05:08→17:47)
[2018-02-15] MEDS: Nitrofurantoin Macrocrystals 100 MG Capsule PO ×2 (05:08→17:47)
[2018-02-15] MEDS: BETHANECHOL CHLORIDE 25 MG TABLET PO ×4 (05:08→20:31)
[2018-02-15] MEDS: Pantoprazole Sodium 20 MG Tablet PO (05:08)
[2018-02-15] MEDS: Nystatin Powder 15gm Bottle 1 APPLIC TOPICAL ×2 (05:10→20:38)
[2018-02-15 06:45] LABS: Bedside Glucose 151 mg/dL (70-110)
[2018-02-15] MEDS: oxyCODONE 5 MG Tablet 20 MG PO ×2 (08:08→17:53)
[2018-02-15] MEDS: Divalproex Sodium 250 MG Tablet 500 MG PO ×2 (08:08→17:47)
[2018-02-15] MEDS: Aspirin E.C. 81 MG Tablet PO (08:08)
[2018-02-15] MEDS: Insulin Lispro 100 UNIT/ML INSULN.PEN 10 UNIT SC (08:51)
[2018-02-15 11:20] LABS: Bedside Glucose 104 mg/dL (70-110)
[2018-02-15 15:45] VITALS: BP 100/61; PULSE 96; RESP 16; TEMP 35.7; O2SAT 92
[2018-02-15 17:06] LABS: Bedside Glucose 113 mg/dL (70-110)
[2018-02-15] MEDS: Tamsulosin HCl 0.4 MG Capsule PO (17:47)
[2018-02-15] MEDS: Bisacodyl 10 MG Suppository RECTAL (19:13)
--- NOTE | 2018-02-15 20:30 | NURSING ---
Pts new duragesic patch applied to right deltoid. Old duragesic was not on pts left chest at this time. Pt denied remembering if patch had fallen off today.
[2018-02-15] MEDS: Atorvastatin Calcium 40 MG Tablet PO (20:31)
[2018-02-15] MEDS: fentaNYL 25 MCG Patch TRANSDERM. (20:31)
[2018-02-15] MEDS: Montelukast 10 MG Tablet PO (20:31)
[2018-02-15] MEDS: Doxepin Hcl 25 MG Capsule PO (20:31)
[2018-02-15] MEDS: Gabapentin 300 MG Capsule PO (20:31)
[2018-02-15 21:26] LABS: Bedside Glucose 127 mg/dL (70-110)
[2018-02-16] MEDS: Nitrofurantoin Macrocrystals 100 MG Capsule PO ×2 (04:24→17:51)
[2018-02-16] MEDS: oxyCODONE 5 MG Tablet 20 MG PO ×4 (04:24→21:46)
[2018-02-16] MEDS: Pantoprazole Sodium 20 MG Tablet PO (04:24)
[2018-02-16] MEDS: BETHANECHOL CHLORIDE 25 MG TABLET PO ×4 (04:24→21:46)
[2018-02-16] MEDS: Enoxaparin 30 MG/0.3 ML Syringe SC (04:26)
[2018-02-16] MEDS: Nystatin Powder 15gm Bottle 1 APPLIC TOPICAL ×2 (04:30→21:47)
[2018-02-16 06:51] LABS: Bedside Glucose 93 mg/dL (70-110)
[2018-02-16] MEDS: Divalproex Sodium 250 MG Tablet 500 MG PO ×2 (08:38→17:50)
[2018-02-16] MEDS: Aspirin E.C. 81 MG Tablet PO (08:38)
[2018-02-16] MEDS: Clobetasol Propionate 0.05% Ointment 1 APPLIC TOPICAL (08:43)
--- NOTE | 2018-02-16 08:57 | MDS.RN ---
Information for the mds was obtained from review of the clinical record, interview of resident, staff, and direct observation of resident's care.
[2018-02-16 10:58] LABS: Pathologist Review Reviewed
[2018-02-16 11:10] LABS: Bedside Glucose 181 mg/dL (70-110)
--- NOTE | 2018-02-16 11:45 | NURSING ---
pt refused breakfast this AM when first offered. Insulin held per this d/t refusal and BS of 93. One hour later, pt stated she wanted breakfast and staff assisted with feeding. Pt consumed 75%.
--- NOTE | 2018-02-16 11:47 | NURSING ---
Duragesic patch to right deltoid present and intact at this time.
[2018-02-16 15:25] VITALS: BP 106/67; PULSE 93; RESP 16; TEMP 37.4; O2SAT 92
[2018-02-16 17:00] LABS: Bedside Glucose 115 mg/dL (70-110)
[2018-02-16] MEDS: Tamsulosin HCl 0.4 MG Capsule PO (17:50)
[2018-02-16] MEDS: Senna/Docusate Sodium 1 Tablet 2 TABLET PO (17:51)
--- NOTE | 2018-02-16 18:15 | VDUE_ITS ---
Reason For Study: Pain/swelling Right Proximal Left Proximal Right jugular vein is spontaneous, widely Left jugular vein is spontaneous, widely patent, phasic, with no intraluminal patent, phasic, with no intraluminal echogenicity noted. echogenicity noted. Right subclavian vein is spontaneous, widely Left subclavian vein is spontaneous, widely patent, phasic, with no intraluminal patent, phasic, with no intraluminal echogenicity noted. echogenicity noted. Right Lower Arm Left Arm Right radial vein is compressible. Left axillary vein is spontaneous, patent, Right ulnar vein is compressible. phasic, competent, compressible and Right Arm demonstrates augmentation. Right axillary vein is spontaneous, patent, Left brachial vein is compressible. phasic, competent, compressible and Left cephalic vein is compressible. demonstrates augmentation. Left basilic vein is compressible. Right brachial vein is compressible. Left Lower Arm Right cephalic vein is compressible. Left radial vein is compressible. Right basilic vein is compressible. Left ulnar vein is compressible. Interpretation Summary Deep veins of the upper extremities are bilaterally patent and compressible segmentally. There is no evidence of deep vein thrombosis on either side. The superficial veins of the upper extremities, the basilic and cephalic veins, are patent and compressible bilaterally. There is no evidence of superficial thrombophlebitis on either side involving the veins imaged. Ordering Physician: Lukas Craig Performed By: Denae Faulkner RVT ?
--- NOTE | 2018-02-16 18:16 | NURSING ---
pt c/o rt wrist pain with passive movement, edema noted. Dr Craig updated, new order for doppler BUE's.
--- NOTE | 2018-02-16 19:52 | PCM.TCUNOT ---
Subjective: Resident seen in bed, she states her pain is much better, although the pain is still there. I asked her what her goals of care were, and she said she wanted to finish therapy so she can start chemotherapy with Dr. Barnett for treatment of metastatic sarcoma. She did have wrist pain with swelling, order doppler ultrasound of bilateral upper extremity to evaluate for DVT. Vitals/I&O's: Vital Signs Temp Pulse Resp BP Pulse Ox 99.4 F H 93 16 106/67 92 02/16/18 15:25 02/16/18 15:25 02/16/18 15:25 02/16/18 15:25 02/16/18 15:25 Oxygen Flow Rate (L/min) 2 Oxygen Delivery Method Room Air Weight: 71.894 kg Body Mass Index (BMI) 24.2 Intake and Output for Last 24 Hours 02/14/18 02/15/18 02/16/18 23:59 23:59 23:59 Intake Total 420 / 420 450 / 450 360 / 360 Output Total 575 / 575 600 / 600 150 / 150 Balance -155 / -155 -150 / -150 210 / 210 Laboratory Results 02/13/18 05:24: Diff Path Review Reviewed 02/15/18 21:13: POC Glucose 127 H 02/16/18 06:24: POC Glucose 93 02/16/18 11:05: POC Glucose 181 H 02/16/18 16:54: POC Glucose 115 H 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) Medical History: Medical History (Last Updated 02/11/18 @ 12:30 by Joselyn Guerrero) 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 Skin ulcer of buttock, limited to breakdown of skin L98.411 Splenic artery aneurysm I72.8 s/p coil embolization 12/2001 Degenerative disc disease Mixed hyperlipidemia E78.2 Other spondylosis, thoracic region M47.894 Peripheral neuropathy G62.9 Radiculopathy of cervical spine M54.12 history of tumor excision parotid gland s/p radiation Allergies cephalexin [From Keflex] Allergy (Verified 02/10/18 15:41) Rash ciprofloxacin [From Cipro] Adverse Reaction (Verified 02/10/18 15:41) Rash erythromycin base Adverse Reaction (Verified 02/10/18 15:41) Rash Penicillins Adverse Reaction (Verified 02/10/18 15:41) Rash sulfamethoxazole [From Bactrim] Adverse Reaction (Verified 02/10/18 15:41) Rash trimethoprim [From Bactrim] Adverse Reaction (Verified 02/10/18 15:41) Rash Home Medications: Ambulatory Orders Medication Instructions Recorded Calcium Carbonate/Vitamin D3 1 tab PO DAILY 12/18/17 [Caltrate 600 Plus D3 Tablet] Cholecalciferol (Vitamin D3) 2,000 unit PO DAILY 01/04/18 [Vitamin D3] Montelukast Sodium 10 mg PO QHS 01/05/18 Amitriptyline HCl [Elavil] 10 mg PO QHS 01/22/18 Aspirin E.C. [Ecotrin] 81 mg PO DAILY@0800 01/22/18 Atorvastatin Calcium 40 mg PO QHS 01/22/18 Clobetasol Propionate [Temovate 1 applic TOPICAL DAILY 01/22/18 Ointment] Dexamethasone [Decadron] 4 mg PO BIDCM 01/22/18 Gabapentin [Neurontin] 300 mg PO QHS 01/22/18 Guaifenesin [Mucinex] 1,200 mg PO BID 01/22/18 Insulin Lispro [Humalog KwikPen] 15 unit SQ TIDCM 01/22/18 Lactulose [Chronulac, Cephulac] 20 gm PO TID 01/22/18 Loratadine/Pseudo 240/10 1 tablet PO DAILY PRN PRN 01/22/18 [Claritin-D 24 Hr] Nitroglycerin 0.4 mg SL X1 PRN 01/22/18 [place]-3 Fatty Acids [Fish Oil] 500 mg PO DAILY 01/22/18 Omeprazole [Prilosec] 20 mg PO DAILY 01/22/18 Oxycodone [Oxyir] 20 mg PO Q3H PRN 01/22/18 Senna/Docusate Sodium [Senokot-S, 2 tablet PO BID 01/22/18 Sheila-Colace] Sertraline HCl [Zoloft] 25 mg PO DAILY 01/22/18 Topiramate [Topamax] 25 mg PO QHS PRN PRN 01/22/18 traZODone [Desyrel] 50 mg PO QHS 01/22/18 Surgical History: Surgical History (Last Updated 02/10/18 @ 16:07 by Joselyn Guerrero) History of cholecystectomy Z90.49 History of hernia repair Z98.890, Z87.19 X 5 History of partial hysterectomy Z90.711 Surgical History: - - parotid surgery Psychiatric History: No pertinent psych hx CAD OPERATOR History: No pertinent CAD OPERATOR history Lives: Alone - lives in LTC facility. Smoking Status: Former smoker Tobacco Use: Non-smoker Alcohol: None Drugs: None - *Family History Maternal Family History: Family History (Last Updated 02/10/18 @ 16:09 by Joselyn Guerrero) Mother Basal cell carcinoma Heart disease Grandfather Kidney disease Heart disease Aunt Breast cancer Ovarian cancer Grandmother Breast cancer History Items: No pertinent history Paternal Family History: Family History (Last Updated 02/10/18 @ 16:09 by Joselyn Guerrero) Mother Basal cell carcinoma Heart disease Grandfather Kidney disease Heart disease Aunt Breast cancer Ovarian cancer Grandmother Breast cancer History Items: No pertinent history Review of Systems Constitutional: Denies: Chills, Fever, Weight Change HEENT: Denies: Head Aches, Sinus Congestion, Sinus Drainage Cardiovascular: Denies: Chest Pain, Palpitations Respiratory: Denies: Cough, Shortness of breath at rest, Sputum production Gastrointestinal: Denies: Abdominal Pain, Nausea, Vomiting Genitourinary: Denies: Dysuria Musculoskeletal: Denies: Joint Pain, Joint Tenderness Skin: Denies: Rash, Wounds Neurological: Denies: Numbness, Tingling, Focal weakness Psychiatric: Denies: Anxiety, Depression, Homicidal Ideations, Suicidal Ideations Hematologic/ Lymphatic: Denies: Easy Bruising, Easy Bleeding Patient Problems: Active and Suspected Problems (Last Updated 02/11/18 @ 12:30 by Joselyn Guerrero) Metastatic sarcoma (Acute) Stroke (Acute) Right hemiplegia (Acute) Urinary incontinence (Acute) - Physical Exam General: Alert, Oriented x3, Cooperative HEENT: Atraumatic, PERRLA, EOMI, Normocephalic Neck: Supple, No JVD, Negative Carotid Bruits Lungs: Clear to auscultation, Normal air movement Cardiovascular: Regular rate, No murmurs Abdomen: Bowel Sounds Present, Soft, Non Tender Extremities: No edema, Capillary Refill Less than 3 Seconds Skin: No rashes, No breakdown Musculoskeletal: No Tenderness to Palpation of Joints or Extremities Neurological: Cranial nerves II-XII grossly intact, - - Right sided weakness. Psych/Mental Status: Normal Affect, Appropriate Vital Signs Temp Pulse Resp BP Pulse Ox 99.4 F H 93 16 106/67 92 02/16/18 15:25 02/16/18 15:25 02/16/18 15:25 02/16/18 15:25 02/16/18 15:25 Oxygen Flow Rate (L/min) 2 Oxygen Delivery Method Room Air Weight: 71.894 kg Body Mass Index (BMI) 24.2 Intake and Output for Last 24 Hours 02/14/18 02/15/18 02/16/18 23:59 23:59 23:59 Intake Total 420 / 420 450 / 450 360 / 360 Output Total 575 / 575 600 / 600 150 / 150 Balance -155 / -155 -150 / -150 210 / 210 Laboratory Tests Past 24 Hrs 02/13/18 05:24 Diff Path Review Reviewed POC Glucose 02/16/18 02/16/18 02/16/18 16:54 11:05 06:24 POC Glucose 115 H 181 H 93 02/15/18 21:13 POC Glucose 127 H Assessment/Plan All Active Problems (Last Updated 02/11/18 @ 12:30 by Joselyn Guerrero) Acute chest pain (Acute) Metastatic sarcoma (Acute) Stroke (Acute) Right hemiplegia (Acute) Urinary incontinence (Acute) 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 Debility - PT/OT. Aphasia - ST. Pain - Fentanyl patch 25MCG Q72H, Oxycodone 20MG Q4H PRN severe pain, Depakote 500MG BID. Bowel - Miralax 17GM twice daily, Senna/colace 2 tablets BID, Dulcolax 10MG PO daily. Pneumonia vaccination - Administer Prevnar 13 and/or Pneumovax 23 as necessary. DVT prophylaxis - Lovenox 30MG SC daily. Stroke right hemiplegia - Aspirin 81MG daily. Hyperlipidemia - Atorvastatin 40MG QHS. Vaginitis - Temovate ointment daily PRN. Metastatic sarcoma - Chemotherapy when done with therapy, resident wants to pursue treatment, she is NOT ready for hospice. Neuropathic pain - Gabapentin 300MG QHS. Steroid induced Diabetes Mellitus - Lantus 15 units BID, Humalog 10 units TID. Allergic Rhinitis - Singulair 10MG QHS. GERD - Pantoprazole 20MG daily. Depression - Paroxetine 20MG QHS. Insomnia - Doxepin 25MG QHS. Urinary retention - Dr. Duke, indwelling austin catheter, Tamsulosin 0.4MG daily, Bethanechol 25MG 4x/day. E. Coli UTI - Macrobid 100MG BID thru 02/18/2018. Chest pain - NTG 0.4MG po daily PRN. Tinea Corporis - Nystatin powder BID groin, buttocks. Nausea - Zofran 4MG Q6H PRN.
--- NOTE | 2018-02-16 19:57 | PN_ITS ---
Subjective: Resident seen in bed, she states her pain is much better, although the pain is still there. I asked her what her goals of care were, and she said she wanted to finish therapy so she can start chemotherapy with Dr. Barnett for treatment of metastatic sarcoma. She did have wrist pain with swelling, order doppler ultrasound of bilateral upper extremity to evaluate for DVT. Vitals/I&O's: Vital Signs Temp Pulse Resp BP Pulse Ox 99.4 F H 93 16 106/67 92 02/16/18 15:25 02/16/18 15:25 02/16/18 15:25 02/16/18 15:25 02/16/18 15:25 Oxygen Flow Rate (L/min) 2 Oxygen Delivery Method Room Air Weight: 71.894 kg Body Mass Index (BMI) 24.2 Intake and Output for Last 24 Hours 02/14/18 02/15/18 02/16/18 23:59 23:59 23:59 Intake Total 420 / 420 450 / 450 360 / 360 Output Total 575 / 575 600 / 600 150 / 150 Balance -155 / -155 -150 / -150 210 / 210 Laboratory Results 02/13/18 05:24: Diff Path Review Reviewed 02/15/18 21:13: POC Glucose 127 H 02/16/18 06:24: POC Glucose 93 02/16/18 11:05: POC Glucose 181 H 02/16/18 16:54: POC Glucose 115 H 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) Medical History: Medical History (Last Updated 02/11/18 @ 12:30 by Joselyn Guerrero) 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 Skin ulcer of buttock, limited to breakdown of skin L98.411 Splenic artery aneurysm I72.8 s/p coil embolization 12/2001 Degenerative disc disease Mixed hyperlipidemia E78.2 Other spondylosis, thoracic region M47.894 Peripheral neuropathy G62.9 Radiculopathy of cervical spine M54.12 history of tumor excision parotid gland s/p radiation Allergies cephalexin [From Keflex] Allergy (Verified 02/10/18 15:41) Rash ciprofloxacin [From Cipro] Adverse Reaction (Verified 02/10/18 15:41) Rash erythromycin base Adverse Reaction (Verified 02/10/18 15:41) Rash Penicillins Adverse Reaction (Verified 02/10/18 15:41) Rash sulfamethoxazole [From Bactrim] Adverse Reaction (Verified 02/10/18 15:41) Rash trimethoprim [From Bactrim] Adverse Reaction (Verified 02/10/18 15:41) Rash Home Medications: Ambulatory Orders Medication Instructions Recorded Calcium Carbonate/Vitamin D3 1 tab PO DAILY 12/18/17 [Caltrate 600 Plus D3 Tablet] Cholecalciferol (Vitamin D3) 2,000 unit PO DAILY 01/04/18 [Vitamin D3] Montelukast Sodium 10 mg PO QHS 01/05/18 Amitriptyline HCl [Elavil] 10 mg PO QHS 01/22/18 Aspirin E.C. [Ecotrin] 81 mg PO DAILY@0800 01/22/18 Atorvastatin Calcium 40 mg PO QHS 01/22/18 Clobetasol Propionate [Temovate 1 applic TOPICAL DAILY 01/22/18 Ointment] Dexamethasone [Decadron] 4 mg PO BIDCM 01/22/18 Gabapentin [Neurontin] 300 mg PO QHS 01/22/18 Guaifenesin [Mucinex] 1,200 mg PO BID 01/22/18 Insulin Lispro [Humalog KwikPen] 15 unit SQ TIDCM 01/22/18 Lactulose [Chronulac, Cephulac] 20 gm PO TID 01/22/18 Loratadine/Pseudo 240/10 1 tablet PO DAILY PRN PRN 01/22/18 [Claritin-D 24 Hr] Nitroglycerin 0.4 mg SL X1 PRN 01/22/18 [place]-3 Fatty Acids [Fish Oil] 500 mg PO DAILY 01/22/18 Omeprazole [Prilosec] 20 mg PO DAILY 01/22/18 Oxycodone [Oxyir] 20 mg PO Q3H PRN 01/22/18 Senna/Docusate Sodium [Senokot-S, 2 tablet PO BID 01/22/18 Sheila-Colace] Sertraline HCl [Zoloft] 25 mg PO DAILY 01/22/18 Topiramate [Topamax] 25 mg PO QHS PRN PRN 01/22/18 traZODone [Desyrel] 50 mg PO QHS 01/22/18 Surgical History: Surgical History (Last Updated 02/10/18 @ 16:07 by Joselyn Guerrero) History of cholecystectomy Z90.49 History of hernia repair Z98.890, Z87.19 X 5 History of partial hysterectomy Z90.711 Surgical History: - - parotid surgery Psychiatric History: No pertinent psych hx RN CLINICAL COORDINATOR History: No pertinent RN CLINICAL COORDINATOR history Lives: Alone - lives in LTC facility. Smoking Status: Former smoker Tobacco Use: Non-smoker Alcohol: None Drugs: None - *Family History Maternal Family History: Family History (Last Updated 02/10/18 @ 16:09 by Joselyn Guerrero) Mother Basal cell carcinoma Heart disease Grandfather Kidney disease Heart disease Aunt Breast cancer Ovarian cancer Grandmother Breast cancer History Items: No pertinent history Paternal Family History: Family History (Last Updated 02/10/18 @ 16:09 by Joselyn Guerrero) Mother Basal cell carcinoma Heart disease Grandfather Kidney disease Heart disease Aunt Breast cancer Ovarian cancer Grandmother Breast cancer History Items: No pertinent history Review of Systems Constitutional: Denies: Chills, Fever, Weight Change HEENT: Denies: Head Aches, Sinus Congestion, Sinus Drainage Cardiovascular: Denies: Chest Pain, Palpitations Respiratory: Denies: Cough, Shortness of breath at rest, Sputum production Gastrointestinal: Denies: Abdominal Pain, Nausea, Vomiting Genitourinary: Denies: Dysuria Musculoskeletal: Denies: Joint Pain, Joint Tenderness Skin: Denies: Rash, Wounds Neurological: Denies: Numbness, Tingling, Focal weakness Psychiatric: Denies: Anxiety, Depression, Homicidal Ideations, Suicidal Ideations Hematologic/ Lymphatic: Denies: Easy Bruising, Easy Bleeding Patient Problems: Active and Suspected Problems (Last Updated 02/11/18 @ 12:30 by Joselyn Guerrero) Metastatic sarcoma (Acute) Stroke (Acute) Right hemiplegia (Acute) Urinary incontinence (Acute) - Physical Exam General: Alert, Oriented x3, Cooperative HEENT: Atraumatic, PERRLA, EOMI, Normocephalic Neck: Supple, No JVD, Negative Carotid Bruits Lungs: Clear to auscultation, Normal air movement Cardiovascular: Regular rate, No murmurs Abdomen: Bowel Sounds Present, Soft, Non Tender Extremities: No edema, Capillary Refill Less than 3 Seconds Skin: No rashes, No breakdown Musculoskeletal: No Tenderness to Palpation of Joints or Extremities Neurological: Cranial nerves II-XII grossly intact, - - Right sided weakness. Psych/Mental Status: Normal Affect, Appropriate Vital Signs Temp Pulse Resp BP Pulse Ox 99.4 F H 93 16 106/67 92 02/16/18 15:25 02/16/18 15:25 02/16/18 15:25 02/16/18 15:25 02/16/18 15:25 Oxygen Flow Rate (L/min) 2 Oxygen Delivery Method Room Air Weight: 71.894 kg Body Mass Index (BMI) 24.2 Intake and Output for Last 24 Hours 02/14/18 02/15/18 02/16/18 23:59 23:59 23:59 Intake Total 420 / 420 450 / 450 360 / 360 Output Total 575 / 575 600 / 600 150 / 150 Balance -155 / -155 -150 / -150 210 / 210 Laboratory Tests Past 24 Hrs 02/13/18 05:24 Diff Path Review Reviewed POC Glucose 02/16/18 02/16/18 02/16/18 16:54 11:05 06:24 POC Glucose 115 H 181 H 93 02/15/18 21:13 POC Glucose 127 H Assessment/Plan All Active Problems (Last Updated 02/11/18 @ 12:30 by Joselyn Guerrero) Acute chest pain (Acute) Metastatic sarcoma (Acute) Stroke (Acute) Right hemiplegia (Acute) Urinary incontinence (Acute) 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 * Debility - PT/OT. * Aphasia - ST. * Pain - Fentanyl patch 25MCG Q72H, Oxycodone 20MG Q4H PRN severe pain, Depakote 500MG BID. * Bowel - Miralax 17GM twice daily, Senna/colace 2 tablets BID, Dulcolax 10MG PO daily. * Pneumonia vaccination - Administer Prevnar 13 and/or Pneumovax 23 as necessary. * DVT prophylaxis - Lovenox 30MG SC daily. * Stroke right hemiplegia - Aspirin 81MG daily. * Hyperlipidemia - Atorvastatin 40MG QHS. * Vaginitis - Temovate ointment daily PRN. * Metastatic sarcoma - Chemotherapy when done with therapy, resident wants to pursue treatment, she is NOT ready for hospice. * Neuropathic pain - Gabapentin 300MG QHS. 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 * Allergic Rhinitis - Singulair 10MG QHS. * GERD - Pantoprazole 20MG daily. * Depression - Paroxetine 20MG QHS. * Insomnia - Doxepin 25MG QHS. * Urinary retention - Dr. Duke, indwelling austin catheter, Tamsulosin 0.4MG daily, Bethanechol 25MG 4x/day. * E. Coli UTI - Macrobid 100MG BID thru 02/18/2018. * Chest pain - NTG 0.4MG po daily PRN. * Tinea Corporis - Nystatin powder BID groin, buttocks. * Nausea - Zofran 4MG Q6H PRN.
[2018-02-16 21:15] LABS: Bedside Glucose 178 mg/dL (70-110)
[2018-02-16] MEDS: Montelukast 10 MG Tablet PO (21:45)
[2018-02-16] MEDS: Gabapentin 300 MG Capsule PO (21:45)
[2018-02-16] MEDS: Atorvastatin Calcium 40 MG Tablet PO (21:45)
[2018-02-16] MEDS: Doxepin Hcl 25 MG Capsule PO (21:46)
[2018-02-17] MEDS: Pantoprazole Sodium 20 MG Tablet PO (06:09)
[2018-02-17] MEDS: Nitrofurantoin Macrocrystals 100 MG Capsule PO ×2 (06:09→17:34)
[2018-02-17] MEDS: BETHANECHOL CHLORIDE 25 MG TABLET PO ×4 (06:09→20:50)
[2018-02-17] MEDS: Enoxaparin 30 MG/0.3 ML Syringe SC (06:09)
[2018-02-17] MEDS: Menthol/Lanolin/Calamine/Znox 113 GM Tube 1 APPLIC TOPICAL ×2 (06:09→20:54)
[2018-02-17] MEDS: Nystatin Powder 15gm Bottle 1 APPLIC TOPICAL ×2 (06:10→20:54)
[2018-02-17] MEDS: oxyCODONE 5 MG Tablet 20 MG PO ×2 (06:12→14:13)
[2018-02-17 06:21] LABS: Bedside Glucose 107 mg/dL (70-110)
[2018-02-17] MEDS: Aspirin E.C. 81 MG Tablet PO (08:12)
[2018-02-17] MEDS: Divalproex Sodium 250 MG Tablet 500 MG PO ×2 (08:12→17:34)
[2018-02-17 08:56] LABS: Bedside Glucose 175 mg/dL (70-110)
--- NOTE | 2018-02-17 09:13 | NURSING ---
Wound nurse here and assesed pt coccyx wound, wound culture sent. dr croft notified, new order for slaby consult.
[2018-02-17 09:30] VITALS: PULSE 97; RESP 16; O2SAT 94
--- NOTE | 2018-02-17 09:50 | NURSING ---
wound photo: sacrum
[2018-02-17 11:26] LABS: Bedside Glucose 278 mg/dL (70-110)
[2018-02-17 11:34] LABS: M R Staph aureus DNA By PCR Negative (Negative); Probe Check PASS; Specimen Processing Control PASS; Staph aureus DNA By PCR NEGATIVE (Negative)
[2018-02-17] MEDS: Insulin Lispro 100 UNIT/ML INSULN.PEN 10 UNIT SC (11:47)
--- NOTE | 2018-02-17 13:56 | NURSING ---
peripheral vascular tech reported negative doppler BUE's
--- NOTE | 2018-02-17 15:07 | NURSING ---
Dr Smith aware of consult.
[2018-02-17 15:55] VITALS: BP 113/60; PULSE 99; RESP 18; TEMP 36.7; O2SAT 91
[2018-02-17 17:15] LABS: Bedside Glucose 84 mg/dL (70-110)
[2018-02-17] MEDS: Tamsulosin HCl 0.4 MG Capsule PO (17:34)
[2018-02-17] MEDS: Senna/Docusate Sodium 1 Tablet 2 TABLET PO (17:34)
[2018-02-17 18:26] LABS: Bedside Glucose 138 mg/dL (70-110)
[2018-02-17] MEDS: Atorvastatin Calcium 40 MG Tablet PO (20:50)
[2018-02-17] MEDS: Doxepin Hcl 25 MG Capsule PO (20:51)
[2018-02-17] MEDS: Montelukast 10 MG Tablet PO (20:51)
[2018-02-17] MEDS: Gabapentin 300 MG Capsule PO (20:51)
[2018-02-17 21:00] LABS: Bedside Glucose 133 mg/dL (70-110)
[2018-02-18] MEDS: Pantoprazole Sodium 20 MG Tablet PO (05:58)
[2018-02-18] MEDS: Nystatin Powder 15gm Bottle 1 APPLIC TOPICAL ×2 (05:58→21:34)
[2018-02-18] MEDS: BETHANECHOL CHLORIDE 25 MG TABLET PO ×4 (05:58→21:33)
[2018-02-18] MEDS: Nitrofurantoin Macrocrystals 100 MG Capsule PO ×2 (05:58→18:34)
[2018-02-18] MEDS: Menthol/Lanolin/Calamine/Znox 113 GM Tube 1 APPLIC TOPICAL ×2 (05:58→21:33)
[2018-02-18] MEDS: Enoxaparin 30 MG/0.3 ML Syringe SC (05:59)
[2018-02-18] MEDS: Senna/Docusate Sodium 1 Tablet 2 TABLET PO ×2 (05:59→18:34)
[2018-02-18 06:41] LABS: Bedside Glucose 96 mg/dL (70-110)
[2018-02-18] MEDS: oxyCODONE 5 MG Tablet 20 MG PO ×2 (08:14→18:28)
[2018-02-18] MEDS: Aspirin E.C. 81 MG Tablet PO (08:16)
[2018-02-18] MEDS: Divalproex Sodium 250 MG Tablet 500 MG PO ×2 (08:16→18:34)
--- NOTE | 2018-02-18 08:16 | MDS.RN ---
Information for the mds was obtained from review of the clinical record, interview of resident, staff, and direct observation of resident's care.
[2018-02-18 11:56] LABS: Bedside Glucose 225 mg/dL (70-110)
[2018-02-18] MEDS: Insulin Lispro 100 UNIT/ML INSULN.PEN 10 UNIT SC (12:05)
[2018-02-18 16:00] VITALS: BP 111/63; PULSE 79; RESP 18; TEMP 36.2; O2SAT 95
[2018-02-18 17:10] LABS: Bedside Glucose 112 mg/dL (70-110)
--- NOTE | 2018-02-18 18:31 | NURSING ---
Per therapy, patient having increased pain and decreased tolerance for activity during therapy sessions. Increased weakness and confusion. Dr. Craig updated. Continue to monitor patient.
[2018-02-18] MEDS: Tamsulosin HCl 0.4 MG Capsule PO (18:34)
[2018-02-18] MEDS: fentaNYL 25 MCG Patch TRANSDERM. (21:26)
[2018-02-18 21:31] LABS: Bedside Glucose 105 mg/dL (70-110)
--- NOTE | 2018-02-18 21:32 | NURSING ---
New Duragesic patch applied to Left Shoulder.
[2018-02-18] MEDS: Atorvastatin Calcium 40 MG Tablet PO (21:34)
[2018-02-18] MEDS: Gabapentin 300 MG Capsule PO (21:34)
[2018-02-18] MEDS: Montelukast 10 MG Tablet PO (21:35)
[2018-02-18] MEDS: Doxepin Hcl 25 MG Capsule PO (21:35)
[2018-02-18 21:39] VITALS: PULSE 98; O2SAT 93
[2018-02-19] MEDS: Nystatin Powder 15gm Bottle 1 APPLIC TOPICAL ×2 (06:27→22:36)
[2018-02-19] MEDS: BETHANECHOL CHLORIDE 25 MG TABLET PO ×4 (06:27→22:36)
[2018-02-19] MEDS: Enoxaparin 30 MG/0.3 ML Syringe SC (06:27)
[2018-02-19] MEDS: Menthol/Lanolin/Calamine/Znox 113 GM Tube 1 APPLIC TOPICAL ×2 (06:27→22:36)
[2018-02-19] MEDS: Pantoprazole Sodium 20 MG Tablet PO (06:27)
[2018-02-19] MEDS: Senna/Docusate Sodium 1 Tablet 2 TABLET PO ×2 (06:28→18:29)
[2018-02-19] MEDS: oxyCODONE 5 MG Tablet 20 MG PO ×4 (06:29→22:37)
[2018-02-19 06:51] LABS: Bedside Glucose 89 mg/dL (70-110)
[2018-02-19] MEDS: Divalproex Sodium 250 MG Tablet 500 MG PO ×2 (09:02→18:29)
[2018-02-19] MEDS: Aspirin E.C. 81 MG Tablet PO (09:02)
[2018-02-19 10:46] LABS: Bedside Glucose 170 mg/dL (70-110)
--- NOTE | 2018-02-19 10:56 | NURSING ---
Cultures back from sacral wound. positive for pseudomonas. orders received for Dakins moistened gauze BID. discussed results with SAMANTHA Sherman and MELANIA Rojas.
--- NOTE | 2018-02-19 13:49 | CASEMGMT ---
Addendum entered by Rosana Bhat 02/19/18 13:57: Reviewed and approved social work student MDS documentation. Rosana Bhat, MARQUES, LOGISTICS ANALYTICS MANAGER Original Note: Addendum entered by Melba Mosqueda 02/19/18 13:54: PHQ-9 score 11/17. Original Note: Brief interview for mental status (BIMS) and mood (PHQ-9) completed on this day. BIMS score 13/15. PHQ-9 score 12/18. Herberth Mosqueda social work student
[2018-02-19 15:01] VITALS: BP 103/58; PULSE 95; RESP 12; TEMP 36.9; O2SAT 90
[2018-02-19 16:51] LABS: Bedside Glucose 127 mg/dL (70-110)
[2018-02-19] MEDS: Tamsulosin HCl 0.4 MG Capsule PO (18:29)
[2018-02-19 21:16] LABS: Bedside Glucose 221 mg/dL (70-110)
--- NOTE | 2018-02-19 21:42 | CON.PCM_ITS ---
Reason for Consult Date of Consultation: 02/19/18 Reason for Consultation: Sacral pressure sore. REFERRING PHYSICIAN: Dr. Craig. VISUAL JOURNALIST: Dr. Smith. History of Present Illness: The patient is a 72 year old F who has history of metastatic sarcoma and is confined to bed secondary to a stroke, developed a sacral pressure sore with some nonviable tissue present. She has pain in the area. The nurses have reported decrease appetite. Hospice has been discussed with the patient in the past, and she has been reluctant to proceed as she was thinking of pursuing further therapy. A wound culture was done recently which showed Pseudomonas. Antibiotics will be started with Levaquin. I was asked to evaluate this patient for surgical options for treatment. 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 Mixed hyperlipidemia E78.2 Other spondylosis, thoracic region M47.894 Peripheral neuropathy G62.9 Radiculopathy of cervical spine M54.12 Skin ulcer of buttock, limited to breakdown of skin L98.411 Splenic artery aneurysm I72.8 s/p coil embolization 12/2001 history of tumor excision parotid gland s/p radiation Allergies cephalexin [From Keflex] Allergy (Verified 02/10/18 15:41) Rash ciprofloxacin [From Cipro] Adverse Reaction (Verified 02/10/18 15:41) Rash erythromycin base Adverse Reaction (Verified 02/10/18 15:41) Rash Penicillins Adverse Reaction (Verified 02/10/18 15:41) Rash sulfamethoxazole [From Bactrim] Adverse Reaction (Verified 02/10/18 15:41) Rash trimethoprim [From Bactrim] Adverse Reaction (Verified 02/10/18 15:41) Rash Current Medications Aspirin (Ecotrin) 81 mg PO DAILY@0800 [facility] Atorvastatin Calcium (Lipitor) 40 mg PO QHS [facility] Bethanechol Chloride (Bethanechol Chloride) 25 mg PO 4X/DAY [facility] Bisacodyl (Dulcolax) 10 mg PO DAILY [facility] Calamine/Phenol (Calmoseptine Ointment) 1 applic TOPICAL 0600,2200 [facility]; Protocol Clobetasol Propionate (Temovate Ointment) 1 applic TOPICAL DAILY PRN PRN; Protocol [facility]) [facility] Doxepin HCl (Sinequan) 25 mg PO QHS [facility] Enoxaparin Sodium (Lovenox) 30 mg SC DAILY@0600 [facility] Fentanyl (Duragesic Patch) 25 mcg TRANSDERM. Q3D [facility] Gabapentin (Neurontin) 300 mg PO QHS [facility] Insulin Glargine (Lantus (Bk)) 15 units SC BID [facility] Insulin Human Lispro (Humalog Kwikpen ([facility])) 10 unit SC TIDCM [facility] Montelukast Sodium (Singulair) 10 mg PO QHS [facility] Nitroglycerin (Nitrostat) 0.4 mg SUBLINGUAL X1 PRN Nystatin (Mycostatin Powder) 1 applic TOPICAL 0600,2200 [facility]; Protocol Ondansetron HCl (Zofran Odt) 4 mg PO Q6H PRN Oxycodone HCl (Oxyir) 20 mg PO Q4H PRN Pantoprazole Sodium (Protonix) 20 mg PO DAILY [facility] Paroxetine HCl (Paxil) 20 mg PO QHS [facility] Polyethylene Glycol (Miralax) 17 gm PO BID [facility] Senna/Docusate Sodium (Senokot-S, Sheila-Colace) 2 tablet PO BID [facility] Sodium Hypochlorite (Dakins Solution 0.25% (1/2 Strength)) 1 applic TOPICAL BID [facility]; Protocol Tamsulosin HCl (Flomax) 0.4 mg PO DAILY@1730 [facility] Home Medications: Ambulatory Orders Medication Instructions Recorded Calcium Carbonate/Vitamin D3 1 tab PO DAILY 12/18/17 [Caltrate 600 Plus D3 Tablet] Cholecalciferol (Vitamin D3) 2,000 unit PO DAILY 01/04/18 [Vitamin D3] Montelukast Sodium 10 mg PO QHS 01/05/18 Amitriptyline HCl [Elavil] 10 mg PO QHS 01/22/18 Aspirin E.C. [Ecotrin] 81 mg PO DAILY@0800 01/22/18 Atorvastatin Calcium 40 mg PO QHS 01/22/18 Clobetasol Propionate [Temovate 1 applic TOPICAL DAILY 01/22/18 Ointment] Dexamethasone [Decadron] 4 mg PO BIDCM 01/22/18 Gabapentin [Neurontin] 300 mg PO QHS 01/22/18 Guaifenesin [Mucinex] 1,200 mg PO BID 01/22/18 Insulin Lispro [Humalog KwikPen] 15 unit SQ TIDCM 01/22/18 Lactulose [Chronulac, Cephulac] 20 gm PO TID 01/22/18 Loratadine/Pseudo 240/10 1 tablet PO DAILY PRN PRN 01/22/18 [Claritin-D 24 Hr] Nitroglycerin 0.4 mg SL X1 PRN 01/22/18 [place]-3 Fatty Acids [Fish Oil] 500 mg PO DAILY 01/22/18 Omeprazole [Prilosec] 20 mg PO DAILY 01/22/18 Oxycodone [Oxyir] 20 mg PO Q3H PRN 01/22/18 Senna/Docusate Sodium [Senokot-S, 2 tablet PO BID 01/22/18 Sheila-Colace] Sertraline HCl [Zoloft] 25 mg PO DAILY 01/22/18 Topiramate [Topamax] 25 mg PO QHS PRN PRN 01/22/18 traZODone [Desyrel] 50 mg PO QHS 01/22/18 Surgical History: Surgical History (Last Updated 02/10/18 @ 16:07 by Joselyn Guerrero) History of cholecystectomy Z90.49 History of hernia repair Z98.890, Z87.19 X 5 History of partial hysterectomy Z90.711 Surgical History: - - parotid surgery Psychiatric History: No pertinent psych hx HIGH SCHOOL PRINCIPAL History: No pertinent HIGH SCHOOL PRINCIPAL history Lives: Alone - lives in LTC facility. Smoking Status: Former smoker Tobacco Use: Non-smoker Alcohol: None Drugs: None - *Family History Maternal Family History: Family History (Last Updated 02/10/18 @ 16:09 by Joselyn Guerrero) Mother Basal cell carcinoma Heart disease Grandfather Kidney disease Heart disease Aunt Breast cancer Ovarian cancer Grandmother Breast cancer History Items: No pertinent history Paternal Family History: Family History (Last Updated 02/10/18 @ 16:09 by Joselyn Guerrero) Mother Basal cell carcinoma Heart disease Grandfather Kidney disease Heart disease Aunt Breast cancer Ovarian cancer Grandmother Breast cancer History Items: No pertinent history Review of Systems Comment: Constitutional:: Reports: Weakness - R upper and lower extremities.. Denies: Fever, Sweats. Cardiovascular:: Denies: Chest pain, Palpitations, D yspnea on exertion, Orthopnea, PND, Shortness of breath. Respiratory: Denies: Cough, Hemoptysis, Shortness of Breath, Wheezing. Gastrointestinal:: Denies: Abdominal pain, Nausea, Vomiting, Diarrhea, Constipation, Hematochezia. Genitourinary: Reports: -. Denies: Dysuria, Hematuria, Flank pain. Skin: Denies: Rash, Skin Changes, Wounds. Neurological:: Reports: Muscle weakness - R side-upper and lower extremities.. Denies: Headache, Dizziness, Visual changes, Tinnitus, Hearing loss. Psychiatric: Denies: Anxiety, Depression, Homicidal Ideations, Suicidal Ideations - Physical Exam General: Alert, Oriented x3, No apparent distress HEENT: Atraumatic, PERRLA, EOMI, Normocephalic Oropharynx:: Dry mucosa Neck:: Supple, nontender. No cervical adenopathy. Cardiac:: Regular rate, Regular rhythm. Lungs: Clear to auscultation. Abdomen:: Soft, Non-distended. Extremities:: Negative for: Cyanosis, Edema Neurological: Cranial nerves II-XII grossly intact, - - Right hemiparesis. Skin:: Has sacral pressure sore. Measures 2.5 x 1.5 cm. Some nonviable tissue present. Some greenish drainage. Recent wound culture showed Pseudomonas. No fluctuance. Surrounding redness in periwound area measures 6 x 6 cm. Psychiatric:: Appropriate affect. Lymphatics:: Negative for: Cervical lymphadenopathy, Supraclavicular lymphadenopathy, Axillary lymphadenopathy Vital Signs Temp Pulse Resp BP Pulse Ox 98.5 F 95 12 103/58 L 90 02/19/18 15:01 02/19/18 15:01 02/19/18 15:01 02/19/18 15:01 02/19/18 15:01 Oxygen Flow Rate (L/min) 2 Oxygen Delivery Method Room Air Weight: 152 lb 3.2 oz Body Mass Index (BMI) 24.2 Intake and Output for Last 24 Hours 02/17/18 02/18/18 02/19/18 23:59 23:59 23:59 Intake Total 370 / 370 410 / 410 530 / 530 Output Total 200 / 200 850 / 850 225 / 225 Balance 170 / 170 -440 / -440 305 / 305 Microbiology Past 72 Hours 02/17/18 09:10 Gram Stain - Final Wound - Sacral Wound Culture - Preliminary Pseudomonas spp Alpha Hemolytic Streptococcus Gram positive rogelio Anaerobic Culture - Preliminary Checking for anaerobes, further studies to follow. 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 2. Pseudomonas infection. 3. Metastatic sarcoma. 4. Diabetes mellitus. 5. Stroke with right hemiplegia. Recent wound culture showed Pseudomonas. Will change wound care to Dakin's to i mprove odor until surgical debridement is done. Will start her on Levaquin. Will obtain additional tissue cultures at surgery. If the pressure sore extends to the bone, a partial ostectomy would be done to evaluate for osteomyelitis. The pressure sore is unstageable at present. I suspect a Stage IV to involve at least the muscle if not the bone. Would like to obtain a CT Pelvis prior to the surgery. The patient has expressed interest in pursuing the surgical debridement. She understands the wound will not heal because of her decreased nutrition and the presence of metastatic cancer. Will check a Prealbumin and encourage nutritional supplementation with protein to help the healing process. The operative debridement would stabilize the wound and keep it clean and minimize further necrosis and associated mal odor. The nurses have stated that Hospice has been discussed with the patient. At present, she is interested in pursuing treatment. Patient was informed of the risks and complications of the procedure including alternatives to surgery. These were discussed with the patient personally. Patient voices understanding and wishes to proceed. Will tentatively schedule the operative debridement of this infected sacral pressure sore with nonviable tissue early next week on Friday or Friday. Code Visit Inpatient E&M: 48655 Init Hosp L2 - ICD-10 - L89.150, I96, A49.8, C79.89, E11.9, I63.9, G81.91
[2018-02-19] MEDS: Gabapentin 300 MG Capsule PO (22:35)
[2018-02-19] MEDS: Doxepin Hcl 25 MG Capsule PO (22:35)
[2018-02-19] MEDS: Atorvastatin Calcium 40 MG Tablet PO (22:36)
[2018-02-19] MEDS: Montelukast 10 MG Tablet PO (22:36)
--- NOTE | 2018-02-19 23:01 | NURSING ---
Addendum entered by Crystal Yanez 02/20/18 07:05: Attempt to contact daughter Lucy, not set up. Daughter Holly reached. Daughter Holly informed this nurse she will be in contact with her sister, Lucy. Holly will return call to TCU after discussing with Lucy a time to meet with Dr Craig. Original Note: Per dayshift report, Dr Craig will speak with pt tomorrow in regards to hospice. This nurse informed pt this evening Dr Craig will speak with her tomorrow about Hospice. Pt requesting daughters be present, will attempt to contact in AM. Pt expressed to this nurse she is in a lot of pain, pt medicated and repositioned. Pt informed this nurse she is having surgery on buttocks next week that could take over 3 months to heal. Therapeutic communication, TLC, 1:1 provided. Pt reports being open to speaking with Dr Craig. Pt denies questions at this time. Will continue to monitor and asses.
[2018-02-20] MEDS: Menthol/Lanolin/Calamine/Znox 113 GM Tube 1 APPLIC TOPICAL ×2 (05:51→23:41)
[2018-02-20] MEDS: Nystatin Powder 15gm Bottle 1 APPLIC TOPICAL ×2 (05:51→23:46)
[2018-02-20] MEDS: Polyethylene Glycol 3350 17 GM PACKET PO (05:52)
[2018-02-20] MEDS: Bisacodyl 5 MG Tablet 10 MG PO (05:52)
[2018-02-20] MEDS: Senna/Docusate Sodium 1 Tablet 2 TABLET PO (05:52)
[2018-02-20] MEDS: Pantoprazole Sodium 20 MG Tablet PO (05:52)
[2018-02-20] MEDS: Enoxaparin 30 MG/0.3 ML Syringe SC (05:52)
[2018-02-20] MEDS: BETHANECHOL CHLORIDE 25 MG TABLET PO ×4 (05:52→23:46)
[2018-02-20 06:06] LABS: Bedside Glucose 66 mg/dL (70-110)
[2018-02-20 06:55] LABS: Bedside Glucose 89 mg/dL (70-110)
--- NOTE | 2018-02-20 07:33 | NURSING ---
Fentanyl patch noted to left deltoid.
--- NOTE | 2018-02-20 08:24 | NURSING ---
dr croft will speak with daughters and pt regarding hospice. daughter will be in at 1545 today.
[2018-02-20] MEDS: Divalproex Sodium 250 MG Tablet 500 MG PO ×2 (09:26→18:23)
[2018-02-20] MEDS: Aspirin E.C. 81 MG Tablet PO (09:26)
[2018-02-20] MEDS: oxyCODONE 5 MG Tablet 20 MG PO ×3 (09:27→23:56)
[2018-02-20 11:25] LABS: Bedside Glucose 169 mg/dL (70-110)
[2018-02-20 11:30] VITALS: PULSE 92; RESP 16
[2018-02-20 15:49] VITALS: BP 124/65; PULSE 105; RESP 20; TEMP 36.6; O2SAT 94
--- NOTE | 2018-02-20 15:56 | PCM.TCUNOT ---
Subjective: Resident seen in room lying in bed, 2 daughters present for discussion. 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 Dr. Barnett offered chemotherapy, but only if resident recovered from stroke. Resident has recent stroke with dense right hemiparesis. Therapy has noted she is declining and not doing well with therapy. Resident also has severe pain, the pain is diffuse and difficult to control, I have prescribed Oxycodone, Fentanyl, Depakote, and she still states the pain is unmanageable. Nutrition status is poor, she is not eating well, resident has very little appetite, lack of nutrition is not helping her therapy. Katie has also developed sacral pressure ulcer, Dr. Smith recommends debridement with wound vac, but due to her co-morbidities, I believe her sacral wound will not heal. I recommended hospice care, I believe she qualifies for inpatient hospice for pain control. From there, she could discharge to half-way with hospice. I did mention if she improves in hospice, hospice can be discontinued. Vitals/I&O's: Vital Signs Temp Pulse Resp BP Pulse Ox 97.9 F 105 H 20 H 124/65 H 94 02/20/18 15:49 02/20/18 15:49 02/20/18 15:49 02/20/18 15:49 02/20/18 15:49 Oxygen Flow Rate (L/min) 2 Oxygen Delivery Method Room Air Weight: 69.037 kg Body Mass Index (BMI) 24.2 Intake and Output for Last 24 Hours 02/18/18 02/19/18 02/20/18 23:59 23:59 23:59 Intake Total 410 / 410 530 / 530 480 / 480 Output Total 850 / 850 825 / 825 150 / 150 Balance -440 / -440 -295 / -295 330 / 330 Microbiology Past 72 Hours 02/17/18 09:10 Wound - Sacral Gram Stain - Final 02/17/18 09:10 Wound - Sacral Wound Culture - Preliminary Pseudomonas spp Alpha Hemolytic Streptococcus Gram positive rogelio 02/17/18 09:10 Wound - Sacral Anaerobic Culture - Preliminary Checking for anaerobes, further studies to follow. 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) Medical History: Medical History (Last Updated 02/11/18 @ 12:30 by Joselyn Guerrero) 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 Skin ulcer of buttock, limited to breakdown of skin L98.411 Splenic artery aneurysm I72.8 s/p coil embolization 12/2001 Degenerative disc disease Mixed hyperlipidemia E78.2 Other spondylosis, thoracic region M47.894 Peripheral neuropathy G62.9 Radiculopathy of cervical spine M54.12 history of tumor excision parotid gland s/p radiation Allergies cephalexin [From Keflex] Allergy (Verified 02/10/18 15:41) Rash ciprofloxacin [From Cipro] Adverse Reaction (Verified 02/10/18 15:41) Rash erythromycin base Adverse Reaction (Verified 02/10/18 15:41) Rash Penicillins Adverse Reaction (Verified 02/10/18 15:41) Rash sulfamethoxazole [From Bactrim] Adverse Reaction (Verified 02/10/18 15:41) Rash trimethoprim [From Bactrim] Adverse Reaction (Verified 02/10/18 15:41) Rash Home Medications: Ambulatory Orders Medication Instructions Recorded Calcium Carbonate/Vitamin D3 1 tab PO DAILY 12/18/17 [Caltrate 600 Plus D3 Tablet] Cholecalciferol (Vitamin D3) 2,000 unit PO DAILY 01/04/18 [Vitamin D3] Montelukast Sodium 10 mg PO QHS 01/05/18 Amitriptyline HCl [Elavil] 10 mg PO QHS 01/22/18 Aspirin E.C. [Ecotrin] 81 mg PO DAILY@0800 01/22/18 Atorvastatin Calcium 40 mg PO QHS 01/22/18 Clobetasol Propionate [Temovate 1 applic TOPICAL DAILY 01/22/18 Ointment] Dexamethasone [Decadron] 4 mg PO BIDCM 01/22/18 Gabapentin [Neurontin] 300 mg PO QHS 01/22/18 Guaifenesin [Mucinex] 1,200 mg PO BID 01/22/18 Insulin Lispro [Humalog KwikPen] 15 unit SQ TIDCM 01/22/18 Lactulose [Chronulac, Cephulac] 20 gm PO TID 01/22/18 Loratadine/Pseudo 240/10 1 tablet PO DAILY PRN PRN 01/22/18 [Claritin-D 24 Hr] Nitroglycerin 0.4 mg SL X1 PRN 01/22/18 [place]-3 Fatty Acids [Fish Oil] 500 mg PO DAILY 01/22/18 Omeprazole [Prilosec] 20 mg PO DAILY 01/22/18 Oxycodone [Oxyir] 20 mg PO Q3H PRN 01/22/18 Senna/Docusate Sodium [Senokot-S, 2 tablet PO BID 01/22/18 Sheila-Colace] Sertraline HCl [Zoloft] 25 mg PO DAILY 01/22/18 Topiramate [Topamax] 25 mg PO QHS PRN PRN 01/22/18 traZODone [Desyrel] 50 mg PO QHS 01/22/18 Surgical History: Surgical History (Last Updated 02/10/18 @ 16:07 by Joselyn Guerrero) History of cholecystectomy Z90.49 History of hernia repair Z98.890, Z87.19 X 5 History of partial hysterectomy Z90.711 Surgical History: - - parotid surgery Psychiatric History: No pertinent 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 Smoking Status: Former smoker Tobacco Use: Non-smoker Alcohol: None Drugs: None - *Family History Maternal Family History: Family History (Last Updated 02/10/18 @ 16:09 by Joselyn Guerrero) Mother Basal cell carcinoma Heart disease Grandfather Kidney disease Heart disease Aunt Breast cancer Ovarian cancer Grandmother Breast cancer History Items: No pertinent history Paternal Family History: Family History (Last Updated 02/10/18 @ 16:09 by Joselyn Guerrero) Mother Basal cell carcinoma Heart disease Grandfather Kidney disease Heart disease Aunt Breast cancer Ovarian cancer Grandmother Breast cancer History Items: No pertinent history Review of Systems Constitutional: Reports: Anorexia. Denies: Chills, Fever, Weight Change Eyes: Reports: Pain HEENT: Denies: Head Aches, Sinus Congestion, Sinus Drainage Cardiovascular: Denies: Chest Pain, Palpitations Respiratory: Denies: Cough, Shortness of breath at rest, Sputum production Gastrointestinal: Denies: Abdominal Pain, Nausea, Vomiting Genitourinary: Denies: Dysuria Musculoskeletal: Denies: Joint Pain, Joint Tenderness Skin: Denies: Rash, Wounds Neurological: Denies: Numbness, Tingling, Focal weakness Psychiatric: Denies: Anxiety, Depression, Homicidal Ideations, Suicidal Ideations Hematologic/ Lymphatic: Denies: Easy Bruising, Easy Bleeding Patient Problems: Active and Suspected Problems (Last Updated 02/11/18 @ 12:30 by Joselyn Guerrero) Metastatic sarcoma (Acute) Stroke (Acute) Right hemiplegia (Acute) Urinary incontinence (Acute) - Physical Exam General: Alert, Oriented x3, Cooperative HEENT: Atraumatic, PERRLA, EOMI, Normocephalic Neck: Supple, No JVD, Negative Carotid Bruits Lungs: Clear to auscultation, Normal air movement Cardiovascular: Regular rate, No murmurs Abdomen: Bowel Sounds Present, Soft, Non Tender Extremities: No edema, Capillary Refill Less than 3 Seconds Skin: No rashes, No breakdown Musculoskeletal: No Tenderness to Palpation of Joints or Extremities Neurological: Cranial nerves II-XII grossly intact Psych/Mental Status: Normal Affect, Appropriate Vital Signs Temp Pulse Resp BP Pulse Ox 97.9 F 105 H 20 H 124/65 H 94 02/20/18 15:49 02/20/18 15:49 02/20/18 15:49 02/20/18 15:49 02/20/18 15:49 Oxygen Flow Rate (L/min) 2 Oxygen Delivery Method Room Air Weight: 69.037 kg Body Mass Index (BMI) 24.2 Intake and Output for Last 24 Hours 02/18/18 02/19/18 02/20/18 23:59 23:59 23:59 Intake Total 410 / 410 530 / 530 480 / 480 Output Total 850 / 850 825 / 825 150 / 150 Balance -440 / -440 -295 / -295 330 / 330 Microbiology Past 72 Hours 02/17/18 09:10 Gram Stain - Final Wound - Sacral Wound Culture - Preliminary Pseudomonas spp Alpha Hemolytic Streptococcus Gram positive rogelio Anaerobic Culture - Preliminary Checking for anaerobes, further studies to follow. 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 Metastatic sarcoma - Chemotherapy when done with therapy, resident wants to pursue treatment, she is READY for hospice, Refer to [facility]. Neuropathic pain - Gabapentin 300MG QHS. Chronic pain - Oxycodone 20MG Q4H PRN, Fentanyl patch 25MCG Q72H, Depakote 500MG BID. Nutrition - Resident dying, not eating. Sacral pressure ulcer - Dr. Smith consulted, he is planning debridement, wound vac early next week, will try to admit to hospice prior to surgery.
--- NOTE | 2018-02-20 16:01 | PN_ITS ---
Subjective: Resident seen in room lying in bed, 2 daughters present for discussion. 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 Dr. Barnett offered chemotherapy, but only if resident recovered from stroke. Resident has recent stroke with dense right hemiparesis. Therapy has noted she is declining and not doing well with therapy. Resident also has severe pain, the pain is diffuse and difficult to control, I have prescribed Oxycodone, Fentanyl, Depakote, and she still states the pain is unmanageable. Nutrition status is poor, she is not eating well, resident has very little appetite, lack of nutrition is not helping her therapy. Katie has also developed sacral pressure ulcer, Dr. Smith recommends debridement with wound vac, but due to her co-morbidities, I believe her sacral wound will not heal. I recommended hospice care, I believe she qualifies for inpatient hospice for pain control. From there, she could discharge to intermediate with hospice. I did mention if she improves in hospice, hospice can be discontinued. Vitals/I&O's: Vital Signs Temp Pulse Resp BP Pulse Ox 97.9 F 105 H 20 H 124/65 H 94 02/20/18 15:49 02/20/18 15:49 02/20/18 15:49 02/20/18 15:49 02/20/18 15:49 Oxygen Flow Rate (L/min) 2 Oxygen Delivery Method Room Air Weight: 69.037 kg Body Mass Index (BMI) 24.2 Intake and Output for Last 24 Hours 02/18/18 02/19/18 02/20/18 23:59 23:59 23:59 Intake Total 410 / 410 530 / 530 480 / 480 Output Total 850 / 850 825 / 825 150 / 150 Balance -440 / -440 -295 / -295 330 / 330 Microbiology Past 72 Hours 02/17/18 09:10 Wound - Sacral Gram Stain - Final 02/17/18 09:10 Wound - Sacral Wound Culture - Preliminary Pseudomonas spp Alpha Hemolytic Streptococcus Gram positive rogelio 02/17/18 09:10 Wound - Sacral Anaerobic Culture - Preliminary Checking for anaerobes, further studies to follow. 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) Medical History: Medical History (Last Updated 02/11/18 @ 12:30 by Joselyn Guerrero) 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 Skin ulcer of buttock, limited to breakdown of skin L98.411 Splenic artery aneurysm I72.8 s/p coil embolization 12/2001 Degenerative disc disease Mixed hyperlipidemia E78.2 Other spondylosis, thoracic region M47.894 Peripheral neuropathy G62.9 Radiculopathy of cervical spine M54.12 history of tumor excision parotid gland s/p radiation Allergies cephalexin [From Keflex] Allergy (Verified 02/10/18 15:41) Rash ciprofloxacin [From Cipro] Adverse Reaction (Verified 02/10/18 15:41) Rash erythromycin base Adverse Reaction (Verified 02/10/18 15:41) Rash Penicillins Adverse Reaction (Verified 02/10/18 15:41) Rash sulfamethoxazole [From Bactrim] Adverse Reaction (Verified 02/10/18 15:41) Rash trimethoprim [From Bactrim] Adverse Reaction (Verified 02/10/18 15:41) Rash Home Medications: Ambulatory Orders Medication Instructions Recorded Calcium Carbonate/Vitamin D3 1 tab PO DAILY 12/18/17 [Caltrate 600 Plus D3 Tablet] Cholecalciferol (Vitamin D3) 2,000 unit PO DAILY 01/04/18 [Vitamin D3] Montelukast Sodium 10 mg PO QHS 01/05/18 Amitriptyline HCl [Elavil] 10 mg PO QHS 01/22/18 Aspirin E.C. [Ecotrin] 81 mg PO DAILY@0800 01/22/18 Atorvastatin Calcium 40 mg PO QHS 01/22/18 Clobetasol Propionate [Temovate 1 applic TOPICAL DAILY 01/22/18 Ointment] Dexamethasone [Decadron] 4 mg PO BIDCM 01/22/18 Gabapentin [Neurontin] 300 mg PO QHS 01/22/18 Guaifenesin [Mucinex] 1,200 mg PO BID 01/22/18 Insulin Lispro [Humalog KwikPen] 15 unit SQ TIDCM 01/22/18 Lactulose [Chronulac, Cephulac] 20 gm PO TID 01/22/18 Loratadine/Pseudo 240/10 1 tablet PO DAILY PRN PRN 01/22/18 [Claritin-D 24 Hr] Nitroglycerin 0.4 mg SL X1 PRN 01/22/18 [place]-3 Fatty Acids [Fish Oil] 500 mg PO DAILY 01/22/18 Omeprazole [Prilosec] 20 mg PO DAILY 01/22/18 Oxycodone [Oxyir] 20 mg PO Q3H PRN 01/22/18 Senna/Docusate Sodium [Senokot-S, 2 tablet PO BID 01/22/18 Sheila-Colace] Sertraline HCl [Zoloft] 25 mg PO DAILY 01/22/18 Topiramate [Topamax] 25 mg PO QHS PRN PRN 01/22/18 traZODone [Desyrel] 50 mg PO QHS 01/22/18 Surgical History: Surgical History (Last Updated 02/10/18 @ 16:07 by Joselyn Guerrero) History of cholecystectomy Z90.49 History of hernia repair Z98.890, Z87.19 X 5 History of partial hysterectomy Z90.711 Surgical History: - - parotid surgery 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 Smoking Status: Former smoker Tobacco Use: Non-smoker Alcohol: None Drugs: None - *Family History Maternal Family History: Family History (Last Updated 02/10/18 @ 16:09 by Joselny Guerrero) Mother Basal cell carcinoma Heart disease Grandfather Kidney disease Heart disease Aunt Breast cancer Ovarian cancer Grandmother Breast cancer History Items: No pertinent history Paternal Family History: Family History (Last Updated 02/10/18 @ 16:09 by Joselyn Guerrero) Mother Basal cell carcinoma Heart disease Grandfather Kidney disease Heart disease Aunt Breast cancer Ovarian cancer Grandmother Breast cancer History Items: No pertinent history Review of Systems Constitutional: Reports: Anorexia. Denies: Chills, Fever, Weight Change Eyes: Reports: Pain HEENT: Denies: Head Aches, Sinus Congestion, Sinus Drainage Cardiovascular: Denies: Chest Pain, Palpitations Respiratory: Denies: Cough, Shortness of breath at rest, Sputum production Gastrointestinal: Denies: Abdominal Pain, Nausea, Vomiting Genitourinary: Denies: Dysuria Musculoskeletal: Denies: Joint Pain, Joint Tenderness Skin: Denies: Rash, Wounds Neurological: Denies: Numbness, Tingling, Focal weakness Psychiatric: Denies: Anxiety, Depression, Homicidal Ideations, Suicidal Ideations Hematologic/ Lymphatic: Denies: Easy Bruising, Easy Bleeding Patient Problems: Active and Suspected Problems (Last Updated 02/11/18 @ 12:30 by Joselyn Guerrero) Metastatic sarcoma (Acute) Stroke (Acute) Right hemiplegia (Acute) Urinary incontinence (Acute) - Physical Exam General: Alert, Oriented x3, Cooperative HEENT: Atraumatic, PERRLA, EOMI, Normocephalic Neck: Supple, No JVD, Negative Carotid Bruits Lungs: Clear to auscultation, Normal air movement Cardiovascular: Regular rate, No murmurs Abdomen: Bowel Sounds Present, Soft, Non Tender Extremities: No edema, Capillary Refill Less than 3 Seconds Skin: No rashes, No breakdown Musculoskeletal: No Tenderness to Palpation of Joints or Extremities Neurological: Cranial nerves II-XII grossly intact Psych/Mental Status: Normal Affect, Appropriate Vital Signs Temp Pulse Resp BP Pulse Ox 97.9 F 105 H 20 H 124/65 H 94 02/20/18 15:49 02/20/18 15:49 02/20/18 15:49 02/20/18 15:49 02/20/18 15:49 Oxygen Flow Rate (L/min) 2 Oxygen Delivery Method Room Air Weight: 69.037 kg Body Mass Index (BMI) 24.2 Intake and Output for Last 24 Hours 02/18/18 02/19/18 02/20/18 23:59 23:59 23:59 Intake Total 410 / 410 530 / 530 480 / 480 Output Total 850 / 850 825 / 825 150 / 150 Balance -440 / -440 -295 / -295 330 / 330 Microbiology Past 72 Hours 02/17/18 09:10 Gram Stain - Final Wound - Sacral Wound Culture - Preliminary Pseudomonas spp Alpha Hemolytic Streptococcus Gram positive rogelio Anaerobic Culture - Preliminary Checking for anaerobes, further studies to follow. 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 * Metastatic sarcoma - Chemotherapy when done with therapy, resident wants to pursue treatment, she is READY for hospice, Refer to [facility]. * Neuropathic pain - Gabapentin 300MG QHS. * Chronic pain - Oxycodone 20MG Q4H PRN, Fentanyl patch 25MCG Q72H, Depakote 500MG BID. * Nutrition - Resident dying, not eating. * Sacral pressure ulcer - Dr. Smith consulted, he is planning debridement, wound vac early next week, will try to admit to hospice prior to surgery.
--- NOTE | 2018-02-20 16:10 | CASEMGMT ---
Social Work Referral to be made to [facility] - Inpatient Unit per Dr. Craig and resident/resident family request. Telephone call to [facility] Yanelis Zaragoza. This social work therapist making referral. Clinical information faxed. Yanelis to get back to this social work therapist on when they will be able to come and assess resident. Will continue to follow. MARQUES Hart, WHEEL CUTTER
--- NOTE | 2018-02-20 17:37 | NURSING ---
Addendum entered by Elza Johnson 02/20/18 18:17: FAMILY & PT NOT READY FOR INPT HOSPICE AT THIS TIME. Original Note: HOSPICE NURSE HERE TO ASSESS PT FOR INPT HOSPICE, FAMILY AT BEDSIDE.
[2018-02-20 17:45] LABS: Bedside Glucose 100 mg/dL (70-110)
[2018-02-20] MEDS: Tamsulosin HCl 0.4 MG Capsule PO (18:22)
[2018-02-20 20:56] LABS: Bedside Glucose 179 mg/dL (70-110)
[2018-02-20] MEDS: Gabapentin 300 MG Capsule PO (23:43)
[2018-02-20] MEDS: Montelukast 10 MG Tablet PO (23:44)
[2018-02-20] MEDS: Atorvastatin Calcium 40 MG Tablet PO (23:44)
[2018-02-20] MEDS: Doxepin Hcl 25 MG Capsule PO (23:45)
[2018-02-21] MEDS: Senna/Docusate Sodium 1 Tablet 2 TABLET PO ×2 (06:32→18:58)
[2018-02-21] MEDS: Bisacodyl 5 MG Tablet 10 MG PO (06:32)
[2018-02-21] MEDS: Pantoprazole Sodium 20 MG Tablet PO (06:32)
[2018-02-21] MEDS: Menthol/Lanolin/Calamine/Znox 113 GM Tube 1 APPLIC TOPICAL ×2 (06:33→22:58)
[2018-02-21] MEDS: BETHANECHOL CHLORIDE 25 MG TABLET PO ×4 (06:33→22:39)
[2018-02-21] MEDS: Polyethylene Glycol 3350 17 GM PACKET PO (06:34)
[2018-02-21] MEDS: Enoxaparin 30 MG/0.3 ML Syringe SC (06:35)
[2018-02-21] MEDS: Nystatin Powder 15gm Bottle 1 APPLIC TOPICAL ×2 (06:36→22:58)
[2018-02-21] MEDS: oxyCODONE 5 MG Tablet 20 MG PO ×4 (06:39→22:38)
[2018-02-21 07:06] LABS: Bedside Glucose 96 mg/dL (70-110)
[2018-02-21] MEDS: Divalproex Sodium 250 MG Tablet 500 MG PO ×2 (09:11→18:57)
[2018-02-21] MEDS: Aspirin E.C. 81 MG Tablet PO (09:12)
[2018-02-21 11:40] LABS: Bedside Glucose 117 mg/dL (70-110)
[2018-02-21 15:48] VITALS: BP 91/52; PULSE 98; RESP 14; TEMP 36.1; O2SAT 90
[2018-02-21 17:11] LABS: Bedside Glucose 130 mg/dL (70-110)
[2018-02-21] MEDS: Tamsulosin HCl 0.4 MG Capsule PO (18:57)
[2018-02-21 21:21] LABS: Bedside Glucose 328 mg/dL (70-110)
[2018-02-21] MEDS: fentaNYL 25 MCG Patch TRANSDERM. (21:33)
--- NOTE | 2018-02-21 21:35 | NURSING ---
New Duragesic patch applied to Right Shoulder.
--- NOTE | 2018-02-21 21:40 | NURSING ---
Dr Craig notified of pt's blood sugar this evening of 328. NNO.
[2018-02-21] MEDS: Doxepin Hcl 25 MG Capsule PO (22:38)
[2018-02-21] MEDS: Montelukast 10 MG Tablet PO (22:38)
[2018-02-21] MEDS: Gabapentin 300 MG Capsule PO (22:39)
[2018-02-21] MEDS: Atorvastatin Calcium 40 MG Tablet PO (22:39)
[2018-02-21 23:00] VITALS: PULSE 93; O2SAT 94
--- NOTE | 2018-02-21 23:10 | NURSING ---
Pt refusing dressing change this evening, stating it is too painful. Educated on importance of dressing changes to keep wound clean. Pt continues to refuse despite being medicated for pain prior to dressing change. Will offer again in morning.
[2018-02-22] MEDS: oxyCODONE 5 MG Tablet 20 MG PO ×2 (03:16→11:44)
[2018-02-22] MEDS: Menthol/Lanolin/Calamine/Znox 113 GM Tube 1 APPLIC TOPICAL (06:52)
[2018-02-22] MEDS: BETHANECHOL CHLORIDE 25 MG TABLET PO ×2 (06:52→11:52)
[2018-02-22] MEDS: Bisacodyl 5 MG Tablet 10 MG PO (06:52)
[2018-02-22] MEDS: Enoxaparin 30 MG/0.3 ML Syringe SC (06:53)
[2018-02-22] MEDS: Nystatin Powder 15gm Bottle 1 APPLIC TOPICAL (06:53)
[2018-02-22] MEDS: Pantoprazole Sodium 20 MG Tablet PO (06:53)
[2018-02-22 07:56] LABS: Bedside Glucose 78 mg/dL (70-110)
[2018-02-22] MEDS: Divalproex Sodium 250 MG Tablet 500 MG PO (09:06)
[2018-02-22] MEDS: Aspirin E.C. 81 MG Tablet PO (09:06)
[2018-02-22 11:55] LABS: Bedside Glucose 125 mg/dL (70-110)
--- NOTE | 2018-02-22 13:36 | NURSING ---
Pt continues to complain of severe pain to coccyx, has very little appetite and is fatigued. Family in and updated on decline, is willing to meet with Hospice nurse again for possible placement in inpatient Hospice unit. Dr. Craig updated. Hospice nurse called and made aware. Securities Consultant will be out today to meet with patient and family.
--- NOTE | 2018-02-22 15:53 | NURSING ---
Hospice here to meet with patient and family, patient decided she would like to go the inpatient hospice unit. Report called to SAMANTHA Aldana at [facility]. Patient left via squad at [phone]. Support given to family and patient.
[2018-02-22 15:56] VITALS: BP 95/60; PULSE 95; RESP 22; TEMP 36.1; O2SAT 92
--- NOTE | 2018-02-22 21:21 | PCM.DC ---
You will use the following diet at home:: No restrictions, Regular Your food should be the consistency of: Regular Your liquids should be the consistency of: Regular/Thin Discharge Activity: Use Walker Weight Bearing Status: Weight bearing as tolerated Call your doctor if you observe: Fever of 101 or Higher, Inability to urinate, Inability to have a bowel movement, Shortness of breath, Chest pain, Uncontrolled pain Allergies/Adverse Reactions: Allergies cephalexin [From Keflex] Allergy (Verified 02/10/18 15:41) Rash ciprofloxacin [From Cipro] Adverse Reaction (Verified 02/10/18 15:41) Rash erythromycin base Adverse Reaction (Verified 02/10/18 15:41) Rash Penicillins Adverse Reaction (Verified 02/10/18 15:41) Rash sulfamethoxazole [From Bactrim] Adverse Reaction (Verified 02/10/18 15:41) Rash trimethoprim [From Bactrim] Adverse Reaction (Verified 02/10/18 15:41) Rash Medications to take at Discharge Calcium Carbonate/Vitamin D3 [Caltrate 600 Plus D3 Tablet] 1 tab PO DAILY 12/18/17 Cholecalciferol (Vitamin D3) [Vitamin D3] 2,000 unit PO DAILY 01/04/18 Montelukast Sodium 10 mg PO QHS 01/05/18 Amitriptyline HCl [Elavil] 10 mg PO QHS 01/22/18 Aspirin E.C. [Ecotrin] 81 mg PO DAILY@0800 01/22/18 Atorvastatin Calcium 40 mg PO QHS 01/22/18 Clobetasol Propionate [Temovate Ointment] 1 applic TOPICAL DAILY 01/22/18 Dexamethasone [Decadron] 4 mg PO BIDCM 01/22/18 Gabapentin [Neurontin] 300 mg PO QHS 01/22/18 Guaifenesin [Mucinex] 1,200 mg PO BID 01/22/18 Insulin Lispro [Humalog KwikPen] 15 unit SQ TIDCM 01/22/18 Lactulose [Chronulac, Cephulac] 20 gm PO TID 01/22/18 Loratadine/Pseudo 240/10 [Claritin-D 24 Hr] 1 tablet PO DAILY PRN PRN 01/22/18 Nitroglycerin 0.4 mg SL X1 PRN 01/22/18 [place]-3 Fatty Acids [Fish Oil] 500 mg PO DAILY 01/22/18 Omeprazole [Prilosec] 20 mg PO DAILY 01/22/18 Oxycodone [Oxyir] 20 mg PO Q3H PRN 01/22/18 Senna/Docusate Sodium [Senokot-S, Sheila-Colace] 2 tablet PO BID 01/22/18 Sertraline HCl [Zoloft] 25 mg PO DAILY 01/22/18 Topiramate [Topamax] 25 mg PO QHS PRN PRN 01/22/18 traZODone [Desyrel] 50 mg PO QHS 01/22/18 Primary Care Physician: Janki Conrad MD [Primary Care Provider] - Please follow up with your Primary Care Physician in: PRN. Test Results: Test results from this visit will be discussed in further detail at your follow-up appointment, if applicable. Please Follow Up With: Froylan Saunders MD When: [phone] Please Follow Up With: Kenrick Barnett MD When: [phone] Please Follow Up With: Gene Duke MD When: [phone] Please Follow Up With: Dr Shefali Morris - Cancelled 01/30/18 Please Follow Up With: Dr Barnett Proposed Discharge Date: 02/22/18
--- NOTE | 2018-02-22 21:23 | PCM.DC.SUM ---
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 Coocyx area Operations: None Procedures: None Summary of Care Provided: The patient is a 72 year old Female with below past medical history significant for metastatic sarcoma, hospitalized for stroke, dense right hemiplegia, admitted to TCU with debility, here for rehabilitation, strengthening, prior to disposition determination. Resident had functional decline, not eating, uncontrolled pain. Discharge to Inpatient Hospice Facility for sympton control, end of life care. - Physical Exam Vital Signs Temp Pulse Resp BP Pulse Ox 96.9 F L 95 22 H 95/60 92 02/22/18 15:56 02/22/18 15:56 02/22/18 15:56 02/22/18 15:56 02/22/18 15:56 Oxygen Flow Rate (L/min) 2 Oxygen Delivery Method Room Air Weight: 69.037 kg Body Mass Index (BMI) 24.2 Intake and Output for Last 24 Hours 02/20/18 02/21/18 02/22/18 23:59 23:59 23:59 Intake Total 660 / 660 400 / 400 500 / 500 Output Total 150 / 150 1900 / 1900 Balance 510 / 510 -1500 / -1500 500 / 500 Microbiology Past 72 Hours 02/17/18 09:10 Gram Stain - Final Wound - Sacral Wound Culture - Final Pseudomonas spp Kocuria kristinae Gram positive rogelio Anaerobic Culture - Preliminary Prevotella disiens Gram negative rogelio Anaerobic cocci POC Glucose 02/22/18 02/22/18 11:52 07:42 POC Glucose 125 H 78 Discharge Diet: No Restrictions Discharge Activity: Use Walker Weight Bearing Status: Weight bearing as tolerated Call your doctor if you observe: Fever of 101 or Higher, Inability to urinate, Inability to have a bowel movement, Shortness of breath, Chest pain, Uncontrolled pain Home Medications: Medications to take at Discharge Calcium Carbonate/Vitamin D3 [Caltrate 600 Plus D3 Tablet] 1 tab PO DAILY 12/18/17 Cholecalciferol (Vitamin D3) [Vitamin D3] 2,000 unit PO DAILY 01/04/18 Montelukast Sodium 10 mg PO QHS 01/05/18 Amitriptyline HCl [Elavil] 10 mg PO QHS 01/22/18 Aspirin E.C. [Ecotrin] 81 mg PO DAILY@0800 01/22/18 Atorvastatin Calcium 40 mg PO QHS 01/22/18 Clobetasol Propionate [Temovate Ointment] 1 applic TOPICAL DAILY 01/22/18 Dexamethasone [Decadron] 4 mg PO BIDCM 01/22/18 Gabapentin [Neurontin] 300 mg PO QHS 01/22/18 Guaifenesin [Mucinex] 1,200 mg PO BID 01/22/18 Insulin Lispro [Humalog KwikPen] 15 unit SQ TIDCM 01/22/18 Lactulose [Chronulac, Cephulac] 20 gm PO TID 01/22/18 Loratadine/Pseudo 240/10 [Claritin-D 24 Hr] 1 tablet PO DAILY PRN PRN 01/22/18 Nitroglycerin 0.4 mg SL X1 PRN 01/22/18 [place]-3 Fatty Acids [Fish Oil] 500 mg PO DAILY 01/22/18 Omeprazole [Prilosec] 20 mg PO DAILY 01/22/18 Oxycodone [Oxyir] 20 mg PO Q3H PRN 01/22/18 Senna/Docusate Sodium [Senokot-S, Sheila-Colace] 2 tablet PO BID 01/22/18 Sertraline HCl [Zoloft] 25 mg PO DAILY 01/22/18 Topiramate [Topamax] 25 mg PO QHS PRN PRN 01/22/18 traZODone [Desyrel] 50 mg PO QHS 01/22/18 Primary Care Physician: Janki Conrad MD [Primary Care Provider] - Please follow up with your Primary Care Physician in: PRN. Please Follow Up With: Froylan Saunders MD When: [phone] Please Follow Up With: Kenrick Barnett MD When: [phone] Please Follow Up With: Gene Duke MD When: [phone] Please Follow Up With: Dr Shefali Morris - Cancelled 01/30/18 Please Follow Up With: Dr Barnett Disposition: Hospice Medical Facility Minutes spent on discharge:: 30 Patient Condition:: Poor Medical Necessity - Tobacco Use Smoking Status: Former smoker Tobacco Use: Non-smoker Meaningful Use Info Meaningful Use Diagnoses (Choose all that apply): None applicable
--- NOTE | 2018-03-04 08:36 | MDS.RN ---
Information for the mds was obtained from review of the clinical record, interview of resident, staff, and direct observation of resident's care.
== END 2018-02-22 15:50 | disposition hospice, inpatient (51) | DRG 57 ==
PROVIDERS: Admitting Provider Family Medicine Geriatric Medicine; Family Provider Internal Medicine; PCP Internal Medicine; Visit Provider Family Medicine Geriatric Medicine
DX: I69.351 Hemiplegia and hemiparesis following cerebral infarction affecting right dominant side (principal); C79.89 Secondary malignant neoplasm of other specified sites; N39.0 Urinary tract infection, site not specified; T38.0X5A Adverse effect of glucocorticoids and synthetic analogues, initial encounter; E55.9 Vitamin D deficiency, unspecified; K21.9 Gastro-esophageal reflux disease without esophagitis; F32.9 Major depressive disorder, single episode, unspecified; R32 Unspecified urinary incontinence; I25.10 Atherosclerotic heart disease of native coronary artery without angina pectoris; B96.5 Pseudomonas (aeruginosa) (mallei) (pseudomallei) as the cause of diseases classified elsewhere; G89.29 Other chronic pain; L89.150 Pressure ulcer of sacral region, unstageable; I10 Essential (primary) hypertension; R33.9 Retention of urine, unspecified; E78.2 Mixed hyperlipidemia; E11.42 Type 2 diabetes mellitus with diabetic polyneuropathy; B96.20 Unspecified Escherichia coli [E. coli] as the cause of diseases classified elsewhere; B35.4 Tinea corporis; Z85.818 Personal history of malignant neoplasm of other sites of lip, oral cavity, and pharynx; Z87.891 Personal history of nicotine dependence; Z92.3 Personal history of irradiation
CPT/HCPCS: 36415; 73600; 74018; 80048; 81001; 82962; 84550; 85025; 85652; 86140; 87070; 87075; 87076; 87077; 87086; 87088; 87184; 87186; 87205; 87640; 92507; 92523; 92526; 92610; 93970; 97014; 97032; 97110; 97112; 97140; 97163; 97167; 97530; 97535; 97802; G0283